=== PATIENT | female | born 1960 | race Caucasian/White ===

== ENCOUNTER 2017-02-12 01:41 | Inpatient (IN) | payer MEDICARE ==
[~2017-02-12] VITALS: Ht 162.6 cm; Wt 51.3 kg
[~2017-02-12 01:41] MED LIST: ACYC-1 PO; AUGM875T PO; BUPR-197 PO; CARB200T16 PO; CLIN150 PO; DETR2TAB PO; IBUP800T23 PO; KLON2TAB PO; MACR100C PO; TESS200C PO; VENTAER INH
[2017-02-12 01:55] VITALS: BP 119/81; PULSE 79; RESP 22; TEMP 98; O2SAT 99
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
[2017-02-12 02:37] LABS: ALT (GPT) 19 U/L (10-53); ANION GAP 8 MEQ/L (5-15); AST (GOT) 21 U/L (15-37); BICARBONATE 28.5 MEQ/L (21.0-32.0); BLOOD UREA NITROGEN 5 MG/DL (7-18); CHLORIDE 103 MEQ/L (98-107); GLOMERULAR FILTRATION RATE 68 ML/MIN (>89); POTASSIUM 3.9 MEQ/L (3.5-5.1); SODIUM (NA) 139 MEQ/L (136-145)
[2017-02-12 02:39] LABS: ACETAMINOPHEN LESS THAN 2.0 MCG/ML (10.0-30.0); ALKALINE PHOSPHATASE 130 U/L (45-117); TOTAL BILIRUBIN ADULT 0.5 MG/DL (0.2-1.0)
[2017-02-12 04:22] LABS: AMPHETAMINE, URINE NEG (NEG); BACTERIA, URINE RARE /hpf; BARBITURATES, URINE NEG (NEG); BLOOD, URINE NEG (NEG); COCAINE, URINE NEG (NEG); GLUCOSE,URINE NEG (NEG); KETONE, URINE NEG (NEG); NITRITE,URINE NEG (NEG); SQUAMOUS EPITHELIAL CELL URINE 1 /hpf (0-5); URINE COLOR YELLOW (YELLW/STRAW)
[2017-02-12 04:23] LABS: COMMENT (UR) CULT NOT INDICATED; CULTURE IF INDICATED CULT NOT INDICATED
[2017-02-12 06:12] VITALS: BP 115/78; PULSE 75; RESP 20; O2SAT 99
[2017-02-12 10:25] VITALS: BP 122/70; PULSE 92; RESP 18; TEMP 99; O2SAT 95
[2017-02-12] MEDS ORDERED: OLANZapine ODT 10 MG TAB PO ONE (12:45)
[2017-02-12] MEDS ORDERED: PHEN-426 PO (12:57)
[2017-02-12] MEDS ORDERED: carBAMazepine 200 MG TAB PO SCH (13:00)
[2017-02-12] MEDS ORDERED: BENZ1TAB PO (13:34)
[2017-02-12] MEDS ORDERED: SAPH10SU3 SL (13:34)
[2017-02-12] MEDS ORDERED: ZYPR15TA PO (13:34)
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
[2017-02-12 14:00] VITALS: BP 107/59; PULSE 87; RESP 18
[2017-02-12] MEDS ORDERED: PHENAZOPYRIDINE HCL 100 MG TAB PO PRN (14:00)
[2017-02-12] MEDS ORDERED: MAGNESIUM HYDROXIDE SUSP 30 ML CUP PO PRN (14:00)
[2017-02-12] MEDS ORDERED: ALUMINUM/MAGNESIUM/SIMETH 30 ML CUP PO PRN (14:00)
[2017-02-12] MEDS ORDERED: ALBUTEROL SULFATE 90 MCG/ACT HFA 18 GM INHALER INH PRN (14:15)
[2017-02-12] MEDS ORDERED: clonazePAM 1 MG TAB PO ONE (15:00)
[2017-02-12] MEDS: buPROPion HCL 100 MG TAB PO SCH (15:00)
[2017-02-12] MEDS ORDERED: OLANZapine 10 MG TAB PO ONE (15:00)
[2017-02-12] MEDS ORDERED: buPROPion HCL 100 MG SUSTAINED RELEASE TAB PO ONE (15:00)
[2017-02-12] MEDS: NICOTINE 21 MG/24 HR PATCH T-DERMAL SCH (16:00)
[2017-02-12 16:55] VITALS: BP 109/66; PULSE 83; RESP 19; TEMP 98.3; O2SAT 97
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
[2017-02-12] MEDS ORDERED: NICOTINE 21 MG/24 HR PATCH T-DERMAL SCH (18:00)
[2017-02-12] MEDS ORDERED: LORazepam 2 MG/ML VIAL IM PRN (18:00)
[2017-02-12] MEDS: ACYCLOVIR 800 MG TAB PO SCH (18:00)
[2017-02-12] MEDS ORDERED: diphenhydrAMINE HCL 50 MG/ML VIAL IM PRN (18:00)
[2017-02-12] MEDS ORDERED: REMOVE OLD PATCH T-DERMAL SCH ×2 (18:00→21:00)
[2017-02-12] MEDS: REMOVE OLD PATCH T-DERMAL SCH (21:00)
[2017-02-12] MEDS ORDERED: ASENAPINE 10 MG SL SCH (21:00)
[2017-02-12] MEDS ORDERED: SAPHRIS 5 MG SL SCH (21:00)
[2017-02-12] MEDS: BENZTROPINE MESYLATE 1 MG TAB PO SCH (21:00)
[2017-02-13] MEDS: ACETAMINOPHEN 325 MG TAB PO PRN ×2 (01:06→21:42)
[2017-02-13 05:53] VITALS: BP 117/56; PULSE 87; RESP 16; TEMP 97.1; O2SAT 100
[2017-02-13] MEDS: buPROPion HCL 100 MG TAB PO SCH ×2 (08:00→15:00)
[2017-02-13] MEDS: ACYCLOVIR 800 MG TAB PO SCH ×4 (08:56→21:00)
[2017-02-13] MEDS: NICOTINE 21 MG/24 HR PATCH T-DERMAL SCH (08:57)
--- NOTE | 2017-02-13 14:49 | HHI.PYPN ---
Subjective Remarks This is a request for second opinion. Patient was seen, admission note reviewed , and case discussed with nursing. Patient is hyperverbal with pressured speech. She is perseverative on discharge and minimizes her reasons for admission. When discussing her recent psychosis and history of mental health she becomes further irritable. He is not on medications at this time and we are waiting to obtain consents. Patient says she has a somewhat she could provide a phone number for the nursing will continue to work on it. Denies suicidal ideation intent or plan. Objective Alert: Yes [place]: Person (ox4), Place, Date Mood: Oppositional Affect: Labile Memory Intact: Comment (unable to tets) Hallucinations: Other (negative) Delusions: Yes Delusion Type: Paranoid Suicidal: Ideation (negative) Homicidal: Ideation (negative) Insight/Judgment Poor Vitals/IOs Vital Signs Date Time Temp Pulse Resp B/P Pulse Ox O2 Delivery O2 Flow Rate FiO2 02/13/17 05:53 97.1 87 16 117/56 100 02/12/17 14:00 Room Air Assessment & Plan Problem List: (1) Bipolar disorder with psychotic features ICD Code: F31.9 Assessment & Plan I agree with first opinion to continue petition. Criteria include labile mood with psychosis Justification for Cont. Inpt. Patient will decompensate in a less restrictive setting Apollo Hope DO Feb 13, 2017 14:49
[2017-02-13 15:17] VITALS: BP 112/60; PULSE 87; RESP 18; TEMP 99; O2SAT 99
[2017-02-13] MEDS: REMOVE OLD PATCH T-DERMAL SCH (21:00)
[2017-02-13] MEDS: BENZTROPINE MESYLATE 1 MG TAB PO SCH (21:39)
[2017-02-14] MEDS ORDERED: LORazepam 2 MG/ML VIAL IM ONE (00:45)
[2017-02-14] MEDS ORDERED: OLANZapine IM 10 MG VIAL IM ONE (00:45)
[2017-02-14 06:07] VITALS: BP 118/66; PULSE 77; RESP 21; TEMP 98; O2SAT 96
[2017-02-14] MEDS: ACYCLOVIR 800 MG TAB PO SCH ×5 (09:00→20:57)
[2017-02-14] MEDS: NICOTINE 21 MG/24 HR PATCH T-DERMAL SCH (09:26)
--- NOTE | 2017-02-14 11:28 | HHI.PYPN ---
Subjective Remarks Patient seen and examined with counselor and nurse. Chart reviewed. Case discussed with nursing staff who reports patient refused her laboratories this morning and believes that her brother is pursuing her. On my examination today , the patient is initially able to maintain reasonably linear thought but derails towards the end of our conversation. She articulates a belief that her brother is pursuing her and showing up at her hotel room and slashing her tires. She then deteriorates into random phrases including, "name of sign in [place]." "9 words." "I'm not a toilet." She also articulates a belief that "James Louis from [employer] is stalking me." She is fairly conversant regarding her medications and is able to list most of them. I have explained that the Saphris is not stocked in our pharmacy. We are awaiting consents for medications. Review of Systems ROS Limitations: Psychotic, Poor Historian Except as stated in HPI: all other systems reviewed are Neg Objective Alert: Yes [place]: Person, Place Mood: Anxious Affect: Blunted Memory Intact: Comment (not formally assessed) Hallucinations: Other (no AVH) Delusions: Yes Delusion Type: Paranoid (believes that brother and Christopher Louis are stalking her) Suicidal: Ideation (no SI) Homicidal: Ideation (no HI) Insight/Judgment Poor Remarks No motor abnormalities noted. Speech somewhat rambling. Thought process initially linear but derails with extended interview. Grooming and hygiene fair. Labs Labs reviewed. Patient did refuse several laboratories this morning, I will ask the nursing staff to try to have the aircraft engine installer obtain these later today. Vitals/IOs Vital Signs Date Time Temp Pulse Resp B/P Pulse Ox O2 Delivery O2 Flow Rate FiO2 02/14/17 06:07 98.0 77 21 118/66 96 02/12/17 14:00 Room Air Assessment & Plan Problem List: (1) Bipolar disorder ICD Code: F31.9 Assessment & Plan I have asked nursing staff to obtain consents for medications. We can continue patient's Klonopin, Wellbutrin, Tegretol and Saphris if she can have in this last medication brought in from home. Continue to monitor on the high acuity unit. Continue other medications and care as ordered. I have also asked the family law legal assistant to obtain the full text of the affidavit accompanying the ex parte order as this was not available on the chart for my review. Justification for Cont. Inpt. Impairment in reality construction. High risk for decompensation in a less restrictive environment. Discharge Planning Pending psychiatric stabilization. Problem Qualifiers (1) Bipolar disorder: Qualified Code: F31.64 - Bipolar disorder, current episode mixed, severe, with psychotic features Estuardo Mancilla MD Feb 14, 2017 11:28
[2017-02-14] MEDS: buPROPion HCL 100 MG TAB PO SCH (15:00)
[2017-02-14] MEDS: LORazepam 1 MG TAB PO PRN (15:40)
[2017-02-14] MEDS ORDERED: HALOPERIDOL LACTATE 5 MG/ML AMP IM STA (16:51)
[2017-02-14] MEDS ORDERED: diphenhydrAMINE HCL 50 MG/ML VIAL IM STA (16:51)
[2017-02-14] MEDS ORDERED: LORazepam 2 MG/ML VIAL IM STA (16:51)
[2017-02-14] MEDS: clonazePAM 0.5 MG TAB PO SCH (20:56)
[2017-02-14] MEDS: diphenhydrAMINE HCL 50 MG CAP PO PRN (20:56)
[2017-02-14] MEDS: carBAMazepine 200 MG TAB PO SCH (20:57)
[2017-02-14] MEDS: BENZTROPINE MESYLATE 1 MG TAB PO SCH (20:57)
[2017-02-14] MEDS: REMOVE OLD PATCH T-DERMAL SCH (21:00)
[2017-02-15 06:00] VITALS: BP 87/55; PULSE 67; RESP 18; TEMP 97.9; O2SAT 99
[2017-02-15] MEDS: buPROPion HCL 100 MG TAB PO SCH (08:00)
[2017-02-15] MEDS: carBAMazepine 200 MG TAB PO SCH ×2 (08:28→21:28)
[2017-02-15] MEDS: NICOTINE 21 MG/24 HR PATCH T-DERMAL SCH (08:29)
[2017-02-15] MEDS: ACYCLOVIR 800 MG TAB PO SCH ×4 (08:35→21:00)
[2017-02-15] MEDS ORDERED: clonazePAM 0.5 MG TAB PO SCH (09:00)
--- NOTE | 2017-02-15 11:09 | HHI.PYPN ---
Subjective Remarks Patient seen and examined with counselor and nurse. Chart reviewed. Case discussed with counselor, nurse and occupational therapist in treatment team. Per nursing staff, patient has been no further behavioral problem. On my examination today, the patient seems more linear in her thought process. We review her medications. The patient requests that her Klonopin be consolidated entirely to at night. She denies any SI or HI. She denies any AVH. She denies any side effects from medications. I did discuss patient's case with her outpatient bilingual patient support caseworker from the [facility] team, Fredi over the phone. She reports that the plan was to discontinue patient's Saphris anyway with Zyprexa as a replacement. Fredi notes that even at the patient's baseline she can maintain linear thought for only a brief time and then deteriorates into word salad. She has apparently been residing in a hotel recently because patient's mother is no longer able to care for her. Fredi is wondering if we would be able to place the patient in an assisted living setting. Review of Systems Except as stated in HPI: all other systems reviewed are Neg Objective Alert: Yes [place]: Person, Place Mood: Calm Affect: Blunted Memory Intact: Comment (not formally assessed) Hallucinations: Other (none) Delusions: No Delusion Type: Other (no delusional material elicited today) Suicidal: Ideation (no SI) Homicidal: Ideation (no HI) Insight/Judgment Poor Remarks No abnormal motor movements noted. Thought process more linear. Speech more logical and coherent. Labs Labs reviewed. No new labs. Vitals/IOs Vital Signs Date Time Temp Pulse Resp B/P Pulse Ox O2 Delivery O2 Flow Rate FiO2 02/15/17 06:00 97.9 67 18 87/55 99 02/12/17 14:00 Room Air Assessment & Plan Problem List: (1) Bipolar disorder ICD Code: F31.9 Assessment & Plan Continue current psychotropics as ordered except I will discontinue patient's Saphris, which she has not been receiving any way as it is not stocked in our pharmacy. I will additionally consolidate patient's Klonopin all to at bedtime. Check a set of orthostatics. I have asked the counselor to return to the unit to explore whether the patient is interested in assisted living placement at this time as I think that it would be fruitless to pursue this if she is set against it. Continue to monitor on the high acuity unit. Continue other medications and care as ordered. Justification for Cont. Inpt. Medication changes in process. Patient requires further stabilization and remains at high risk for decompensation until this occurs. Discharge Planning Pending psychiatric stabilization. GROUP HOME placement versus home. Request HC Surrog/Guard Advoc?: Yes Problem Qualifiers (1) Bipolar disorder: Qualified Code: F31.64 - Bipolar disorder, current episode mixed, severe, with psychotic features Estuardo Mancilla MD Feb 15, 2017 11:09
[2017-02-15] MEDS: buPROPion HCL 150 MG SUSTAINED RELEASE TAB PO SCH (12:32)
[2017-02-15 14:07] VITALS: BP 104/55; PULSE 89
[2017-02-15 14:08] VITALS: BP 100/58; PULSE 87
[2017-02-15 14:09] VITALS: BP 103/67; PULSE 96
[2017-02-15 14:49] LABS: BACTERIA, URINE RARE /hpf; BLOOD, URINE NEG (NEG); GLUCOSE,URINE NEG (NEG); KETONE, URINE NEG (NEG); NITRITE,URINE NEG (NEG); SQUAMOUS EPITHELIAL CELL URINE 4 /hpf (0-5); URINE COLOR LIGHT-YELLOW (YELLW/STRAW)
[2017-02-15 17:37] VITALS: BP 107/68; PULSE 80; RESP 16; TEMP 98.2; O2SAT 99
[2017-02-15] MEDS: REMOVE OLD PATCH T-DERMAL SCH (21:00)
[2017-02-15] MEDS: clonazePAM 0.5 MG TAB PO SCH (21:00)
[2017-02-15] MEDS: clonazePAM 1 MG TAB PO SCH (21:28)
[2017-02-15] MEDS: DOCUSATE SODIUM 100 MG CAP PO SCH (21:28)
[2017-02-15] MEDS: BENZTROPINE MESYLATE 1 MG TAB PO SCH (21:28)
[2017-02-15] MEDS: ACETAMINOPHEN 325 MG TAB PO PRN (21:34)
[2017-02-16 05:50] VITALS: BP 105/54; PULSE 74; RESP 17; TEMP 97; O2SAT 99
[2017-02-16] MEDS: buPROPion HCL 75 MG TAB PO SCH ×2 (08:00→12:23)
[2017-02-16 08:09] LABS: AUTOMATED NEUTROPHIL # 1.3 TH/MM3 (1.8-7.7); BASOPHIL % 1.2 % (0.0-2.0); EOSINOPHIL # 0.2 TH/MM3 (0-0.4); EOSINOPHIL % 6.7 % (0.0-4.0); HEMATOCRIT 35.2 % (35.0-46.0); HEMO FLAGS DIFF FINAL; LYMPH % 46.6 % (9.0-44.0); LYMPHOCYTE # 1.6 TH/MM3 (1.0-4.8); MEAN CELL VOLUME 101.4 FL (80.0-100.0); MEAN CORPUSCULAR HEMOGLOBIN 34.7 PG (27.0-34.0); MEAN CORPUSCULAR HGB CONC 34.3 % (32.0-36.0); MONO % 7.7 % (0.0-8.0); NEUT % 37.8 % (16.0-70.0); PLATELET COUNT 220 TH/MM3 (150-450); RED BLOOD COUNT 3.47 MIL/MM3 (4.00-5.30); RED CELL DISTRIBUTION WIDTH 13.4 % (11.6-17.2); WHITE BLOOD COUNT 3.4 TH/MM3 (4.0-11.0)
[2017-02-16] MEDS: buPROPion HCL 150 MG SUSTAINED RELEASE TAB PO SCH (08:33)
[2017-02-16] MEDS: DOCUSATE SODIUM 100 MG CAP PO SCH ×2 (08:34→20:31)
[2017-02-16] MEDS: carBAMazepine 200 MG TAB PO SCH ×2 (08:34→20:31)
[2017-02-16] MEDS: ACYCLOVIR 800 MG TAB PO SCH (08:35)
[2017-02-16] MEDS: NICOTINE 21 MG/24 HR PATCH T-DERMAL SCH (08:35)
[2017-02-16 08:44] LABS: ALKALINE PHOSPHATASE 94 U/L (45-117); ALT (GPT) 15 U/L (10-53); ANION GAP 6 MEQ/L (5-15); AST (GOT) 13 U/L (15-37); BICARBONATE 29.6 MEQ/L (21.0-32.0); BLOOD UREA NITROGEN 11 MG/DL (7-18); CHLORIDE 101 MEQ/L (98-107); GLOMERULAR FILTRATION RATE 84 ML/MIN (>89); POTASSIUM 4.2 MEQ/L (3.5-5.1); SODIUM (NA) 137 MEQ/L (136-145); TOTAL BILIRUBIN ADULT 0.2 MG/DL (0.2-1.0)
--- NOTE | 2017-02-16 11:59 | HHI.PYPN ---
Subjective Remarks Patient seen and examined with nurse and counselor. Chart reviewed. Case discussed with nursing staff reports patient has been no behavioral problem. On my examination today, the patient is calm and pleasant. As noted by the patient's corrections caseworker as a feature of the patient's baseline, the patient is able to maintain linear conversation for a fair amount of time today before derailing. We discuss concerns regarding patient's reported weight loss, but she says "I don't know why I am losing weight. My body just does this, off and on." I recommend senior technical recruiter or perhaps hospitalist consultation to evaluate this ; patient is somewhat reluctant. No SI/HI. Denies side effects from medications. Requests that Colace be titrated to 200 mg twice daily as this is what she takes at home. I have discussed outpatient treatment team's desire that the patient allow herself to be placed in an assisted living facility, and I have suggested this to her myself. The patient declines assisted living placement at this time. I did discuss patient's case briefly with her outpatient corrections caseworker over the phone. Review of Systems Except as stated in HPI: all other systems reviewed are Neg Objective Alert: Yes [place]: Person, Place Mood: Calm Affect: Appropriate Memory Intact: Comment (not formally assessed) Hallucinations: Other (no AVH) Delusions: No Delusion Type: Other (no delusions) Suicidal: Ideation (no suicidal ideation) Homicidal: Ideation (no homicidal ideation) Insight/Judgment Fair at best Remarks Thought processes fairly linear initially and then derails. No motor abnormalities noted. Grooming and hygiene fair. Labs Test 02/15/17 02/16/17 13:10 06:28 Urine Color LIGHT-YELLOW Urine Turbidity CLEAR Urine pH 6.0 Urine Specific [place] 1.005 Urine Protein NEG mg/dL Urine Glucose (UA) NEG mg/dL Urine Ketones NEG mg/dL Urine Occult Blood NEG Urine Nitrite NEG Urine Bilirubin NEG Urine Urobilinogen LESS THAN 2.0 MG/DL Urine Leukocyte Esterase NEG Urine RBC LESS THAN 1 /hpf Urine WBC 1 /hpf Urine Squamous Epithelial 4 /hpf Cells Urine Bacteria RARE /hpf Microscopic Urinalysis Comment White Blood Count 3.4 TH/MM3 Red Blood Count 3.47 MIL/MM3 Hemoglobin 12.0 GM/DL Hematocrit 35.2 % Mean Corpuscular Volume 101.4 FL Mean Corpuscular Hemoglobin 34.7 PG Mean Corpuscular Hemoglobin 34.3 % Concent Red Cell Distribution Width 13.4 % Platelet Count 220 TH/MM3 Mean Platelet Volume 8.9 FL Neutrophils (%) (Auto) 37.8 % Lymphocytes (%) (Auto) 46.6 % Monocytes (%) (Auto) 7.7 % Eosinophils (%) (Auto) 6.7 % Basophils (%) (Auto) 1.2 % Neutrophils # (Auto) 1.3 TH/MM3 Lymphocytes # (Auto) 1.6 TH/MM3 Monocytes # (Auto) 0.3 TH/MM3 Eosinophils # (Auto) 0.2 TH/MM3 Basophils # (Auto) 0.0 TH/MM3 CBC Comment DIFF FINAL Differential Comment Sodium Level 137 MEQ/L Potassium Level 4.2 MEQ/L Chloride Level 101 MEQ/L Carbon Dioxide Level 29.6 MEQ/L Anion Gap 6 MEQ/L Blood Urea Nitrogen 11 MG/DL Creatinine 0.72 MG/DL Estimat Glomerular Filtration 84 ML/MIN Rate Random Glucose 81 MG/DL Calcium Level 8.2 MG/DL Total Bilirubin 0.2 MG/DL Aspartate Amino Transf 13 U/L (AST/SGOT) Alanine Aminotransferase 15 U/L (ALT/SGPT) Alkaline Phosphatase 94 U/L Total Protein 5.8 GM/DL Albumin 3.0 GM/DL Thyroid Stimulating Hormone 2.180 uIU/ML 3rd Gen Labs reviewed. Leukopenia noted. Granulocytopenia noted. Both of these findings are new. Albumin low. Vitals/IOs Vital Signs Date Time Temp Pulse Resp B/P Pulse Ox O2 Delivery O2 Flow Rate FiO2 02/16/17 05:50 97.0 74 17 105/54 99 02/12/17 14:00 Room Air Assessment & Plan Problem List: (1) Bipolar disorder ICD Code: F31.9 Assessment & Plan Recheck CBC. Concern would be for granulocytopenia in the setting of antipsychotic treatment. If ANC remains low on recheck, will plan to consult the hospitalist. Continue current psychotropics as ordered for now. Consult with the dietitian. Continue to monitor on the inpatient unit. Continue other medications and care as ordered. Patient may sign voluntary and consent for medications. Justification for Cont. Inpt. Complicating conditions, possible granulocytopenia. Discharge Planning Complicating conditions may extend patient's hospital stay beyond the weekend, although in other respects she appears to be at or near her reported psychiatric baseline. Request HC Surrog/Guard Advoc?: Yes Problem Qualifiers (1) Bipolar disorder: Qualified Code: F31.64 - Bipolar disorder, current episode mixed, severe, with psychotic features Estuardo Mancilla MD Feb 16, 2017 11:59
[2017-02-16 18:40] VITALS: BP 116/57; PULSE 93; RESP 18; TEMP 100.3; O2SAT 99
[2017-02-16] MEDS: REMOVE OLD PATCH T-DERMAL SCH (20:31)
[2017-02-16] MEDS: BENZTROPINE MESYLATE 1 MG TAB PO SCH (20:31)
[2017-02-16] MEDS: clonazePAM 1 MG TAB PO SCH (20:31)
[2017-02-17 05:30] VITALS: BP 85/47; PULSE 77; RESP 17; TEMP 98.1; O2SAT 99
[2017-02-17 08:25] LABS: AUTOMATED NEUTROPHIL # 1.9 TH/MM3 (1.8-7.7); BASOPHIL % 1.1 % (0.0-2.0); EOSINOPHIL # 0.2 TH/MM3 (0-0.4); EOSINOPHIL % 4.9 % (0.0-4.0); HEMATOCRIT 34.6 % (35.0-46.0); HEMO FLAGS DIFF FINAL; LYMPH % 36.3 % (9.0-44.0); LYMPHOCYTE # 1.4 TH/MM3 (1.0-4.8); MEAN CELL VOLUME 99.7 FL (80.0-100.0); MEAN CORPUSCULAR HGB CONC 35.1 % (32.0-36.0); NEUT % 50.7 % (16.0-70.0); PLATELET COUNT 241 TH/MM3 (150-450); RED BLOOD COUNT 3.47 MIL/MM3 (4.00-5.30); RED CELL DISTRIBUTION WIDTH 13.3 % (11.6-17.2); WHITE BLOOD COUNT 3.7 TH/MM3 (4.0-11.0)
[2017-02-17] MEDS: buPROPion HCL 75 MG TAB PO SCH ×2 (08:42→12:12)
[2017-02-17] MEDS: carBAMazepine 200 MG TAB PO SCH ×2 (08:55→21:19)
[2017-02-17] MEDS: DOCUSATE SODIUM 100 MG CAP PO SCH ×2 (09:00→21:00)
[2017-02-17] MEDS: NICOTINE 21 MG/24 HR PATCH T-DERMAL SCH (09:00)
--- NOTE | 2017-02-17 11:48 | HHI.PYPN ---
Subjective Remarks Patient seen and examined with counselor. Chart reviewed. Case discussed with nursing staff who reports patient is rambling and discharge focused. On my examination today, the patient shows me a sheaf of newspaper advertisements for apartments. She insists that she be discharged so that she can look into some of them. She denies any SI or HI. Denies AVH. Thought process initially linear but then derails as before. Denies side effects from medications. I was preparing to discharge the patient AGAINST MEDICAL ADVICE and called over to patient's outpatient case reviewer, Fredi, to discuss my medical concerns about the patient as detailed below. I reached the case reviewer supervisor building maintenance and also spoke with patient's outpatient psychiatrist, Dr. Sylvester. They note that the patient is not at her baseline, but rather is at her recent baseline, which is in fact significantly decompensated from her normal level of function. Fredi is relatively new to the practice and so was unfortunately mistaken. Dr. ySlvester highlights patient's recurrent hospitalizations and significant functional impairment in the outpatient setting. He is gravely concerned about her ability to survive outside of the hospital at this time. Review of Systems ROS Limitations: Poor Historian Except as stated in HPI: all other systems reviewed are Neg Objective Alert: Yes [place]: Person, Place Mood: Calm Affect: Appropriate Memory Intact: Comment (not formally assessed) Hallucinations: Other (no AVH) Delusions: No Delusion Type: Other (no gabby delusions) Suicidal: Ideation (no suicidal ideation) Homicidal: Ideation (no homicidal ideation) Insight/Judgment Poor Remarks Thought process initially fairly linear but derails during the course of conversation. Grooming and hygiene fair. Speech somewhat rambling. Labs Test 02/17/17 07:26 White Blood Count 3.7 TH/MM3 Red Blood Count 3.47 MIL/MM3 Hemoglobin 12.1 GM/DL Hematocrit 34.6 % Mean Corpuscular Volume 99.7 FL Mean Corpuscular Hemoglobin 35.0 PG Mean Corpuscular Hemoglobin 35.1 % Concent Red Cell Distribution Width 13.3 % Platelet Count 241 TH/MM3 Mean Platelet Volume 8.7 FL Neutrophils (%) (Auto) 50.7 % Lymphocytes (%) (Auto) 36.3 % Monocytes (%) (Auto) 7.0 % Eosinophils (%) (Auto) 4.9 % Basophils (%) (Auto) 1.1 % Neutrophils # (Auto) 1.9 TH/MM3 Lymphocytes # (Auto) 1.4 TH/MM3 Monocytes # (Auto) 0.3 TH/MM3 Eosinophils # (Auto) 0.2 TH/MM3 Basophils # (Auto) 0.0 TH/MM3 CBC Comment DIFF FINAL Differential Comment Labs reviewed. ANC is improved somewhat on the recheck but patient remains leukopenic. Vitals/IOs Vital Signs Date Time Temp Pulse Resp B/P Pulse Ox O2 Delivery O2 Flow Rate FiO2 02/17/17 05:30 98.1 77 17 85/47 99 Assessment & Plan Problem List: (1) Bipolar disorder ICD Code: F31.9 Assessment & Plan Patient with leukopenia, possible granulocytopenia in the setting of antipsychotic treatment, although the patient has been refusing the last few doses of Zyprexa. I will consult the hospitalist to further evaluate this. I will hold patient's Zyprexa but continue her other psychotropics as ordered. Plan to check a carbamazepine level later this week. In light of new information from outpatient providers, I cannot discharge the patient at this time. If the patient completes of formal right of release, I will plan to initiate a petition for involuntary psychiatric hospitalization. Dietitian statistical consultant input noted and appreciated. Continue to monitor on the high acuity unit in the meantime. Continue other medications and care as ordered. Justification for Cont. Inpt. High risk for decompensation and a restrictive environment. Possible complicating conditions, namely the leukopenia. Discharge Planning Retain on the inpatient psychiatric unit for further observation and stabilization. I will ask the occupational therapist to evaluate the patient to further clarify her ability to complete activities of daily living. Request HC Surrog/Guard Advoc?: Yes Problem Qualifiers (1) Bipolar disorder: Qualified Code: F31.64 - Bipolar disorder, current episode mixed, severe, with psychotic features Estuardo Mancilla MD Feb 17, 2017 11:48
--- NOTE | 2017-02-17 15:52 | PD.CONS ---
HPI Service [facility] Hospitalists Consult Requested By Reason for Consult leukopenia Primary Care Physician No Primary Care Physician Diagnoses: (1) Bipolar disorder with psychotic features (2) Leukopenia History of Present Illness Mrs. Mcdowell is a 56 year old female. She is here with a bipolar manic phase with psychotic features. I am consulted to evaluate a finding of leukopenia. The patient reports to me that she has had a similar episode previously, but based on her present mental state (manic), I'm not certain that information is reliable. She has no complaints of a viral syndrome. No knowledge of immunocompromise, such as HIV. Review of Systems Constitutional: DENIES: Fever, Chills Eyes: DENIES: Blurred vision Ears, nose, mouth, throat: DENIES: Hearing loss, Vertigo Respiratory: DENIES: Shortness of breath Cardiovascular: DENIES: Chest pain Gastrointestinal: DENIES: Abdominal pain, Black stools, Bloody stools Genitourinary: DENIES: Abnormal vaginal bleeding Musculoskeletal: DENIES: Joint pain Integumentary: DENIES: Abnormal pigmentation Hematologic/lymphatic: DENIES: Bruising Immunologic/allergic: DENIES: Eczema Neurologic: DENIES: Abnormal gait Psychiatric: DENIES: Anxiety Past Family Social History Allergies: Coded Allergies: Erythromycin (Verified Allergy, Severe, 02/12/17) Bactrim (Verified Allergy, Intermediate, Nausea/Vomiting, blurred vision, 02/12/17) Flagyl (Verified Allergy, Mild, Hives, 02/12/17) Spade (Verified Allergy, Unknown, Rash, 02/12/17) Per patient, she gets a rash from Spade. Past Medical History Smoking Bipolar Disorder Past Surgical History Appendectomy Breast Augmentation Reported Medications Reported Meds & Active Scripts Active Cleocin (Clindamycin HCl) 150 Mg Cap 300 Mg PO Q8 Zovirax 800 Mg Tab (Acyclovir) 800 Mg Tab 800 Mg PO QID Ventolin Hfa (Albuterol Sulfate) 18 Gm Aero 2 Puff INH Q4HPRN * SHAKE WELL BEFORE USE * Reported Zyprexa (Olanzapine) 15 Mg Tab 15 Mg PO HS Saphris (Asenapine) 10 Mg Subl 10 Mg SL HS Benztropine (Benztropine Mesylate) 1 Mg Tab 1 Mg PO HS Phenazopyridine (Phenazopyridine HCl) 100 Mg Tab 100 Mg PO Q8H PRN Wellbutrin (Bupropion HCl) 100 Mg Tab 150 Mg PO AM-NOON Tegretol (Carbamazepine) 200 Mg Tab 200 Mg PO BID Klonopin (Clonazepam) 2 Mg Tab 1.5 Mg PO HS Active Ordered Medications Administered Medications Medications (Trade) Dose Ordered Sig/Addis Route PRN Reason Start Time Stop Time Status Last Admin Dose Admin Acetaminophen (Tylenol) 650 mg Q4H PRN PO Pain 1-5 or Temp >101F 02/12/17 14:00 02/15/17 21:34 Nicotine (Habitrol 21 Mg Patch.24 Hr) 1 patch DAILY T-DERMAL 02/12/17 14:00 02/16/17 08:35 Miscellaneous Information 1 HS T-DERMAL 02/12/17 21:00 02/14/17 21:00 Benztropine Mesylate (Cogentin) 1 mg HS PO 02/12/17 21:00 02/16/17 20:31 Lorazepam (Ativan) 1 mg Q6H PRN PO MODERATE TO SEVERE ANXIETY 02/12/17 18:00 02/14/17 15:40 Carbamazepine (TEGretol) 200 mg BID PO 02/14/17 21:00 02/17/17 08:55 Clonazepam (KlonoPIN) 2 mg HS PO 02/15/17 21:00 02/16/17 20:31 Bupropion HCl (Wellbutrin) 150 mg DAILY@08,12 PO 02/16/17 08:00 02/17/17 12:12 Family History Unable to obtain Social History Nicotine/Smoking No alcohol No drug abuse Physical Exam Vital Signs Vital Signs Date Time Temp Pulse Resp B/P Pulse Ox O2 Delivery O2 Flow Rate FiO2 02/17/17 05:30 98.1 77 17 85/47 99 02/16/17 18:40 100.3 93 18 116/57 99 Physical Exam GENERAL: NAD, A&Ox2 SKIN: Warm and dry. HEAD: Normocephalic. EYES: No scleral icterus. No injection or drainage. NECK: Supple, trachea midline. No JVD or lymphadenopathy. CARDIOVASCULAR: Regular rate and rhythm without murmurs, gallops, or rubs. RESPIRATORY: Breath sounds equal bilaterally. No accessory muscle use. GASTROINTESTINAL: Abdomen soft, non-tender, nondistended. MUSCULOSKELETAL: No cyanosis, or edema. BACK: Nontender without obvious deformity. No CVA tenderness. Laboratory Laboratory Tests Test 02/17/17 07:26 White Blood Count 3.7 Red Blood Count 3.47 Hemoglobin 12.1 Hematocrit 34.6 Mean Corpuscular Volume 99.7 Mean Corpuscular Hemoglobin 35.0 Mean Corpuscular Hemoglobin 35.1 Concent Red Cell Distribution Width 13.3 Platelet Count 241 Mean Platelet Volume 8.7 Neutrophils (%) (Auto) 50.7 Lymphocytes (%) (Auto) 36.3 Monocytes (%) (Auto) 7.0 Eosinophils (%) (Auto) 4.9 Basophils (%) (Auto) 1.1 Neutrophils # (Auto) 1.9 Lymphocytes # (Auto) 1.4 Monocytes # (Auto) 0.3 Eosinophils # (Auto) 0.2 Basophils # (Auto) 0.0 CBC Comment DIFF FINAL Differential Comment Result Diagram: 02/17/17 0726 02/16/17 0628 Assessment and Plan Problem List: (1) Leukopenia ICD Code: D72.819 Status: Acute Plan: Etiology not yet certain Borderline low Follow for now HIV screen CBC in AM (2) Bipolar disorder with psychotic features ICD Code: F31.9 Status: Acute Plan: Continue present treatment for now If leukocytosis resolves there will be no reason to consider any changes Cirilo Monsivais MD Feb 17, 2017 15:52
[2017-02-17 19:00] VITALS: BP 130/86; PULSE 85; RESP 17; TEMP 98.2; O2SAT 99
[2017-02-17 20:39] LABS: HEMATOCRIT 35.3 % (35.0-46.0); MEAN CELL VOLUME 100.3 FL (80.0-100.0); MEAN CORPUSCULAR HEMOGLOBIN 34.1 PG (27.0-34.0); PLATELET COUNT 249 TH/MM3 (150-450); RED BLOOD COUNT 3.52 MIL/MM3 (4.00-5.30); RED CELL DISTRIBUTION WIDTH 13.7 % (11.6-17.2); REVIEW FLAG FINAL; WHITE BLOOD COUNT 4.8 TH/MM3 (4.0-11.0)
[2017-02-17] MEDS: REMOVE OLD PATCH T-DERMAL SCH (21:00)
[2017-02-17] MEDS: clonazePAM 1 MG TAB PO SCH (21:19)
[2017-02-17] MEDS: BENZTROPINE MESYLATE 1 MG TAB PO SCH (21:20)
[2017-02-18 05:33] VITALS: BP 94/51; PULSE 71; RESP 16; TEMP 97.3; O2SAT 97
[2017-02-18] MEDS: buPROPion HCL 75 MG TAB PO SCH ×2 (08:07→12:02)
[2017-02-18] MEDS: NICOTINE 21 MG/24 HR PATCH T-DERMAL SCH (09:00)
[2017-02-18] MEDS: DOCUSATE SODIUM 100 MG CAP PO SCH ×2 (09:00→21:00)
[2017-02-18] MEDS: carBAMazepine 200 MG TAB PO SCH ×2 (09:11→21:00)
--- NOTE | 2017-02-18 11:21 | HHI.PYPN ---
Subjective Remarks Patient seen and examined with counselor and nurse. Chart reviewed. Case discussed with nursing staff. On my examination today, the patient is quite discharge focused. She has completed a right of release. She refuses to rescind of this and insists that the report of her outpatient treatment team is wrong and further says that she is planning on leaving [facility] anyway. Thought process remains linear initially but the railing with extended conversation. She is somewhat intrusive. No reported side effects from medications. Review of Systems ROS Limitations: Psychotic, Poor Historian Except as stated in HPI: all other systems reviewed are Neg Objective Alert: Yes [place]: Person, Place Mood: Anxious Affect: Restricted Memory Intact: Comment (not formally assessed) Hallucinations: Other (no AVH) Delusions: No Delusion Type: Other (no delusions) Suicidal: Ideation (no suicidal ideation) Homicidal: Ideation (no homicidal ideation) Insight/Judgment Poor Remarks No motor abnormalities noted. Thought process disorganized with extended interview. Speech somewhat rambling. Labs Test 02/17/17 19:06 White Blood Count 4.8 TH/MM3 Red Blood Count 3.52 MIL/MM3 Hemoglobin 12.0 GM/DL Hematocrit 35.3 % Mean Corpuscular Volume 100.3 FL Mean Corpuscular Hemoglobin 34.1 PG Mean Corpuscular Hemoglobin 34.0 % Concent Red Cell Distribution Width 13.7 % Platelet Count 249 TH/MM3 Mean Platelet Volume 8.1 FL Labs reviewed. Leukopenia is improving. Vitals/IOs Vital Signs Date Time Temp Pulse Resp B/P Pulse Ox O2 Delivery O2 Flow Rate FiO2 02/18/17 05:33 97.3 71 16 94/51 97 Assessment & Plan Problem List: (1) Bipolar disorder ICD Code: F31.9 Assessment & Plan Continue to hold antipsychotics in light of leukopenia, although this appears to be resolving. I will also discontinue the Cogentin as there is no indication for it off of antipsychotics. Check a CBC on Tuesday and if this is within normal limits, could consider re-challenging with an antipsychotic after the weekend. Continue other psychotropics in the meanwhile. Continue to monitor on the high acuity unit. Continue other medications and care as ordered. In light of collateral from outpatient provider, I cannot discharge this patient at this time as I fear that she may have significant functional impairments apparent only in the community and not evident within the structure of the inpatient psychiatric unit. Patient is unwilling to remain on the unit for further stabilization. I will initiate a petition for involuntary psychiatric hospitalization in consult for a second opinion. Hospitalist consult input noted and appreciated. Justification for Cont. Inpt. Complicating conditions. High risk for decompensation in a less restrictive environment. Discharge Planning Pending psychiatric stabilization. Request HC Surrog/Guard Advoc?: Yes Problem Qualifiers (1) Bipolar disorder: Qualified Code: F31.64 - Bipolar disorder, current episode mixed, severe, with psychotic features Estuardo Mancilla MD Feb 18, 2017 11:21
[2017-02-18] MEDS: LORazepam 1 MG TAB PO PRN (12:07)
[2017-02-18 17:37] VITALS: BP 126/75; PULSE 93; RESP 16; TEMP 98.9; O2SAT 96
[2017-02-18] MEDS: REMOVE OLD PATCH T-DERMAL SCH (21:00)
[2017-02-18] MEDS: clonazePAM 1 MG TAB PO SCH (21:00)
[2017-02-19 05:22] VITALS: BP 102/55; PULSE 76; RESP 16; TEMP 97.6; O2SAT 100
[2017-02-19] MEDS: buPROPion HCL 75 MG TAB PO SCH ×2 (08:33→12:00)
[2017-02-19] MEDS: carBAMazepine 200 MG TAB PO SCH ×2 (08:33→21:10)
[2017-02-19] MEDS: NICOTINE 21 MG/24 HR PATCH T-DERMAL SCH (08:34)
[2017-02-19] MEDS: DOCUSATE SODIUM 100 MG CAP PO SCH ×2 (08:45→21:11)
[2017-02-19] MEDS: LORazepam 1 MG TAB PO PRN (09:14)
--- NOTE | 2017-02-19 13:37 | HHI.PYPN ---
Subjective Remarks Pt seen and discussed with staff. She is fixated on discharge and insists that MD provide her with Dr. Easton's personal phone number because he is going to be her outpatient doctor. She becomes increasingly disorganized as interview progresses. She shows MD lists of disorganized writing and states that MHTs have cleared her from having to go to an [facility] at discharge. No SI/HI. Objective Alert: Yes [place]: Person, Place Mood: Anxious Affect: Restricted Memory Intact: Comment (not formally assessed) Hallucinations: Other (no AVH) Delusions: No Delusion Type: Other (no delusions) Suicidal: Ideation (no suicidal ideation) Homicidal: Ideation (no homicidal ideation) Insight/Judgment poor Vitals/IOs Vital Signs Date Time Temp Pulse Resp B/P Pulse Ox O2 Delivery O2 Flow Rate FiO2 02/19/17 05:22 97.6 76 16 102/55 100 Assessment & Plan Problem List: (1) Bipolar disorder ICD Code: F31.9 Assessment & Plan Continue current tx plan. Estimated LOS: days Justification for Cont. Inpt. impairments in reality construction Request HC Surrog/Guard Advoc?: Yes Problem Qualifiers (1) Bipolar disorder: Qualified Code: F31.64 - Bipolar disorder, current episode mixed, severe, with psychotic features Trina Fernandez MD Feb 19, 2017 13:37
--- NOTE | 2017-02-19 14:05 | HHI.FPPN ---
Addendum to progress note ADDENDUM Reason for addendum: Additonal documentation Additional information Patient chart reviewed, labs reviewed, leukocytosis resolved no further changes needed. Vital signs stable. Will sign off for now. Reconsult if needed. Keshia Mustafa Feb 19, 2017 14:05
--- NOTE | 2017-02-19 14:13 | HHI.PR ---
Subjective Remarks Resolution of leukopenia. Resolution decreases the likelihood of any medication cause or immune disfunction. Possible periodic leukopenia as a stress response (rather than leukocytosis). No further work up needed. We will sign off as consultants today. Objective Vitals Vital Signs Date Time Temp Pulse Resp B/P Pulse Ox O2 Delivery O2 Flow Rate FiO2 02/19/17 05:22 97.6 76 16 102/55 100 02/18/17 17:37 98.9 93 16 126/75 96 Result Diagram: 02/17/17 1906 02/16/17 0628 A/P Problem List: (1) Leukopenia ICD Code: D72.819 Status: Acute (2) Bipolar disorder with psychotic features ICD Code: F31.9 Status: Acute Cirilo Monsivais MD Feb 19, 2017 14:13
[2017-02-19 16:00] VITALS: BP 123/67; PULSE 91; RESP 16; TEMP 98.2; O2SAT 99
[2017-02-19] MEDS: REMOVE OLD PATCH T-DERMAL SCH (21:00)
[2017-02-19] MEDS: clonazePAM 1 MG TAB PO SCH (21:11)
[2017-02-20 06:14] VITALS: BP 80/40; PULSE 67; RESP 16; TEMP 97.4; O2SAT 98
[2017-02-20 07:37] VITALS: BP 106/60
[2017-02-20] MEDS: carBAMazepine 200 MG TAB PO SCH ×2 (08:24→21:08)
[2017-02-20] MEDS: DOCUSATE SODIUM 100 MG CAP PO SCH ×2 (08:24→21:07)
[2017-02-20] MEDS: NICOTINE 21 MG/24 HR PATCH T-DERMAL SCH (08:24)
[2017-02-20] MEDS: buPROPion HCL 75 MG TAB PO SCH ×2 (08:24→11:44)
[2017-02-20 08:36] LABS: AUTOMATED NEUTROPHIL # 2.7 TH/MM3 (1.8-7.7); BASOPHIL % 0.8 % (0.0-2.0); EOSINOPHIL # 0.1 TH/MM3 (0-0.4); EOSINOPHIL % 2.9 % (0.0-4.0); HEMATOCRIT 39.7 % (35.0-46.0); HEMO FLAGS DIFF FINAL; LYMPH % 33.3 % (9.0-44.0); LYMPHOCYTE # 1.6 TH/MM3 (1.0-4.8); MEAN CELL VOLUME 100.5 FL (80.0-100.0); MEAN CORPUSCULAR HEMOGLOBIN 34.3 PG (27.0-34.0); MEAN CORPUSCULAR HGB CONC 34.1 % (32.0-36.0); MONO % 9.5 % (0.0-8.0); NEUT % 53.5 % (16.0-70.0); PLATELET COUNT 277 TH/MM3 (150-450); RED BLOOD COUNT 3.95 MIL/MM3 (4.00-5.30); RED CELL DISTRIBUTION WIDTH 13.9 % (11.6-17.2)
[2017-02-20 08:53] LABS: BICARBONATE 29.7 MEQ/L (21.0-32.0)
[2017-02-20] MEDS: LORazepam 1 MG TAB PO PRN ×2 (09:09→09:16)
--- NOTE | 2017-02-20 14:34 | HHI.PYPN ---
Subjective Remarks Pt seen and discussed with staff. She is more delusional and intrusive today. She wrote MD a disorganized letter fixating on Dr. Steiner and Dr. Easton. She was observed by MD and other staff at various times today, arguing and having animated conversations with unseen entities. No aggression. Objective Alert: Yes [place]: Person, Place Mood: Anxious Affect: Labile Memory Intact: Comment (fair) Hallucinations: Auditory, Other (internal stimuli) Delusions: No Delusion Type: Paranoid Suicidal: Ideation (no suicidal ideation) Homicidal: Ideation (no homicidal ideation) Insight/Judgment poor Labs Test 02/20/17 07:50 White Blood Count 5.0 TH/MM3 Red Blood Count 3.95 MIL/MM3 Hemoglobin 13.5 GM/DL Hematocrit 39.7 % Mean Corpuscular Volume 100.5 FL Mean Corpuscular Hemoglobin 34.3 PG Mean Corpuscular Hemoglobin 34.1 % Concent Red Cell Distribution Width 13.9 % Platelet Count 277 TH/MM3 Mean Platelet Volume 8.6 FL Neutrophils (%) (Auto) 53.5 % Lymphocytes (%) (Auto) 33.3 % Monocytes (%) (Auto) 9.5 % Eosinophils (%) (Auto) 2.9 % Basophils (%) (Auto) 0.8 % Neutrophils # (Auto) 2.7 TH/MM3 Lymphocytes # (Auto) 1.6 TH/MM3 Monocytes # (Auto) 0.5 TH/MM3 Eosinophils # (Auto) 0.1 TH/MM3 Basophils # (Auto) 0.0 TH/MM3 CBC Comment DIFF FINAL Differential Comment Sodium Level 134 MEQ/L Potassium Level 4.0 MEQ/L Chloride Level 97 MEQ/L Carbon Dioxide Level 29.7 MEQ/L Anion Gap 7 MEQ/L Blood Urea Nitrogen 10 MG/DL Creatinine 0.85 MG/DL Estimat Glomerular Filtration 69 ML/MIN Rate Random Glucose 82 MG/DL Calcium Level 9.3 MG/DL HIV (1&2) Antibody NEGATIVE Vitals/IOs Vital Signs Date Time Temp Pulse Resp B/P Pulse Ox O2 Delivery O2 Flow Rate FiO2 02/20/17 07:37 106/60 02/20/17 06:14 97.4 67 16 98 Assessment & Plan Problem List: (1) Bipolar disorder ICD Code: F31.9 Assessment & Plan Antipsychotics are on hold due to leukopenia. Plan to rechallenge after weekend. Continue hospitalization. Estimated LOS: days Justification for Cont. Inpt. complicating medical condition, impairments in reality construction. Request HC Surrog/Guard Advoc?: Yes Problem Qualifiers (1) Bipolar disorder: Qualified Code: F31.64 - Bipolar disorder, current episode mixed, severe, with psychotic features Trina Fernandez MD Feb 20, 2017 14:33
[2017-02-20 18:00] VITALS: BP 113/63; PULSE 87; RESP 18; TEMP 99.1; O2SAT 100
[2017-02-20] MEDS: REMOVE OLD PATCH T-DERMAL SCH (21:00)
[2017-02-20] MEDS: clonazePAM 1 MG TAB PO SCH (21:08)
[2017-02-21 06:28] VITALS: BP 93/61; PULSE 87; RESP 20; TEMP 97.6; O2SAT 100
[2017-02-21] MEDS: buPROPion HCL 75 MG TAB PO SCH ×2 (08:00→12:22)
[2017-02-21] MEDS: DOCUSATE SODIUM 100 MG CAP PO SCH ×3 (08:21→21:24)
[2017-02-21] MEDS: carBAMazepine 200 MG TAB PO SCH ×2 (08:21→21:19)
[2017-02-21] MEDS: NICOTINE 21 MG/24 HR PATCH T-DERMAL SCH (09:00)
--- NOTE | 2017-02-21 14:37 | HHI.PYPN ---
Subjective Remarks Continues to demonstrate hypomanic to manic behavior. Flight of ideas and rapid speech. Easily agitated. Review of Systems ROS Limitations: Clinical Condition Objective Alert: Yes [place]: Person, Place Mood: Anxious Affect: Labile Memory Intact: Comment (fair) Hallucinations: Auditory, Other (internal stimuli) Delusions: No Delusion Type: Paranoid Suicidal: Ideation (no suicidal ideation) Homicidal: Ideation (no homicidal ideation) Insight/Judgment Impaired Vitals/IOs Vital Signs Date Time Temp Pulse Resp B/P Pulse Ox O2 Delivery O2 Flow Rate FiO2 02/21/17 06:28 97.6 87 20 93/61 100 Intake and Output 02/20/17 02/20/17 02/21/17 08:00 16:00 00:00 Intake Total 360 ml Balance 360 ml Assessment & Plan Problem List: (1) Bipolar disorder ICD Code: F31.9 Assessment & Plan Estimated LOS: 5 days continues to exhibit psychotic symptoms and medications need more time to stabilize her. Justification for Cont. Inpt. Will decompensate at lower level of care. Request HC Surrog/Guard Advoc?: Yes Problem Qualifiers (1) Bipolar disorder: Qualified Code: F31.64 - Bipolar disorder, current episode mixed, severe, with psychotic features Israel Easton MD February 21, 2017 14:37
[2017-02-21] MEDS: REMOVE OLD PATCH T-DERMAL SCH (21:00)
[2017-02-21] MEDS: clonazePAM 1 MG TAB PO SCH (21:19)
[2017-02-21 22:11] VITALS: BP 122/65; PULSE 83; RESP 20; TEMP 98.3; O2SAT 99
[2017-02-22 06:04] VITALS: BP 105/64; PULSE 52; RESP 18; TEMP 98.4; O2SAT 98
[2017-02-22] MEDS: buPROPion HCL 75 MG TAB PO SCH ×2 (08:19→12:15)
[2017-02-22] MEDS: DOCUSATE SODIUM 100 MG CAP PO SCH ×2 (08:19→21:19)
[2017-02-22] MEDS: carBAMazepine 200 MG TAB PO SCH ×2 (08:19→21:19)
[2017-02-22] MEDS: NICOTINE 21 MG/24 HR PATCH T-DERMAL SCH (09:00)
--- NOTE | 2017-02-22 14:42 | HHI.PYPN ---
Subjective Remarks Speaks rapidly but not pressured. Still has some flight of ideas but able to carry on a conversation. Review of Systems ROS Limitations: Clinical Condition Objective Alert: Yes [place]: Person, Place Mood: Anxious Affect: Labile Memory Intact: Comment (fair) Hallucinations: Auditory, Other (internal stimuli) Delusions: No Delusion Type: Paranoid Suicidal: Ideation (no suicidal ideation) Homicidal: Ideation (no homicidal ideation) Insight/Judgment Impaired Vitals/IOs Vital Signs Date Time Temp Pulse Resp B/P Pulse Ox O2 Delivery O2 Flow Rate FiO2 02/22/17 06:04 98.4 52 18 105/64 98 Assessment & Plan Problem List: (1) Bipolar disorder ICD Code: F31.9 Assessment & Plan Estimated LOS: 1 days plan discharge for tomorrow. Justification for Cont. Inpt. Have to arrange follow up. Request HC Surrog/Guard Advoc?: Yes Problem Qualifiers (1) Bipolar disorder: Qualified Code: F31.64 - Bipolar disorder, current episode mixed, severe, with psychotic features Israel Easton MD February 22, 2017 14:42
[2017-02-22 16:58] VITALS: BP 113/71; PULSE 80; RESP 18; TEMP 99.5; O2SAT 98
[2017-02-22] MEDS: REMOVE OLD PATCH T-DERMAL SCH (21:00)
[2017-02-22] MEDS: clonazePAM 1 MG TAB PO SCH (21:19)
[2017-02-22] MEDS: diphenhydrAMINE HCL 50 MG CAP PO PRN (21:20)
[2017-02-23 05:57] VITALS: BP 93/50; PULSE 72; RESP 16; TEMP 97.4; O2SAT 98
[2017-02-23] MEDS: carBAMazepine 200 MG TAB PO SCH ×2 (08:52→21:27)
[2017-02-23] MEDS: NICOTINE 21 MG/24 HR PATCH T-DERMAL SCH (08:54)
[2017-02-23] MEDS: buPROPion HCL 75 MG TAB PO SCH ×2 (08:56→12:29)
[2017-02-23] MEDS: DOCUSATE SODIUM 100 MG CAP PO SCH ×2 (09:00→21:00)
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
[2017-02-23 18:06] VITALS: BP 134/76; PULSE 84; RESP 16; TEMP 97.9; O2SAT 99
[2017-02-23] MEDS: REMOVE OLD PATCH T-DERMAL SCH (21:00)
[2017-02-23] MEDS: clonazePAM 1 MG TAB PO SCH (21:27)
[2017-02-24 06:25] VITALS: BP 94/55; PULSE 73; RESP 16; TEMP 97.8; O2SAT 97
[2017-02-24] MEDS: NICOTINE 21 MG/24 HR PATCH T-DERMAL SCH (08:27)
[2017-02-24] MEDS: carBAMazepine 200 MG TAB PO SCH ×2 (08:28→21:14)
[2017-02-24] MEDS: DOCUSATE SODIUM 100 MG CAP PO SCH ×2 (08:28→21:00)
[2017-02-24] MEDS: buPROPion HCL 75 MG TAB PO SCH ×2 (08:31→12:29)
[2017-02-24 20:22] VITALS: BP 125/77; PULSE 88; RESP 17; TEMP 97.7; O2SAT 99
[2017-02-24] MEDS: REMOVE OLD PATCH T-DERMAL SCH (21:00)
[2017-02-24] MEDS: clonazePAM 1 MG TAB PO SCH (21:14)
[2017-02-25 06:00] VITALS: BP 90/55; PULSE 82; RESP 18; TEMP 98.6; O2SAT 98
[2017-02-25] MEDS: buPROPion HCL 75 MG TAB PO SCH ×2 (08:00→12:00)
[2017-02-25] MEDS: carBAMazepine 200 MG TAB PO SCH (08:57)
[2017-02-25] MEDS: DOCUSATE SODIUM 100 MG CAP PO SCH (08:57)
[2017-02-25] MEDS: NICOTINE 21 MG/24 HR PATCH T-DERMAL SCH (08:57)
[2017-02-25] MEDS ORDERED: VENTAER INH (13:38)
[2017-02-25] MEDS ORDERED: CARB200T PO (13:38)
[2017-02-25] MEDS ORDERED: BUPR75TA PO (13:38)
[2017-02-25] MEDS ORDERED: CLON1 PO (13:38)
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
== END 2017-02-25 15:55 | disposition home or self-care (01) | DRG 885 ==
LOC: NEPD 01:41 → NEDA 13:54 → H270 16:20 → H260 02-19 13:50
PROVIDERS: ADMIT Psychiatry & Neurology Psychiatry; ATTEND Psychiatry & Neurology Psychiatry
DX: F31.5 Bipolar disorder, current episode depressed, severe, with psychotic features (principal); Z91.14 Patient's other noncompliance with medication regimen; I34.1 Nonrheumatic mitral (valve) prolapse; Z72.0 Tobacco use; Z87.11 Personal history of peptic ulcer disease
CPT/HCPCS: 80048; 80053; 80307; 81001; 84443; 85025; 85027; 86703; 99284; J1200; J1630; J2060; Q0163

== ENCOUNTER 2017-03-10 14:35 | Emergency (ER) | payer MEDICARE ==
[~2017-03-10] VITALS: Ht 167.6 cm; Wt 50.0 kg
[~2017-03-10 14:35] MED LIST changes: -AUGM875T PO; +BENZ1TAB PO; +BUPR75TA PO; +CARB200T PO; -CARB200T16 PO; +CLON1 PO; -DETR2TAB PO; -IBUP800T23 PO; -MACR100C PO; +PHEN-426 PO; +SAPH10SU3 SL; -TESS200C PO; +ZYPR15TA PO
[2017-03-10 14:37] VITALS: BP 122/73; PULSE 110; RESP 20; TEMP 97.4; O2SAT 98
--- NOTE | 2017-03-10 14:49 | PD ---
Physical Exam Time Seen by Provider: 14:41 Narrative 56yo F presents saying she wasn't suppose to be discharged from the psych [facility] and wants to be reevaluated. Denies SI or HI. Says she "bashed her head so hard" 3 days ago. Denies vomiting. Patient seen in triage. Awaiting bed placement. VS reviewed. Data Data Last Documented VS Vital Signs Date Time Temp Pulse Resp B/P Pulse Ox O2 Delivery O2 Flow Rate FiO2 03/10/17 14:37 97.4 110 20 122/73 98 MDM Supervised Visit with BRIEN: Hollie Duvall March 10, 2017 14:48
--- NOTE | 2017-03-10 15:53 | PD ---
HPI Chief Complaint: Psychiatric Symptoms Time Seen by Provider: 15:50 Travel History International Travel<30 days: No Contact w/Intl Traveler<30days: No Traveled to known affect area: No History of Present Illness HPI Patient comes in requesting psychiatric evaluation. Patient states that she's had left from the hospital AGAINST MEDICAL ADVICE when she should've stayed longer. Patient states she feels anxious around her mother is unable stay at her house. Patient states she's been staying at a "fake hotel". Patient denies any homicidal or suicidal ideations. Patient states she's been taking her Tegretol and Wellbutrin as prescribed. Patient denies any medical concerns at this time. Denies any chest pain, shortness of breath, fevers, nausea, vomiting, abdominal pain, or headaches. 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) Bipolar Disorder: Yes Anxiety: Yes Depression: Yes Cardiovascular Problems: Yes (MITRAL VALVE PROLAPSE) Diminished Hearing: No Endocrine: No Gastrointestinal Disorders: Yes (PEPTIC ULCER DISEASE) Genitourinary: No Immune Disorder: No Musculoskeletal: No Neurologic: Yes Psychiatric: Yes Respiratory: No Schizophrenia: Yes Seizures: Yes Ulcer: Yes Tetanus Vaccination: < 5 Years Influenza Vaccination: Yes ?: Not Menopausal: Yes : 1 Para: 0 Miscarriage: 0 : 1 Past Surgical History Abdominal Surgery: Yes Appendectomy: Yes Other Surgery: Yes (BREAST IMPLANTS PLACED AND LATER REMOVED) Social History Alcohol Use: No Tobacco Use: Yes (1/2 ppd) Substance Use: No Allergies-Medications (Allergen,Severity, Reaction): Coded Allergies: Erythromycin (Verified Allergy, Severe, 02/12/17) Bactrim (Verified Allergy, Intermediate, Nausea/Vomiting, blurred vision, 02/12/17) Flagyl (Verified Allergy, Mild, Hives, 02/12/17) [place] (Verified Allergy, Unknown, Rash, 02/12/17) Per patient, she gets a rash from [place]. Reported Meds & Prescriptions Reported Meds & Active Scripts Active Klonopin (Clonazepam) 1 Mg Tab 2 Mg PO HS Carbamazepine 200 Mg Tab 200 Mg PO BID Bupropion HCl 75 Mg Tab 150 Mg PO DAILY@08,12 30 Days Ventolin Hfa 18 GM Inh (Albuterol Sulfate) 90 Mcg/Act Aer 2 Puff INH Q4H PRN 30 Days Cleocin (Clindamycin HCl) 150 Mg Cap 300 Mg PO Q8 Zovirax 800 Mg Tab (Acyclovir) 800 Mg Tab 800 Mg PO QID Ventolin Hfa (Albuterol Sulfate) 18 Gm Aero 2 Puff INH Q4HPRN * SHAKE WELL BEFORE USE * Reported Zyprexa (Olanzapine) 15 Mg Tab 15 Mg PO HS Saphris (Asenapine) 10 Mg Subl 10 Mg SL HS Benztropine (Benztropine Mesylate) 1 Mg Tab 1 Mg PO HS Phenazopyridine (Phenazopyridine HCl) 100 Mg Tab 100 Mg PO Q8H PRN Wellbutrin (Bupropion HCl) 100 Mg Tab 150 Mg PO AM-NOON Klonopin (Clonazepam) 2 Mg Tab 1.5 Mg PO HS Review of Systems Except as stated in HPI: all other systems reviewed are Neg Physical Exam Narrative GENERAL: Well-developed, under nourished, in no acute distress, and non-ill appearing. SKIN: Focused skin assessment warm and dry. HEAD: Atraumatic. Normocephalic. EYES: Pupils equal and round. EOMI. No scleral icterus. No injection or drainage. ENT: No nasal bleeding or discharge. Mucous membranes pink and moist. NECK: Trachea midline. Supple. No nuclear rigidity. CARDIOVASCULAR: Regular rate and rhythm. No murmur appreciated. RESPIRATORY: No accessory muscle use. No respiratory distress. Clear to auscultation. Breath sounds equal bilaterally. MUSCULOSKELETAL: No obvious deformities. No clubbing. No cyanosis. No edema. Full range of motion. NEUROLOGICAL: Awake and alert. No obvious cranial nerve deficits. Motor grossly within normal limits. Normal speech. PSYCHIATRIC: Speaking rapidly. Seems paranoid. Data Data Last Documented VS Vital Signs Date Time Temp Pulse Resp B/P Pulse Ox O2 Delivery O2 Flow Rate FiO2 03/10/17 14:37 97.4 110 20 122/73 98 Orders Complete Blood Count With Diff (03/10/17 15:45) Comprehensive Metabolic Panel (03/10/17 15:45) Psych Screen (03/10/17 15:45) Drug Screen, Random Urine (03/10/17 15:45) Alcohol (Ethanol) (03/10/17 15:45) Salicylates (Aspirin) (03/10/17 15:45) Tylenol (Acetaminophen) (03/10/17 15:45) Labs Laboratory Tests Test 03/10/17 03/10/17 16:20 16:30 White Blood Count 6.1 TH/MM3 Red Blood Count 3.82 MIL/MM3 Hemoglobin 13.0 GM/DL Hematocrit 37.9 % Mean Corpuscular Volume 99.4 FL Mean Corpuscular Hemoglobin 34.2 PG Mean Corpuscular Hemoglobin 34.4 % Concent Red Cell Distribution Width 13.7 % Platelet Count 287 TH/MM3 Mean Platelet Volume 8.1 FL Neutrophils (%) (Auto) % Lymphocytes (%) (Auto) % Monocytes (%) (Auto) % Eosinophils (%) (Auto) % Basophils (%) (Auto) % Neutrophils # (Auto) TH/MM3 Lymphocytes # (Auto) TH/MM3 Monocytes # (Auto) TH/MM3 Eosinophils # (Auto) TH/MM3 Basophils # (Auto) TH/MM3 CBC Comment AUTO DIFF Sodium Level 137 MEQ/L Potassium Level 4.3 MEQ/L Chloride Level 101 MEQ/L Carbon Dioxide Level 29.5 MEQ/L Anion Gap 7 MEQ/L Blood Urea Nitrogen 4 MG/DL Creatinine 0.80 MG/DL Estimat Glomerular Filtration 74 ML/MIN Rate Random Glucose 105 MG/DL Calcium Level 9.1 MG/DL Total Bilirubin 0.2 MG/DL Aspartate Amino Transf 9 U/L (AST/SGOT) Alanine Aminotransferase 14 U/L (ALT/SGPT) Alkaline Phosphatase 108 U/L Total Protein 7.0 GM/DL Albumin 3.9 GM/DL Salicylates Level 3.0 MG/DL Acetaminophen Level LESS THAN 2.0 MCG/ML Ethyl Alcohol Level LESS THAN 3 MG/DL Urine Opiates Screen NEG Urine Barbiturates Screen NEG Urine Amphetamines Screen NEG Urine Benzodiazepines Screen NEG Urine Cocaine Screen NEG Urine Cannabinoids Screen NEG MDM Medical Decision Making Medical Screen Exam Complete: Yes Emergency Medical Condition: Yes Differential Diagnosis Bipolar, psychosis, schizoaffective, other Narrative Course Patient was seen and examined. Labs were obtained and reviewed with exception urine drug screen is currently pending. Patient medically cleared for further treatment and evaluation by psych. Final disposition per psych. Diagnosis Primary Impression: Medical clearance for psychiatric admission Condition: Stable José Luis Connelly March 10, 2017 15:53
[2017-03-10 16:53] LABS: AMPHETAMINE, URINE NEG (NEG); BARBITURATES, URINE NEG (NEG); COCAINE, URINE NEG (NEG)
[2017-03-10 17:03] LABS: ALT (GPT) 14 U/L (10-53); ANION GAP 7 MEQ/L (5-15); AST (GOT) 9 U/L (15-37); BICARBONATE 29.5 MEQ/L (21.0-32.0); BLOOD UREA NITROGEN 4 MG/DL (7-18); CHLORIDE 101 MEQ/L (98-107); GLOMERULAR FILTRATION RATE 74 ML/MIN (>89); POTASSIUM 4.3 MEQ/L (3.5-5.1); SODIUM (NA) 137 MEQ/L (136-145)
[2017-03-10 17:05] LABS: HEMATOCRIT 37.9 % (35.0-46.0); MEAN CELL VOLUME 99.4 FL (80.0-100.0); MEAN CORPUSCULAR HEMOGLOBIN 34.2 PG (27.0-34.0); MEAN CORPUSCULAR HGB CONC 34.4 % (32.0-36.0); PLATELET COUNT 287 TH/MM3 (150-450); RED BLOOD COUNT 3.82 MIL/MM3 (4.00-5.30); RED CELL DISTRIBUTION WIDTH 13.7 % (11.6-17.2); WHITE BLOOD COUNT 6.1 TH/MM3 (4.0-11.0)
[2017-03-10 17:06] LABS: ACETAMINOPHEN LESS THAN 2.0 MCG/ML (10.0-30.0); ALKALINE PHOSPHATASE 108 U/L (45-117); TOTAL BILIRUBIN ADULT 0.2 MG/DL (0.2-1.0)
[2017-03-10 17:13] LABS: HEMO FLAGS AUTO DIFF
[2017-03-10 17:45] LABS: EOSINOPHILS 2 % (0-4); NEUTROPHIL # MANUAL DIFF 4.9 TH/MM3 (1.8-7.7); POLYS (SEG NEUTROPHILS) 80 % (16-70); WBC DIFF SAMPLE 100
[2017-03-10 17:46] LABS: OVALOCYTES 2+ (NORMAL); PLATELET ESTIMATE SMEAR NORMAL (NORMAL); PLATELET MORPHOLOGY NORMAL (NORMAL); SCAN/DIFF FINAL DIFF MANUAL; SPHEROCYTES 1+ (NORMAL)
[2017-03-10 21:45] VITALS: BP 121/77; PULSE 88; RESP 16; O2SAT 98
[2017-03-11 08:24] VITALS: BP 123/75; PULSE 72; RESP 16; TEMP 98; O2SAT 97
--- NOTE | 2017-03-11 12:09 | PD ---
History of Present Illness Chief Complaint: Psychiatric Symptoms Time Seen by Provider: 11:00 Travel History International Travel<30 Days: No Contact w/Intl Traveler<30days: No Known affected area: No Legal Status Legal Status: Voluntary History of Present Illness: 56-year-old female with long history of bipolar disorder. Patient is well known to this position and recently treated her on inpatient psychiatry. At this time the patient is demonstrating signs of hypomania. She is tangential, circumstantial and somewhat rapid in her thinking and speaking. However, she expresses no gabby delusional thinking or hallucinations. She is certainly not suicidal or homicidal. She states that she has money in the bank and she is going to move into a motel room where she has resided previously. She does not want to be hospitalized and does not appear to meet Bernard act criteria. This case was discussed with Tamanna, the charge nurse for the emergency department and patient will be released. The patient states that she has been compliant with her medications and she is willing to follow up with [facility]. She also agrees to return if she is unable to care for herself or her symptoms become worse. 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) Bipolar Disorder: Yes Anxiety: Yes Depression: Yes Cardiovascular Problems: Yes (MITRAL VALVE PROLAPSE) Diminished Hearing: No Endocrine: No Gastrointestinal Disorders: Yes (PEPTIC ULCER DISEASE) Genitourinary: No Immune Disorder: No Musculoskeletal: No Neurologic: Yes Psychiatric: Yes Respiratory: No Schizophrenia: Yes Seizures: Yes Ulcer: Yes Tetanus Vaccination: < 5 Years Influenza Vaccination: Yes ?: Not Menopausal: Yes : 1 Para: 0 Miscarriage: 0 : 1 Past Surgical History Abdominal Surgery: Yes Appendectomy: Yes Other Surgery: Yes (BREAST IMPLANTS PLACED AND LATER REMOVED) Psychiatric History Psychiatric History Hx Psychiatric Treatment: Patient has a very long psychiatric history with this facility which dates back 2005. She currently is receiving outpatient treatment with [facility]. Patient has had one [facility] hospital admission following her 2008 admission at this hospital. History of Inpatient Treatment: Yes Social History Hx Alcohol Use: No Hx Tobacco Use: Yes (1/2 ppd) Hx Substance Use: No Substance Use Type: Nicotine/Cigarettes, Benzos (Valium,Xanax) Other Substances Used: Prescribed Klonopin. Hx of Substance Use Treatment: No Allergies-Medications (Allergen,Severity, Reaction): Coded Allergies: Erythromycin (Verified Allergy, Severe, 02/12/17) Bactrim (Verified Allergy, Intermediate, Nausea/Vomiting, blurred vision, 02/12/17) Flagyl (Verified Allergy, Mild, Hives, 02/12/17) [place] (Verified Allergy, Unknown, Rash, 02/12/17) Per patient, she gets a rash from [place]. Reported Meds & Prescriptions Reported Meds & Active Scripts Active Klonopin (Clonazepam) 1 Mg Tab 2 Mg PO HS Carbamazepine 200 Mg Tab 200 Mg PO BID Bupropion HCl 75 Mg Tab 150 Mg PO DAILY@08,12 30 Days Ventolin Hfa 18 GM Inh (Albuterol Sulfate) 90 Mcg/Act Aer 2 Puff INH Q4H PRN 30 Days Cleocin (Clindamycin HCl) 150 Mg Cap 300 Mg PO Q8 Zovirax 800 Mg Tab (Acyclovir) 800 Mg Tab 800 Mg PO QID Ventolin Hfa (Albuterol Sulfate) 18 Gm Aero 2 Puff INH Q4HPRN * SHAKE WELL BEFORE USE * Reported Zyprexa (Olanzapine) 15 Mg Tab 15 Mg PO HS Saphris (Asenapine) 10 Mg Subl 10 Mg SL HS Benztropine (Benztropine Mesylate) 1 Mg Tab 1 Mg PO HS Phenazopyridine (Phenazopyridine HCl) 100 Mg Tab 100 Mg PO Q8H PRN Wellbutrin (Bupropion HCl) 100 Mg Tab 150 Mg PO AM-NOON Klonopin (Clonazepam) 2 Mg Tab 1.5 Mg PO HS Review of Systems Except as stated in HPI: all other systems reviewed are Neg Exam Alert: Yes [place]: Person, Place, Date, Situation Mood: Happy Affect: Euthymic Speech: Clear Eye Contact: Normal Memory Intact: Immediate, Recent, Remote Insight/Judgement Adequate at this time. MDM Medical Decision Making Medical Record Reviewed: Yes Assessment/Plan This physician continues to see signs of the patient's long-standing bipolar disorder. However the patient is here voluntarily and wants to be able to leave. She has an appropriate plan to care for herself and 100s of dollars in the bank. She has been compliant with her medications, according to self- report. She exhibits no suicidal or homicidal ideation, plan or intent. She does not exhibit gabby symptoms of psychosis. She does not meet criteria therefore for Bernard act or inpatient psychiatric hospitalization against her will. Orders Complete Blood Count With Diff (03/10/17 15:45) Comprehensive Metabolic Panel (03/10/17 15:45) Psych Screen (03/10/17 15:45) Drug Screen, Random Urine (03/10/17 15:45) Alcohol (Ethanol) (03/10/17 15:45) Salicylates (Aspirin) (03/10/17 15:45) Tylenol (Acetaminophen) (03/10/17 15:45) Diet Regular Basic (03/10/17 Dinner) Diet Regular Basic (03/11/17 Breakfast) Results Vital Signs Date Time Temp Pulse Resp B/P Pulse Ox O2 Delivery O2 Flow Rate FiO2 03/11/17 08:24 98.0 72 16 123/75 97 Room Air 03/10/17 21:45 88 16 121/77 98 Room Air 03/10/17 14:37 97.4 110 20 122/73 98 Laboratory Tests Test 03/10/17 03/10/17 16:20 16:30 White Blood Count 6.1 Red Blood Count 3.82 Hemoglobin 13.0 Hematocrit 37.9 Mean Corpuscular Volume 99.4 Mean Corpuscular Hemoglobin 34.2 Mean Corpuscular Hemoglobin 34.4 Concent Red Cell Distribution Width 13.7 Platelet Count 287 Mean Platelet Volume 8.1 Neutrophils (%) (Auto) Lymphocytes (%) (Auto) Monocytes (%) (Auto) Eosinophils (%) (Auto) Basophils (%) (Auto) Neutrophils # (Auto) Lymphocytes # (Auto) Monocytes # (Auto) Eosinophils # (Auto) Basophils # (Auto) CBC Comment AUTO DIFF Differential Total Cells 100 Counted Neutrophils % (Manual) 80 Lymphocytes % 11 Monocytes % 7 Eosinophils % 2 Neutrophils # (Manual) 4.9 Differential Comment FINAL DIFF MANUAL Platelet Estimate NORMAL Platelet Morphology Comment NORMAL Spherocytes 1+ Ovalocytes 2+ Sodium Level 137 Potassium Level 4.3 Chloride Level 101 Carbon Dioxide Level 29.5 Anion Gap 7 Blood Urea Nitrogen 4 Creatinine 0.80 Estimat Glomerular Filtration 74 Rate Random Glucose 105 Calcium Level 9.1 Total Bilirubin 0.2 Aspartate Amino Transf 9 (AST/SGOT) Alanine Aminotransferase 14 (ALT/SGPT) Alkaline Phosphatase 108 Total Protein 7.0 Albumin 3.9 Salicylates Level 3.0 Acetaminophen Level LESS THAN 2.0 Ethyl Alcohol Level LESS THAN 3 Urine Opiates Screen NEG Urine Barbiturates Screen NEG Urine Amphetamines Screen NEG Urine Benzodiazepines Screen NEG Urine Cocaine Screen NEG Urine Cannabinoids Screen NEG Diagnosis Primary Impression: Bipolar disorder Departure Forms: Tests/Procedures Patient Instructions: General Instructions Condition: Israel Valentine MD March 11, 2017 12:09
== END 2017-03-11 11:25 | disposition home or self-care (01) ==
LOC: NEPD 14:35
DX: F31.9 Bipolar disorder, unspecified (principal); Z79.899 Other long term (current) drug therapy
CPT/HCPCS: 80053; 80307; 85007; 85027; 99283

== ENCOUNTER 2017-03-16 15:00 | Inpatient (IN) | payer MEDICARE, OTHER ==
[2017-03-17] MEDS ORDERED: CIPR250T2 PO (12:37)
[2017-03-17] MEDS ORDERED: ALBUTEROL SULFATE 90 MCG/ACT HFA 18 GM INHALER INH PRN (13:15)
--- NOTE | 2017-03-17 13:16 | HHI.HP ---
Provisional Diagnosis Admission Date March 16, 2017 at 15:00 [place] I. Bipolar disorder type I, recent episode manic with psychotic features [place] II. Unspecified personality disorder [place] III. Urinary tract infection, sepsis [place] IV. Poor social and family support [place] V. 40 Certification of Person's Competence To Provide Express and Informed Consent I have personally examined Cheyenne Mcdowell , a person being served at [facility] on, March 17, 2017 13:14. Express and informed consent means consent voluntarily given in writing, by a competent person, after sufficient explanation and disclosure of the subject matter involved to enable the person to make a knowing and willful decision without any element of force, fraud, deceit, duress, or other form of constraint or coercion. This person is 18 years of age or older, is not now known to be incompetent to consent to treatment with a guardian advocate, and does not have a health care surrogate or proxy currently making medical treatment decisions. I have found this person to be one of the following: [] Competent to provide express and informed consent, as defined above, for voluntary admission to this facility and is competent to provide express and informed consent for treatment. He/she has the consistent capacity to make well reasoned, willful, and knowing decisions concerning his or her medical or mental health treatment. The person fully and consistently understands the purpose of the admission for examination/placement and is fully capable of personally exercising all rights [place] Incompetent to provide express and informed consent to voluntary admission, and this is incompetent to provide express and informed consent to treatment. The person must be transferred to involuntary status and a petition for a guardian advocate filed with the Circuit Court. [X] Refusing to provide express and informed consent to voluntary admission but is competent to provide express and informed consent for treatment. The person must be discharged or transferred to involuntary status. Form shall be completed within 24 hours of a person's arrival at the receiving facility and filed in the clinical record of each person: 1. Admitted on a voluntary basis 2. Permitted to provide express and informed consent to his/her own treatment 3. Allowed to transfer from involuntary to voluntary status 4. Prior to permitting a person to consent to his or her own treatment after having been previously found incompetent to consent to treatment. History of Present Illness Capacity: Has Capacity HPI 03/17/2017 The patient is a 56-year-old female with history of schizoaffective disorder, bipolar disorder. She is brought here under a Bernard act after she was found in a car with confusion, disorganized and bizarre behavior. Patient does not know that she is in a hospital, seems to be very confused. She is not sure why she is here. She states she got lost on the highway. She denies pain , fevers, urinary problems. No dysuria. She states "Jadon is not making sense to me." However she does not know who Jadon is. She states "Dr. Easton knows what medications I am on." She is unsure of the medications she is on. Patient is poorly cooperative with the psychiatric evaluation, actually she refuses to speak with me, stating that her doctors Dr. Easton. On in spite of multiple redirections, patient refused to talk. Review of documentation I see the patient is actually diagnosed with: Urinary tract infection. Plan: Urine culture pending. Continue 1 g ceftriaxone daily, Sepsis, Acute kidney injury. She is in current psychotropics: Wellbutrin 150 mg, Klonopin 2 mg by mouth at bedtime, olanzapine 50 mg by mouth at bedtime. 03/17/2017 on psychiatric evaluation today patient is found sleeping, easily arousable, once awakened patient was irritable, oppositional, verbally hostile, patient says that she is expected with me "I want to see Dr. Easton, get out of my way ". With some de-escalation techniques patient was able to calm down. Patient doesn't remember the reason she is in the hospital. She says that she has been living in the street, and in the last days she has been getting confused, patient says that she has been having conflicts in her mind "because my mother says that she is the [place], but she doesn't know the now I am the [place], and I am very beautiful". Patient shows me her nails are very dirty is stating "I just made my nails yesterday in a very extensive beauty salon". Patient is very tangential, disorganized, however with redirection she can answer appropriately to questions. She is oriented 3. No attention deficit present. She seems to be internally preoccupied, but no delusions or psychotic observed at this moment. She is also very labile, crying and laughing alternatively very often. Review of Systems Constitutional: DENIES: Diaphoretic episodes, Fatigue, Fever, Weight gain, Weight loss, Chills, Dizziness, Change in appetite, Night Sweats Endocrine: DENIES: Abnorml menstrual pattern, Heat/cold intolerance, Polydipsia , Polyuria, Polyphagia Eyes: DENIES: Blurred vision, Diplopia, Eye inflammation, Eye pain, Vision loss , Photosensitivity, Double Vision Ears, nose, mouth, throat: DENIES: Tinnitus, Hearing loss, Vertigo, Nasal discharge, Oral lesions, Throat pain, Hoarseness, Ear Pain, Running Nose, Epistaxis, Sinus Pain, Toothache, Odynophagia Respiratory: DENIES: Apneas, Cough, Snoring, Wheezing, Hemoptysis, Sputum production, Shortness of breath Cardiovascular: DENIES: Chest pain, Palpitations, Syncope, Dyspnea on Exertion , PND, Lower Extremity Edema, Orthopnea, Claudication Gastrointestinal: DENIES: Abdominal pain, Black stools, Bloody stools, Constipation, Diarrhea, Nausea, Vomiting, Difficulty Swallowing, Anorexia Genitourinary: DENIES: Abnormal vaginal bleeding, Dysmenorrhea, Dyspareunia, Sexual dysfunction, Urinary frequency, Urinary incontinence, Urgency, Hematuria , Dysuria, Nocturia, Vaginal discharge Musculoskeletal: DENIES: Joint pain, Muscle aches, Stiffness, Joint Swelling, Back pain, Neck pain Integumentary: DENIES: Abnormal pigmentation, Pruritus, Rash, Nail changes, Breast masses, Breast skin changes, Nipple discharge Hematologic/lymphatic: DENIES: Bruising, Lymphadenopathy Immunologic/allergic: DENIES: Eczema, Urticaria Neurologic: DENIES: Abnormal gait, Headache, Localized weakness, Paresthesias, Seizures, Speech Problems, Tremor, Poor Balance Psychiatric: DENIES: Anxiety, Confusion, Mood changes, Depression, Hallucinations, Agitation, Suicidal Ideation, Homicidal Ideation, Delusions Past Psych History Violence risk - self (6 mos) Patient has elevated risk of harm to self Substance Abuse History Drugs/Alcohol past 12 months Patient denies the use of drugs and alcohol Past Family Social History Coded Allergies: Erythromycin (Verified Allergy, Severe, 02/12/17) Bactrim (Verified Allergy, Intermediate, Nausea/Vomiting, blurred vision, 02/12/17) Flagyl (Verified Allergy, Mild, Hives, 02/12/17) [place] (Verified Allergy, Unknown, Rash, 02/12/17) Per patient, she gets a rash from [place]. Active Scripts Ciprofloxacin 250 Mg Qos419 Mg PO BID #4 TAB Ref 0 Prov:Edgar Thompson MD R2 03/17/17 Clonazepam (Klonopin)1 Mg Tab2 Mg PO HS #30 TAB Prov:Israel Easton MD 02/25/17 Carbamazepine 200 Mg [id number] Mg PO BID #60 TAB Prov:Israel Easton MD 02/25/17 Bupropion HCl 75 Mg Utj102 Mg PO DAILY@08,12 30 Days Prov:Israel Easton MD 02/25/17 Albuterol 18 GM Inh (Ventolin Hfa 18 GM Inh)90 Mcg/Act Aer2 Puff INH Q4H PRN ( SHORTNESS OF BREATH) 30 Days Prov:Israel Easton MD 02/25/17 Reported Medications Olanzapine (Zyprexa)15 Mg Tab15 Mg PO HS #30 TAB Ref 0 02/12/17 Asenapine (Saphris)10 Mg Subl10 Mg SL HS #60 TAB.SL Ref 0 02/12/17 Benztropine 1 Mg Tab1 Mg PO HS #30 TAB Ref 0 02/12/17 Phenazopyridine 100 Mg [id number] Mg PO Q8H PRN (DYSURIA) Ref 0 02/12/17 Discontinued Reported Medications Bupropion Hcl (Wellbutrin)100 Mg Qcy499 Mg PO AM-NOON 07/14/11 Clonazepam (Klonopin)2 Mg Tab1.5 Mg PO HS 07/14/11 Discontinued Scripts Clindamycin Hcl (Cleocin)150 Mg [id number] Mg PO Q8 #21 CAP Ref 1 Prov:Mavis Mead MD 09/01/15 Acyclovir (Zovirax 800 Mg Tab)800 Mg Box364 Mg PO QID #40 Prov:ANASTACIO RAYMUNDO MD 11/17/12 Albuterol Sulfate (Ventolin Hfa)18 Gm Aero2 Puff INH Q4HPRN #1 * SHAKE WELL BEFORE USE * Prov:CORNELIUS TREVINO MD 10/12/12 Current Medications Medications (Trade) Dose Ordered Sig/Addis Route Start Time Stop Time Status Last Admin (Proair Hfa Inh) 2 puff Q4H PRN INH 5/25/17 13:15 UNV (Wellbutrin) 150 mg DAILY@08,12 PO 03/18/17 08:00 UNV (TEGretol) 200 mg BID PO 03/17/17 13:15 UNV (Cipro) 250 mg BID PO 03/17/17 13:15 UNV (KlonoPIN) 2 mg HS PO 03/17/17 21:00 UNV (ZyPREXA) 15 mg HS PO 03/17/17 21:00 UNV Family History She denies family psychiatric history Social History Patient self-report homeless, no family or social support, single, Mental Status Examination Appearance woman, disheveled, malodorous, with very poor hygiene, at the beginning irritable and oppositional, but then became calmer and more cooperative Speech: Rapid, Incoherent Orientation: x3 Memory: Unremarkable Thought Process: Loose Association, Tangential Thought Content: Bizarre thinking, Paranoid Hallucination Type: None Suicidal Ideation: No Previous Suicide Attempts: No Homicidal Ideation: No Previous Homicide Attempts: No Judgment: Poor Affect: Irritable Mood: Irritable Assessment & Plan Problem List: (1) Bipolar disorder Assessment & Plan: Patient continues to be manic-like, very irritable, labile, verbally hostile, tangential and disorganized, with rapid speech. Patient needs psychiatric hospitalization for stabilization, will consult hospitalist to continue the treatment of sepsis and urinary tract infection, we'll consider psychiatric for second opinion. We'll continue with carbamazepine 200 mg twice a day, olanzapine 15 mg, clonazepam 0.5 mg twice a day. Extensive support, motivation psycho education provided. health outreach worker intervention for psychosocial assessment, collateral information, start discharge planning, group and individual psychotherapy. Appropriate safety measure will be taken. ICD Code: F31.9 Assessment & Plan Estimated LOS: days Problem Qualifiers (1) Bipolar disorder: Desean Catalan MD March 17, 2017 13:15
[2017-03-17] MEDS: carBAMazepine 200 MG TAB PO SCH ×2 (14:00→20:04)
[2017-03-17] MEDS: CIPROFLOXACIN 250 MG TAB PO SCH ×2 (14:00→20:04)
[2017-03-17 17:27] VITALS: BP 107/53; PULSE 100; RESP 16; TEMP 98.1; O2SAT 99
[2017-03-17] MEDS: clonazePAM 1 MG TAB PO SCH (20:04)
[2017-03-17] MEDS: CARBOXYMETHYLCELL SOD 0.5% OPTH SOLN 15 ML BTL EACH EYE PRN (21:56)
[2017-03-18] MEDS: CARBOXYMETHYLCELL SOD 0.5% OPTH SOLN 15 ML BTL EACH EYE PRN ×3 (05:59→20:15)
[2017-03-18 06:00] VITALS: BP 107/56; PULSE 83; RESP 18; TEMP 97.5; O2SAT 98
[2017-03-18] MEDS: CIPROFLOXACIN 250 MG TAB PO SCH ×2 (08:28→21:50)
[2017-03-18] MEDS: carBAMazepine 200 MG TAB PO SCH ×2 (08:28→21:51)
[2017-03-18] MEDS: buPROPion HCL 75 MG TAB PO SCH ×2 (08:28→12:00)
--- NOTE | 2017-03-18 12:05 | PD.CONS ---
Provisional Diagnosis Admission Date March 16, 2017 at 15:00 [place]. 1. Bipolar disorder, currently manic (possibly mixed), severe with psychotic features [place]. Deferred [place]. GAF is 30 presently History of Present Illness Service Psychiatry Consult Requested By Dr. Catalan Reason for Consult Second opinion for involuntary psychiatric hospitalization Primary Care Physician Unknown HPI From Dr. Mata's H&P: 03/17/2017 The patient is a 56-year-old female with history of schizoaffective disorder, bipolar disorder. She is brought here under a Bernard act after she was found in a car with confusion, disorganized and bizarre behavior. Patient does not know that she is in a hospital, seems to be very confused. She is not sure why she is here. She states she got lost on the highway. She denies pain , fevers, urinary problems. No dysuria. She states "Jadon is not making sense to me." However she does not know who Jadon is. She states "Dr. Easton knows what medications I am on." She is unsure of the medications she is on. Patient is poorly cooperative with the psychiatric evaluation, actually she refuses to speak with me, stating that her doctors Dr. Easton. On in spite of multiple redirections, patient refused to talk. Review of documentation I see the patient is actually diagnosed with: Urinary tract infection. Plan: Urine culture pending. Continue 1 g ceftriaxone daily, Sepsis, Acute kidney injury. She is in current psychotropics: Wellbutrin 150 mg, Klonopin 2 mg by mouth at bedtime, olanzapine 50 mg by mouth at bedtime. 03/17/2017 on psychiatric evaluation today patient is found sleeping, easily arousable, once awakened patient was irritable, oppositional, verbally hostile, patient says that she is expected with me "I want to see Dr. Easton, get out of my way ". With some de-escalation techniques patient was able to calm down. Patient doesn't remember the reason she is in the hospital. She says that she has been living in the street, and in the last days she has been getting confused, patient says that she has been having conflicts in her mind "because my mother says that she is the [place]wey, but she doesn't know the now I am the Dewey, and I am very beautiful". Patient shows me her nails are very dirty is stating "I just made my nails yesterday in a very extensive beauty salon". Patient is very tangential, disorganized, however with redirection she can answer appropriately to questions. She is oriented 3. No attention deficit present. She seems to be internally preoccupied, but no delusions or psychotic observed at this moment. She is also very labile, crying and laughing alternatively very often. On my examination today: Patient seen and examined. Chart reviewed. Patient is known to me from her recent inpatient hospitalization in January. Case discussed with nurse on the medical psychiatric unit. On my examination today, the patient presents as irritable and disorganized. Speech is fairly rambling and grows increasingly disjointed as the conversation progresses. Patient continues to fixate on Dr. Easton and insists that she is supposed to be transferred to the unit he is working on today. She tells me that the last thing she remembers she was trying to drive to [place], and I do see from the notes that the patient was discovered in her car. Patient appears somewhat internally preoccupied. She denies SI/HI but seems unreliable to contract for safety. She is unable to tolerate extended interview and eventually refuses to answer any more questions. Patient refuses to provide any interval past psychiatric, family, chemical dependency or social history saying that she does not want to talk about any of this now. Review of Systems ROS Limitations: Psychotic, Poor Historian Other Mental state limits ROS Past Family Social History Coded Allergies: Erythromycin (Verified Allergy, Severe, 02/12/17) Bactrim (Verified Allergy, Intermediate, Nausea/Vomiting, blurred vision, 02/12/17) Flagyl (Verified Allergy, Mild, Hives, 02/12/17) [place] (Verified Allergy, Unknown, Rash, 02/12/17) Per patient, she gets a rash from [place]. Past Medical History See EMR Active Scripts Ciprofloxacin 250 Mg Uoz035 Mg PO BID #4 TAB Ref 0 Prov:Edgar Thompson MD R2 03/17/17 Clonazepam (Klonopin)1 Mg Tab2 Mg PO HS #30 TAB Prov:Israel Easton MD 02/25/17 Carbamazepine 200 Mg [id number] Mg PO BID #60 TAB Prov:Israel Easton MD 02/25/17 Bupropion HCl 75 Mg Eir028 Mg PO DAILY@08,12 30 Days Prov:Israel Easton MD 02/25/17 Albuterol 18 GM Inh (Ventolin Hfa 18 GM Inh)90 Mcg/Act Aer2 Puff INH Q4H PRN ( SHORTNESS OF BREATH) 30 Days Prov:Israel Easton MD 02/25/17 Reported Medications Olanzapine (Zyprexa)15 Mg Tab15 Mg PO HS #30 TAB Ref 0 02/12/17 Asenapine (Saphris)10 Mg Subl10 Mg SL HS #60 TAB.SL Ref 0 02/12/17 Benztropine 1 Mg Tab1 Mg PO HS #30 TAB Ref 0 02/12/17 Phenazopyridine 100 Mg Kro457 Mg PO Q8H PRN (DYSURIA) Ref 0 02/12/17 Discontinued Reported Medications Bupropion Hcl (Wellbutrin)100 Mg Rwk027 Mg PO AM-NOON 07/14/11 Clonazepam (Klonopin)2 Mg Tab1.5 Mg PO HS 07/14/11 Discontinued Scripts Clindamycin Hcl (Cleocin)150 Mg Okr920 Mg PO Q8 #21 CAP Ref 1 Prov:Mavis Mead MD 09/01/15 Acyclovir (Zovirax 800 Mg Tab)800 Mg [id number] Mg PO QID #40 Prov:ANASTACIO RAYMUNDO MD 11/17/12 Albuterol Sulfate (Ventolin Hfa)18 Gm Aero2 Puff INH Q4HPRN #1 * SHAKE WELL BEFORE USE * Prov:CORNELIUS TREVINO MD 10/12/12 Current Medications Medications (Trade) Dose Ordered Sig/Addis Route Start Time Stop Time Status Last Admin (Ventolin Hfa Inh) 2 puff Q4H PRN INH 03/17/17 13:15 (Wellbutrin) 150 mg DAILY@08,12 PO 03/18/17 08:00 03/18/17 08:28 (TEGretol) 200 mg BID PO 03/17/17 14:00 03/18/17 08:28 (Cipro) 250 mg BID PO 03/17/17 14:00 03/18/17 08:28 (KlonoPIN) 2 mg HS PO 03/17/17 21:00 03/17/17 20:04 (ZyPREXA) 15 mg HS PO 03/17/17 21:00 03/17/17 20:04 (Refresh Tears 0.5% Opth Soln) 1 drop Q8HR PRN EACH EYE 03/17/17 13:45 03/18/17 08:27 Family History See above Social History See above Patient's Strengths (min. 2) In monitored setting. Verbally fluent. Physical Exam Physical examination completed by ED provider. On my examination today, the patient appears to be in no acute physical distress. No motor abnormalities noted. Laboratories and vitals signs reviewed: Vital Signs Vital Signs Date Time Temp Pulse Resp B/P Pulse Ox O2 Delivery O2 Flow Rate FiO2 03/18/17 06:00 97.5 83 18 107/56 98 I/O 03/17/17 03/17/17 03/18/17 08:00 16:00 00:00 Intake Total 240 ml 360 ml Balance 240 ml 360 ml Lab Results Item Value Date Time White Blood Count 7.5 TH/MM3 # 03/17/17 0500 Hemoglobin 11.8 GM/DL # 03/17/17 0500 Platelet Count 170 TH/MM3 # 03/17/17 0500 Sodium Level 140 MEQ/L 03/17/17 0500 Potassium Level 4.1 MEQ/L # 03/17/17 0500 Chloride Level 109 MEQ/L H # 03/17/17 0500 Carbon Dioxide Level 26.0 MEQ/L 03/17/17 0500 Blood Urea Nitrogen 10 MG/DL # 03/17/17 0500 Creatinine 0.67 MG/DL 03/17/17 0500 Random Glucose 76 MG/DL 03/17/17 0500 Lactic Acid Level 1.8 mmol/L 03/16/17 0935 Aspartate Amino Transf (AST/SGOT) 13 U/L L 03/17/17 0500 Alanine Aminotransferase (ALT/SGPT) 12 U/L 03/17/17 0500 Alkaline Phosphatase 89 U/L 03/17/17 0500 Urine Opiates Screen NEG 03/16/17 0830 Urine Barbiturates Screen NEG 03/16/17 0830 Urine Amphetamines Screen NEG 03/16/17 0830 Urine Benzodiazepines Screen NEG 03/16/17 0830 Urine Cocaine Screen NEG 03/16/17 0830 Urine Cannabinoids Screen NEG 03/16/17 0830 Urinalysis concerning for UTI and urine culture grew out staphylococcus species. Blood cultures negative. Mental Status Examination Patient is casually dressed. She is fairly disheveled. She is awake and alert and oriented to person and hospital. No motor abnormalities noted. Speech is somewhat rambling initially and grows increasingly disjointed and disorganized as the conversation progresses. Mood is fairly irritable and affect is restricted and consistent with stated mood. Thought process disorganized. Associations loose. No gabby delusions. No audiovisual hallucinations reported although the patient does appear internally preoccupied. She denies suicidal or homicidal ideation but seems unreliable to contract for safety. Insight and judgment are poor. Assessment & Plan Problem List: (1) Bipolar disorder ICD Code: F31.9 Assessment & Plan Given the circumstances of the patient's presentation here as well as her presentation on my examination today, I concur with Dr. Catalan that the patient meets criteria for involuntary psychiatric hospitalization under the Bernard act. I completed second opinion paperwork. Further care as per Dr. Catalan. Thank you very much for this consultation. Signing off. Problem Qualifiers (1) Bipolar disorder: Qualified Code: F31.2 - Bipolar affective disorder, currently manic, severe, with psychotic features Estuardo Mancilla MD March 18, 2017 12:05
--- NOTE | 2017-03-18 14:01 | HHI.PYPN ---
Subjective Remarks Patient seen today for psychiatric reevaluation along with nurse in charge Clemente , patient is on her bed, still irritable and oppositional, but redirectable. Patient reports that she has been doing much better now, had good sleep last night, enjoyed her breakfast this morning, with a good appetite, however, during the evaluation becomes tangential and kind of disorganized. She had some episodes of agitation in the unit, but she was verbally escalated. Review of Systems Other No somatic complaint Objective Alert: Yes [place]: Person, Place, Date Mood: Angry Affect: Other (irritable) Memory Intact: Immediate, Recent, Remote Hallucinations: Other (she denies) Delusions: No Delusion Type: Other (none elicited) Suicidal: Ideation (no SI) Homicidal: Ideation (no HI) Insight/Judgment Poor Vitals/IOs Vital Signs Date Time Temp Pulse Resp B/P Pulse Ox O2 Delivery O2 Flow Rate FiO2 03/18/17 06:00 97.5 83 18 107/56 98 Intake and Output 03/17/17 03/17/17 03/18/17 08:00 16:00 00:00 Intake Total 240 ml 360 ml Balance 240 ml 360 ml Assessment & Plan Problem List: (1) Bipolar disorder Assessment & Plan: Patient continues to be manic-like. We'll continue current psychotropics ICD Code: F31.9 Assessment & Plan Estimated LOS: days Justification for Cont. Inpt. Patient has a high risk to decompensate out of inpatient level of care Problem Qualifiers (1) Bipolar disorder: Desean Catalan MD March 18, 2017 14:01
[2017-03-18] MEDS: clonazePAM 1 MG TAB PO SCH (21:50)
[2017-03-19 05:26] VITALS: BP 111/56; PULSE 59; RESP 16; TEMP 97.6; O2SAT 99
[2017-03-19] MEDS: buPROPion HCL 75 MG TAB PO SCH ×2 (08:23→12:03)
[2017-03-19] MEDS: CARBOXYMETHYLCELL SOD 0.5% OPTH SOLN 15 ML BTL EACH EYE PRN (08:23)
[2017-03-19] MEDS: carBAMazepine 200 MG TAB PO SCH ×2 (08:24→21:26)
[2017-03-19] MEDS: CIPROFLOXACIN 250 MG TAB PO SCH ×2 (08:24→21:25)
--- NOTE | 2017-03-19 13:17 | HHI.PYPN ---
Subjective Remarks Patient very hyperverbal but in a good mood. She knows this physician and has a hard time detaching herself from any conversation. Review of Systems Except as stated in HPI: all other systems reviewed are Neg Objective Alert: Yes [place]: Person, Place, Date Mood: Angry Affect: Other (irritable) Memory Intact: Immediate, Recent, Remote Hallucinations: Other (she denies) Delusions: No Delusion Type: Other (none elicited) Suicidal: Ideation (no SI) Homicidal: Ideation (no HI) Insight/Judgment Impaired Vitals/IOs Vital Signs Date Time Temp Pulse Resp B/P Pulse Ox O2 Delivery O2 Flow Rate FiO2 03/19/17 05:26 97.6 59 16 111/56 99 Intake and Output 03/18/17 03/18/17 03/19/17 08:00 16:00 00:00 Intake Total 480 ml Balance 480 ml Assessment & Plan Problem List: (1) Bipolar disorder ICD Code: F31.9 Assessment & Plan Estimated LOS: 5 days continues to need more time to stabilize on medicines. Justification for Cont. Inpt. Likely to decompensate at lower level of care. Problem Qualifiers (1) Bipolar disorder: Qualified Code: F31.2 - Bipolar affective disorder, currently manic, severe, with psychotic features Israel Easton MD March 19, 2017 13:17
[2017-03-19 18:19] VITALS: BP 122/63; PULSE 88; O2SAT 98
[2017-03-19] MEDS: clonazePAM 1 MG TAB PO SCH (21:25)
[2017-03-20 05:21] VITALS: BP 104/65; PULSE 81; RESP 18; TEMP 97.4; O2SAT 100
[2017-03-20] MEDS: CARBOXYMETHYLCELL SOD 0.5% OPTH SOLN 15 ML BTL EACH EYE PRN ×3 (08:48→20:09)
[2017-03-20] MEDS: buPROPion HCL 75 MG TAB PO SCH ×2 (08:49→13:06)
[2017-03-20] MEDS: carBAMazepine 200 MG TAB PO SCH ×2 (08:50→20:58)
[2017-03-20] MEDS: CIPROFLOXACIN 250 MG TAB PO SCH ×2 (08:50→20:09)
[2017-03-20 18:20] VITALS: BP 97/64; PULSE 79; RESP 18; TEMP 97.4; O2SAT 98
[2017-03-20] MEDS: NICOTINE 21 MG/24 HR PATCH T-DERMAL SCH (18:32)
--- NOTE | 2017-03-20 18:40 | HHI.PYPN ---
Subjective Remarks Continues to be hyperverbal and hypomanic. He has many requests. This physician will order [place] patch and eyedrops more frequently per patient request. Review of Systems Except as stated in HPI: all other systems reviewed are Neg Objective Alert: Yes [place]: Person, Place, Date Mood: Angry Affect: Other (irritable) Memory Intact: Immediate, Recent, Remote Hallucinations: Other (she denies) Delusions: No Delusion Type: Other (none elicited) Suicidal: Ideation (no SI) Homicidal: Ideation (no HI) Insight/Judgment Impaired Vitals/IOs Vital Signs Date Time Temp Pulse Resp B/P Pulse Ox O2 Delivery O2 Flow Rate FiO2 03/20/17 18:20 97.4 79 18 97/64 98 Intake and Output 03/19/17 03/19/17 03/20/17 08:00 16:00 00:00 Intake Total 360 ml Balance 360 ml Assessment & Plan Problem List: (1) Bipolar disorder ICD Code: F31.9 Assessment & Plan Estimated LOS: 3 days continue mood stabilizing medications. Justification for Cont. Inpt. Likely to decompensate at lower level of care. Problem Qualifiers (1) Bipolar disorder: Qualified Code: F31.2 - Bipolar affective disorder, currently manic, severe, with psychotic features Israel Easton MD March 20, 2017 18:40
[2017-03-20 20:28] VITALS: BP 100/70; PULSE 91; RESP 18; TEMP 98.1; O2SAT 94
[2017-03-20] MEDS: clonazePAM 1 MG TAB PO SCH (20:58)
[2017-03-21] MEDS: CARBOXYMETHYLCELL SOD 0.5% OPTH SOLN 15 ML BTL EACH EYE PRN (03:07)
[2017-03-21 05:20] VITALS: BP 116/62; PULSE 81; RESP 16; TEMP 98; O2SAT 100
[2017-03-21] MEDS: buPROPion HCL 75 MG TAB PO SCH ×2 (08:00→12:00)
[2017-03-21] MEDS: CIPROFLOXACIN 250 MG TAB PO SCH ×2 (08:19→20:17)
[2017-03-21] MEDS: carBAMazepine 200 MG TAB PO SCH ×2 (08:19→20:17)
[2017-03-21] MEDS: NICOTINE 21 MG/24 HR PATCH T-DERMAL SCH (08:20)
[2017-03-21] MEDS: REMOVE OLD PATCH T-DERMAL SCH (08:20)
[2017-03-21] MEDS: MAGNESIUM HYDROXIDE SUSP 30 ML CUP PO PRN (11:11)
--- NOTE | 2017-03-21 12:26 | HHI.PYPN ---
Subjective Remarks Patient continues to be hyperverbal with flight of ideas. She is currently concerned about constipation. This physician prescribed milk of magnesia. Review of Systems Except as stated in HPI: all other systems reviewed are Neg Objective Alert: Yes [place]: Person, Place, Date Mood: Angry Affect: Other (irritable) Memory Intact: Immediate, Recent, Remote Hallucinations: Other (she denies) Delusions: No Delusion Type: Other (none elicited) Suicidal: Ideation (no SI) Homicidal: Ideation (no HI) Insight/Judgment Impaired. Vitals/IOs Vital Signs Date Time Temp Pulse Resp B/P Pulse Ox O2 Delivery O2 Flow Rate FiO2 03/21/17 05:20 98.0 81 16 116/62 100 Intake and Output 03/20/17 03/20/17 03/21/17 08:00 16:00 00:00 Intake Total 240 ml Balance 240 ml Assessment & Plan Problem List: (1) Bipolar disorder ICD Code: F31.9 Assessment & Plan Estimated LOS: 3 days will continue mood stabilizing medications and antibiotics for recent UTI. Justification for Cont. Inpt. Likely to decompensate at lower level of care. Problem Qualifiers (1) Bipolar disorder: Qualified Code: F31.2 - Bipolar affective disorder, currently manic, severe, with psychotic features Israel Easton MD March 21, 2017 12:26
[2017-03-21 19:02] VITALS: BP 136/79; PULSE 98; RESP 18; TEMP 98.3; O2SAT 97
[2017-03-21] MEDS: clonazePAM 1 MG TAB PO SCH (20:17)
[2017-03-22 05:14] VITALS: BP 97/56; PULSE 86; RESP 18; TEMP 97.6; O2SAT 98
[2017-03-22] MEDS: buPROPion HCL 75 MG TAB PO SCH ×2 (08:00→12:00)
[2017-03-22 08:49] VITALS: BP 97/56; PULSE 86; RESP 18; TEMP 97.6; O2SAT 98
[2017-03-22] MEDS: NICOTINE 21 MG/24 HR PATCH T-DERMAL SCH (09:00)
[2017-03-22] MEDS: REMOVE OLD PATCH T-DERMAL SCH (09:00)
[2017-03-22] MEDS: CIPROFLOXACIN 250 MG TAB PO SCH ×2 (09:00→21:25)
[2017-03-22] MEDS: carBAMazepine 200 MG TAB PO SCH (09:00)
[2017-03-22] MEDS: DIVALPROEX SODIUM E.R. 250 MG TAB PO SCH ×2 (11:45→21:00)
--- NOTE | 2017-03-22 11:46 | HHI.PYPN ---
Subjective Remarks Patient seen today for psychiatric reevaluation along with nurse in charge Clemente and social sciences research scientist Carlyn, patient is found in her bed, with increased pressured speech, talkative, becoming easily agitated, irritable, at times verbally hostile and disorganized. Patient is oriented 3, she does not seem to have any cognitive problem. With redirection she can answer most of depression, but she can easily come verbomanic, with flight of ideas and disorganized patient. She has been compliant with her medications, no episodes of agitation or aggressive behavior reported. Review of Systems Other Patient does not present any somatic complaints at this moment Objective Alert: Yes [place]: Person, Place, Date Mood: Angry Affect: Other (irritable) Memory Intact: Immediate, Recent, Remote Hallucinations: Other (she denies) Delusions: No Delusion Type: Grandiose Suicidal: Ideation (no SI) Homicidal: Ideation (no HI) Insight/Judgment Poor Vitals/IOs Vital Signs Date Time Temp Pulse Resp B/P Pulse Ox O2 Delivery O2 Flow Rate FiO2 03/22/17 08:49 97.6 86 18 97/56 98 Intake and Output 03/21/17 03/21/17 03/22/17 08:00 16:00 00:00 Intake Total 360 ml 840 ml Balance 360 ml 840 ml Assessment & Plan Problem List: (1) Bipolar disorder Assessment & Plan: Patient shows persistent and even increased features of [place], including pressure speech, disorganized speech and behavior, flight of ideas, grandiose delusions, marked irritability. We will increase olanzapine to 20 mg at bedtime, will add Depakote 250 mg twice a day for mood stabilization , and we will start taper down carbamazepine to 100 twice a day. ICD Code: F31.9 Assessment & Plan Estimated LOS: days Justification for Cont. Inpt. Patient is acutely manic/psychotic and needs to continue current level of psychiatric care. Problem Qualifiers (1) Bipolar disorder: Qualified Code: F31.2 - Bipolar affective disorder, currently manic, severe, with psychotic features Desean Catalan MD March 22, 2017 11:45
[2017-03-22 13:13] LABS: HEMATOCRIT 39.2 % (35.0-46.0); MEAN CELL VOLUME 100.9 FL (80.0-100.0); MEAN CORPUSCULAR HEMOGLOBIN 33.3 PG (27.0-34.0); PLATELET COUNT 202 TH/MM3 (150-450); RED BLOOD COUNT 3.88 MIL/MM3 (4.00-5.30); RED CELL DISTRIBUTION WIDTH 13.7 % (11.6-17.2); REVIEW FLAG FINAL; WHITE BLOOD COUNT 6.7 TH/MM3 (4.0-11.0)
[2017-03-22 13:36] LABS: ALT (GPT) 15 U/L (10-53); ANION GAP 10 MEQ/L (5-15); AST (GOT) 14 U/L (15-37); BICARBONATE 26.7 MEQ/L (21.0-32.0); BLOOD UREA NITROGEN 7 MG/DL (7-18); CHLORIDE 98 MEQ/L (98-107); GLOMERULAR FILTRATION RATE 78 ML/MIN (>89); POTASSIUM 4.4 MEQ/L (3.5-5.1); SODIUM (NA) 135 MEQ/L (136-145)
[2017-03-22 13:46] LABS: ALKALINE PHOSPHATASE 113 U/L (45-117); THYROXINE (T4) 6.8 MCG/DL (4.8-13.9); TOTAL BILIRUBIN ADULT 0.1 MG/DL (0.2-1.0)
[2017-03-22 17:04] VITALS: BP 126/80; PULSE 89; RESP 17; TEMP 98.1; O2SAT 99
[2017-03-22] MEDS: clonazePAM 1 MG TAB PO SCH (21:28)
[2017-03-22] MEDS: OLANZapine 10 MG TAB PO SCH (21:28)
[2017-03-23 05:11] VITALS: BP 87/53; PULSE 72; RESP 15; TEMP 97.7; O2SAT 97
[2017-03-23] MEDS: buPROPion HCL 75 MG TAB PO SCH ×2 (08:00→12:00)
[2017-03-23] MEDS: CARBOXYMETHYLCELL SOD 0.5% OPTH SOLN 15 ML BTL EACH EYE PRN (08:37)
[2017-03-23] MEDS: DIVALPROEX SODIUM E.R. 250 MG TAB PO SCH ×3 (08:37→09:00)
[2017-03-23] MEDS: NICOTINE 21 MG/24 HR PATCH T-DERMAL SCH (08:38)
[2017-03-23] MEDS: REMOVE OLD PATCH T-DERMAL SCH (08:41)
[2017-03-23] MEDS: CIPROFLOXACIN 250 MG TAB PO SCH ×2 (08:44→21:17)
--- NOTE | 2017-03-23 11:54 | PD.TTN ---
Present for Treatment Team Treatment Team Staff: Provider, Nurse, Psych Therapist, Occupational Therapist Patient Problems 1. Discharge planning 2. Medication compliance 3. Knowledge deficit 4. Lack of coping skills Progress Toward Goals Provider Input: Patient will be attending [facility], along with [facility] staff, and her mother who would like to staff case for [facility]. At this point patient behavior, and mental status is progressing, she continues to require inpatient due to behavior issues, her inability to understand her mental health, medication needs which place patient at risk for intentional self-harm. Nurse Input: Patient is taking her medication with the exception of one medication she has refused. Patient is eating meals and observed walking around. Psych Therapist Input: Patient at times observed responding to internal and visual stimuli, she becomes easily agitated with loud and aggressive thoughts which are very difficult to redirect. Patient will continue to be redirect with appropriate behavior and tech's to relax. Occupational Therapist Input: Per OT, patient has been going to groups, however she mostly sleep throughout the groups, and isn't very socialable. Carlyn Escobedo [facility] March 23, 2017 11:54
--- NOTE | 2017-03-23 13:02 | HHI.PYPN ---
Subjective Remarks Patient was seen today for psychiatric reevaluation, patient was found calmer and more cooperative today, she says that she doesn't want to take Depakote because Depakote gave her bad side effects in the past. She would not elaborate about the side effects. She reports better mood today, good sleep, good level of energy, good appetite, less mood swings. She denies suicidal or homicidal ideation, she denies visual and auditory hallucinations. Today patient is less irritable, labile and disorganized than yesterday. Patient says that she wants to be discharged to go back to live in a motel with her own income. Patient is fully oriented 3, compliant with medications, no agitation or aggressive behavior reported. Review of Systems Other No somatic complaint Objective Alert: Yes [place]: Person, Place, Date Mood: Calm Affect: Other (irritable) Memory Intact: Immediate, Recent, Remote Hallucinations: Other (she denies) Delusions: No Delusion Type: Grandiose Suicidal: Ideation (no SI) Homicidal: Ideation (no HI) Insight/Judgment Poor Labs Test 03/22/17 15:31 Total Triiodothyronine 80 NG/DL Vitals/IOs Vital Signs Date Time Temp Pulse Resp B/P Pulse Ox O2 Delivery O2 Flow Rate FiO2 03/23/17 05:11 97.7 72 15 87/53 97 Intake and Output 03/22/17 03/22/17 03/23/17 08:00 16:00 00:00 Intake Total 1080 ml 1200 ml 720 ml Balance 1080 ml 1200 ml 720 ml Assessment & Plan Problem List: (1) Bipolar disorder Assessment & Plan: Patient seems to be less emotional incontinent today, with better control of her impulses. Will continue carbamazepine 200 mg twice a day and olanzapine 20 mg at bedtime. Carbamazepine level is 12. ICD Code: F31.9 Assessment & Plan Estimated LOS: days Justification for Cont. Inpt. Patient has an elevated risk to decompensate at a lower level of care Problem Qualifiers (1) Bipolar disorder: Qualified Code: F31.2 - Bipolar affective disorder, currently manic, severe, with psychotic features Desean Catalan MD March 23, 2017 13:02
[2017-03-23] MEDS: clonazePAM 1 MG TAB PO SCH (21:18)
[2017-03-23] MEDS: OLANZapine 10 MG TAB PO SCH (21:19)
[2017-03-24 06:14] VITALS: BP 93/61; PULSE 74; RESP 16; TEMP 98.1; O2SAT 100
[2017-03-24] MEDS: buPROPion HCL 75 MG TAB PO SCH ×2 (10:00→11:40)
[2017-03-24] MEDS: NICOTINE 21 MG/24 HR PATCH T-DERMAL SCH (10:01)
[2017-03-24] MEDS: CIPROFLOXACIN 250 MG TAB PO SCH ×2 (10:01→21:54)
[2017-03-24] MEDS: REMOVE OLD PATCH T-DERMAL SCH (10:02)
--- NOTE | 2017-03-24 11:29 | HHI.PYPN ---
Subjective Remarks I am assuming care of this patient. Patient seen and examined with nurse, Lucius. Chart reviewed. Case discussed with nursing staff who reports that the patient is tangential but medication compliant. On my examination today, the patient presents as somewhat disorganized, and this disorganization grows more acute the longer we are in conversation. She is irritable and argumentative. She is fixated on obtaining her own apartment. She was retained by the [employer] act court today, but the patient insists that she was only held temporarily so that she could get her apartment today. Denies side effects from medications. Wants CBZ chewables changed to regular tabs. No physical complaints. Review of Systems ROS Limitations: Psychotic, Poor Historian Except as stated in HPI: all other systems reviewed are Neg Objective Alert: Yes [place]: Person, Place Mood: Anxious, Oppositional Affect: Other (irritable) Memory Intact: Comment (not formally assessed) Hallucinations: Other (no AVH) Delusions: Yes Delusion Type: Grandiose Suicidal: Ideation (no SI) Homicidal: Ideation (no HI) Insight/Judgment Poor Remarks Thought disorganization, more pronounced with extended conversation noted. Speech somewhat rambling. No motor abnormalities noted. Grooming and hygiene fair. Labs Labs reviewed. CBC is unremarkable except for macrocytosis without anemia. CMP reveals mildly decreased GFR. TFTs within normal limits. Carbamazepine level is 12, within the therapeutic range. Vitals/IOs Vital Signs Date Time Temp Pulse Resp B/P Pulse Ox O2 Delivery O2 Flow Rate FiO2 03/24/17 06:14 98.1 74 16 93/61 100 Intake and Output 03/23/17 03/23/17 03/24/17 08:00 16:00 00:00 Intake Total 2400 ml Output Total 1 ml Balance -1 ml 2400 ml Assessment & Plan Problem List: (1) Bipolar disorder Assessment & Plan: Rule out schizoaffective disorder, bipolar type ICD Code: F31.9 Assessment & Plan Titrate Zyprexa to 5/20mg to target ongoing psychotic symptoms. I will change CBZ formulation as patient asks, keeping dose the same. Continue other medications and care as ordered. Patient's case was presented to the [employer] by Dr. Catalan, and patient was retained on the unit with a JORDANA guardian. Justification for Cont. Inpt. Impairment in reality construction. Concern for impairment in self-care. Medication changes in process. High risk for decompensation in a less restrictive environment. Discharge Planning I see from treatment team notes that plan is for state psychiatric hospital referral. I agree. I will initiate a state psychiatric hospital referral now. Request HC Surrog/Guard Advoc?: Yes (JORDANA) Problem Qualifiers (1) Bipolar disorder: Qualified Code: F31.2 - Bipolar affective disorder, currently manic, severe, with psychotic features Estuardo Mancilla MD Mar 24, 2017 11:29
[2017-03-24 16:00] VITALS: BP 108/66; PULSE 91; RESP 18; TEMP 98.3; O2SAT 99
[2017-03-24] MEDS: OLANZapine 10 MG TAB PO SCH (21:00)
[2017-03-24] MEDS: carBAMazepine 200 MG TAB PO SCH (21:54)
[2017-03-24] MEDS: clonazePAM 1 MG TAB PO SCH (21:55)
[2017-03-25 05:41] VITALS: BP 98/53; PULSE 78; RESP 16; TEMP 97.9; O2SAT 99
[2017-03-25] MEDS: NICOTINE 21 MG/24 HR PATCH T-DERMAL SCH (08:36)
[2017-03-25] MEDS: CIPROFLOXACIN 250 MG TAB PO SCH ×2 (08:36→21:31)
[2017-03-25] MEDS: carBAMazepine 200 MG TAB PO SCH ×2 (08:36→21:31)
[2017-03-25] MEDS: buPROPion HCL 75 MG TAB PO SCH ×2 (08:36→12:00)
[2017-03-25] MEDS: REMOVE OLD PATCH T-DERMAL SCH (08:36)
[2017-03-25] MEDS: OLANZapine 5 MG TAB PO SCH (08:39)
--- NOTE | 2017-03-25 12:59 | HHI.PYPN ---
Subjective Remarks Patient seen and examined with counselor and nurse. Chart reviewed. Case discussed with nursing staff who reports the patient has been refusing her Zyprexa and is noted to be quite tangential. On my examination today, the patient remains rambling and tangential. She tells me that she slept "like a baby" last night and this leads to a discussion of her never having had a child which leads to a discussion somehow of . The patient says "maybe when I , I'll have a baby." Patient's insight into her mental illness remains quite poor. She continues to insist that she does not need an antipsychotic. Discharge focused. No side effects from medications. Wants Colace d/c'd, wants Ensure d/c'd. Review of Systems ROS Limitations: Psychotic, Poor Historian Except as stated in HPI: all other systems reviewed are Neg Objective Alert: Yes [place]: Person, Place Mood: Anxious, Oppositional (mild) Affect: Blunted Memory Intact: Comment (not formally assessed) Hallucinations: Other (no AVH) Delusions: Yes Delusion Type: Grandiose Suicidal: Ideation (no suicidal ideation) Homicidal: Ideation (no homicidal ideation) Insight/Judgment Poor Remarks No motor abnormalities noted. Thought process tangential. Speech rambling. Grooming and hygiene fair. Labs Labs reviewed. Vitals/IOs Vital Signs Date Time Temp Pulse Resp B/P Pulse Ox O2 Delivery O2 Flow Rate FiO2 03/25/17 05:41 97.9 78 16 98/53 99 Assessment & Plan Problem List: (1) Bipolar disorder ICD Code: F31.9 Assessment & Plan Add IM backup for patient's Zyprexa. I will discontinue the Colace as she asks but continue the Ensure as she remains quite thin appearing. Check a BMP in the morning to follow up sodium. Continue to monitor on the inpatient unit. Continue other medications and care as ordered. Justification for Cont. Inpt. Medication changes in process. High risk for decompensation in a less restrictive environment. Discharge Planning Placement versus counts include 234 beds at the [facility] hospital referral. Request HC Surrog/Guard Advoc?: Yes Problem Qualifiers (1) Bipolar disorder: Qualified Code: F31.2 - Bipolar affective disorder, currently manic, severe, with psychotic features Estuardo Mancilla MD Mar 25, 2017 12:58
[2017-03-25] MEDS ORDERED: OLANZapine IM 10 MG VIAL IM PRN (13:00)
[2017-03-25 17:18] VITALS: BP 137/71; PULSE 75; RESP 18; TEMP 98.3; O2SAT 99
[2017-03-25] MEDS: clonazePAM 1 MG TAB PO SCH (21:31)
[2017-03-25] MEDS: OLANZapine 10 MG TAB PO SCH (21:31)
[2017-03-26 06:20] VITALS: BP 96/56; PULSE 68; RESP 17; TEMP 97.7; O2SAT 99
[2017-03-26] MEDS: buPROPion HCL 75 MG TAB PO SCH ×2 (08:00→11:40)
[2017-03-26] MEDS: NICOTINE 21 MG/24 HR PATCH T-DERMAL SCH (09:00)
[2017-03-26] MEDS: REMOVE OLD PATCH T-DERMAL SCH (09:00)
[2017-03-26] MEDS: OLANZapine 5 MG TAB PO SCH ×3 (09:00→09:55)
[2017-03-26] MEDS: CIPROFLOXACIN 250 MG TAB PO SCH ×3 (09:10→21:40)
[2017-03-26] MEDS: carBAMazepine 200 MG TAB PO SCH ×2 (09:10→21:41)
--- NOTE | 2017-03-26 16:09 | HHI.PYPN ---
Subjective Remarks Pt seen and discussed with staff. She reports that her brother is building fake police cars and the police stole $[id number] from her. She states that she doesn't need medications and that she has picked a new psychiatrist from the [facility]. She denies medication side effects. No SI/HI. Objective Alert: Yes [place]: Person, Place Mood: Anxious Affect: Blunted Memory Intact: Comment (fair) Hallucinations: Other (no AVH) Delusions: Yes Delusion Type: Grandiose, Paranoid Suicidal: Ideation (no suicidal ideation) Homicidal: Ideation (no homicidal ideation) Insight/Judgment poor Remarks speech is clear, but rambling and loud Vitals/IOs Vital Signs Date Time Temp Pulse Resp B/P Pulse Ox O2 Delivery O2 Flow Rate FiO2 03/26/17 06:20 97.7 68 17 96/56 99 Intake and Output 03/25/17 03/25/17 03/26/17 08:00 16:00 00:00 Intake Total 480 ml Balance 480 ml Assessment & Plan Problem List: (1) Bipolar disorder ICD Code: F31.9 Assessment & Plan Continue current tx plan Estimated LOS: days Justification for Cont. Inpt. florid psychosis Request HC Surrog/Guard Advoc?: Yes Problem Qualifiers (1) Bipolar disorder: Qualified Code: F31.2 - Bipolar affective disorder, currently manic, severe, with psychotic features Trina Fernandez MD Mar 26, 2017 4:09 pm
[2017-03-26 18:34] VITALS: BP 108/68; PULSE 89; RESP 16; TEMP 97.8; O2SAT 99
[2017-03-26] MEDS: OLANZapine 10 MG TAB PO SCH ×2 (21:00→21:41)
[2017-03-26] MEDS: clonazePAM 1 MG TAB PO SCH (21:40)
[2017-03-27 06:28] VITALS: BP 101/59; PULSE 86; RESP 18; TEMP 97.1; O2SAT 98
[2017-03-27] MEDS: buPROPion HCL 75 MG TAB PO SCH ×2 (08:00→12:00)
[2017-03-27] MEDS: NICOTINE 21 MG/24 HR PATCH T-DERMAL SCH (09:00)
[2017-03-27] MEDS: REMOVE OLD PATCH T-DERMAL SCH (09:00)
[2017-03-27] MEDS: CIPROFLOXACIN 250 MG TAB PO SCH ×2 (09:02→21:01)
[2017-03-27] MEDS: carBAMazepine 200 MG TAB PO SCH ×2 (09:02→21:02)
[2017-03-27] MEDS: OLANZapine 5 MG TAB PO SCH (09:02)
--- NOTE | 2017-03-27 18:18 | HHI.PYPN ---
Subjective Remarks Pt seen and discussed with staff. She remains delusional and manic with poor insight. Staff report that pt has been having highly animated conversations in room and threatened to let Dr. Easton "have it!" when she sees him. She is compliant with medications and denies side effects. Objective Alert: Yes [place]: Person, Place Mood: Anxious Affect: Blunted Memory Intact: Comment (fair) Hallucinations: Other (no AVH) Delusions: Yes Delusion Type: Grandiose, Paranoid Suicidal: Ideation (no suicidal ideation) Homicidal: Ideation (no homicidal ideation) Insight/Judgment poor Vitals/IOs Vital Signs Date Time Temp Pulse Resp B/P Pulse Ox O2 Delivery O2 Flow Rate FiO2 03/27/17 06:28 97.1 86 18 101/59 98 Assessment & Plan Problem List: (1) Bipolar disorder ICD Code: F31.9 Assessment & Plan Continue current tx plan. Estimated LOS: days Justification for Cont. Inpt. psychotic and impairments in social functioning Request HC Surrog/Guard Advoc?: Yes Problem Qualifiers (1) Bipolar disorder: Qualified Code: F31.2 - Bipolar affective disorder, currently manic, severe, with psychotic features Trina Fernandez MD Mar 27, 2017 18:18
[2017-03-27 18:25] VITALS: BP 122/72; PULSE 82; RESP 19; TEMP 98.1; O2SAT 99
[2017-03-27] MEDS: clonazePAM 1 MG TAB PO SCH ×2 (21:00→21:01)
[2017-03-27] MEDS: OLANZapine 10 MG TAB PO SCH ×2 (21:01→21:58)
[2017-03-28 06:29] VITALS: BP 80/47; PULSE 71; RESP 17; TEMP 98.6; O2SAT 98
[2017-03-28] MEDS: REMOVE OLD PATCH T-DERMAL SCH (09:00)
[2017-03-28] MEDS: carBAMazepine 200 MG TAB PO SCH ×2 (09:03→20:13)
[2017-03-28] MEDS: NICOTINE 21 MG/24 HR PATCH T-DERMAL SCH (09:03)
[2017-03-28] MEDS: OLANZapine 5 MG TAB PO SCH (09:03)
[2017-03-28] MEDS: buPROPion HCL 75 MG TAB PO SCH ×2 (09:03→12:00)
[2017-03-28] MEDS: CIPROFLOXACIN 250 MG TAB PO SCH ×2 (09:03→20:13)
--- NOTE | 2017-03-28 11:25 | HHI.PYPN ---
Subjective Remarks Patient seen and examined with nurse. Chart reviewed. Case discussed with nursing staff reports the patient remains very disorganized, particularly with prolonged conversation. On my examination today, when I asked the patient what her goals for the upcoming week are with regards to her treatment, the patient rehearses a long, rambling story of how she came to be in the hospital saying "the reason why I'm here is I got a flat tire. I got my car towed. A ordnance officer got my car towed. I'm trying to get a really nice apartment. I'm highly functional. The deputy sheriff bailiff's had [employer] come to towed the car. When you're in your car for 2 days and don't know where to go to the bathroom, etc. etc." She is somewhat difficult to redirect. Minimizes other psychiatric symptoms and insight into current mental illness is poor. No side effects from medications. No physical complaints. Review of Systems ROS Limitations: Psychotic, Poor Historian Except as stated in HPI: all other systems reviewed are Neg Objective Alert: Yes [place]: Person, Place Mood: Anxious (mild) Affect: Blunted Memory Intact: Comment (Remains fair) Hallucinations: Other (No AVH) Delusions: Yes Delusion Type: Paranoid Suicidal: Ideation (No SI) Homicidal: Ideation (No HI) Insight/Judgment Poor Remarks No motor abnormalities noted. Thought process grows more disorganized with more extended conversation. Speech rambling. Grooming and hygiene fair at best. Labs Labs reviewed. Vitals/IOs Vital Signs Date Time Temp Pulse Resp B/P Pulse Ox O2 Delivery O2 Flow Rate FiO2 03/28/17 06:29 98.6 71 17 80/47 98 Intake and Output 03/27/17 03/27/17 03/27/17 07:59 15:59 23:59 Intake Total 1300 ml Balance 1300 ml Assessment & Plan Problem List: (1) Bipolar disorder ICD Code: F31.9 Assessment & Plan Titrate Zyprexa to 10 mg 3 times a day PO with IM backup to target ongoing thought disorganization. I hope that by spreading the dose out more it will have less effect on BP. Continue other psychotropics as ordered. Continue to monitor on the inpatient unit. Continue other medications and care as ordered. Justification for Cont. Inpt. Impairment in self-care outside of the hospital. Medication changes in process. High risk for decompensation in a less restrictive environment. [facility] Request [facility] Surrog/Guard Advoc?: Yes Problem Qualifiers (1) Bipolar disorder: Qualified Code: F31.2 - Bipolar affective disorder, currently manic, severe, with psychotic features Estuardo Mancilla MD Mar 28, 2017 11:25
[2017-03-28] MEDS: OLANZapine 10 MG TAB PO SCH ×2 (13:00→20:13)
[2017-03-28] MEDS ORDERED: OLANZapine IM 10 MG VIAL IM PRN (13:00)
[2017-03-28 16:00] VITALS: BP 130/73; PULSE 85; RESP 20; TEMP 98.6; O2SAT 97
[2017-03-28] MEDS: clonazePAM 1 MG TAB PO SCH (20:13)
[2017-03-29 05:32] VITALS: BP 110/68; PULSE 84; RESP 16; TEMP 97.6; O2SAT 97
[2017-03-29] MEDS: buPROPion HCL 75 MG TAB PO SCH ×2 (08:00→12:00)
[2017-03-29 08:10] LABS: BICARBONATE 28.5 MEQ/L (21.0-32.0); POTASSIUM 3.9 MEQ/L (3.5-5.1)
[2017-03-29] MEDS: OLANZapine 10 MG TAB PO SCH ×3 (08:54→21:26)
[2017-03-29] MEDS: REMOVE OLD PATCH T-DERMAL SCH (08:54)
[2017-03-29] MEDS: CIPROFLOXACIN 250 MG TAB PO SCH (08:54)
[2017-03-29] MEDS: carBAMazepine 200 MG TAB PO SCH ×2 (08:54→21:27)
[2017-03-29] MEDS: NICOTINE 21 MG/24 HR PATCH T-DERMAL SCH (08:54)
--- NOTE | 2017-03-29 10:42 | PD.TTN ---
Present for Treatment Team Treatment Team Staff: Provider, Nurse, Psych Therapist, Clinical Specialist Patient Problems 1. Discharge planning 2. Medication compliance 3. Knowledge deficit 4. Lack of coping skills Progress Toward Goals Provider Input: Dr. Mancilla treatment team met to discuss patient's treatment plan, medication, and discharge plan. [facility] Nurse Input: Patient's nurse Ambreen reports patient presents anxious, delusional, restless, and irritable. Patient is medication compliant. Psych Therapist Input: Patient presents anxious, restless, easily agitated, affect blunted. Patient continues to present with delusional content. Patient has poor insight into her mental illness. Patient is medication compliant, eating and sleeping well. Patient's speech is clear, hyperverbal, with loose association. Patient has no set date for [facility] at this time. Clinical Specialist Input: Jorge A MCMULLEN reports patient has been refusing groups. Isolates to room. Cheyenne Kilgore [facility] Mar 29, 2017 10:42
--- NOTE | 2017-03-29 12:09 | HHI.PYPN ---
Subjective Remarks Patient seen and examined. Chart reviewed. Case discussed in treatment team with counselor, nurse and occupational therapist. Patient reportedly told nursing staff that the reason that the shoreline is receding is because she "hasn't pissed in it yet." Patient heard self-dialoguing in her room prior to my evaluation. On my evaluation, patient remains somewhat disorganized. Perhaps a little less perseverative on discharge. Reports that she slept poorly overnight, and we discuss that her HS Zyprexa dose was lessened in service of spreading the dose more evenly throughout the day. I offer to return to old dosing, but patient wants to give current dosing scheme more of a try. No side effects from medications. No physical complaints. Review of Systems ROS Limitations: Psychotic, Poor Historian Except as stated in HPI: all other systems reviewed are Neg Objective Alert: Yes [place]: Person, Place Mood: Anxious (less) Affect: Blunted Memory Intact: Comment (fair) Hallucinations: Auditory (responding to internal stimuli) Delusions: No Delusion Type: Other (No gabby delusions today) Suicidal: Ideation (No SI) Homicidal: Ideation (No HI) Insight/Judgment Poor Remarks No motor abnormalities noted. Labs Test 03/29/17 07:07 Sodium Level 137 MEQ/L Potassium Level 3.9 MEQ/L Chloride Level 102 MEQ/L Carbon Dioxide Level 28.5 MEQ/L Anion Gap 7 MEQ/L Blood Urea Nitrogen 9 MG/DL Creatinine 0.80 MG/DL Estimat Glomerular Filtration 74 ML/MIN Rate Random Glucose 99 MG/DL Calcium Level 9.1 MG/DL Labs reviewed. Hyponatremia resolved. Renal function stable. Vitals/IOs Vital Signs Date Time Temp Pulse Resp B/P Pulse Ox O2 Delivery O2 Flow Rate FiO2 03/29/17 05:32 97.6 84 16 110/68 97 Intake and Output 03/28/17 03/28/17 03/29/17 08:00 16:00 00:00 Intake Total 360 ml Balance 360 ml Assessment & Plan Problem List: (1) Bipolar disorder ICD Code: F31.9 Assessment & Plan Continue Zyprexa 10 mg 3 times daily. Continue other psychotropics as ordered. D/c Cipro; no further indication for this medication. Continue other medications and care as ordered. Justification for Cont. Inpt. Impairment in self-care outside of the hospital. High risk for decompensation in a less restrictive environment. Discharge Planning [facility] psychiatric hospital referral Request HC Surrog/Guard Advoc?: Yes Problem Qualifiers (1) Bipolar disorder: Qualified Code: F31.2 - Bipolar affective disorder, currently manic, severe, with psychotic features Estuardo Mancilla MD Mar 29, 2017 12:09
[2017-03-29 16:23] VITALS: BP 103/65; PULSE 80; RESP 16; TEMP 98.4; O2SAT 96
[2017-03-29] MEDS: clonazePAM 1 MG TAB PO SCH (21:26)
[2017-03-30 05:36] VITALS: BP 89/53; PULSE 68; RESP 16; TEMP 97.6; O2SAT 100
[2017-03-30 05:59] VITALS: BP 90/70
[2017-03-30] MEDS: buPROPion HCL 75 MG TAB PO SCH ×2 (08:45→12:00)
[2017-03-30] MEDS: REMOVE OLD PATCH T-DERMAL SCH (09:00)
[2017-03-30] MEDS: OLANZapine 10 MG TAB PO SCH ×3 (09:03→21:47)
[2017-03-30] MEDS: carBAMazepine 200 MG TAB PO SCH ×2 (09:03→21:47)
[2017-03-30] MEDS: NICOTINE 21 MG/24 HR PATCH T-DERMAL SCH (09:04)
--- NOTE | 2017-03-30 11:44 | HHI.PYPN ---
Subjective Remarks Patient seen and examined with counselor and nurse. Chart reviewed. Case discussed with nursing staff who reports that the patient is somewhat anxious and disorganized and rambling about [employer] [place]. On my evaluation, patient seems somewhat calmer. She is able to maintain a line of coherent thought for a time, talking reasonably about her sleep and appetite, both of which are good. She derails thereafter and begins rambling about "I'm shedding a snake. I went to the snake store." Denies side effects from medications. No physical complaints. Review of Systems ROS Limitations: Psychotic, Poor Historian Except as stated in HPI: all other systems reviewed are Neg Objective Alert: Yes [place]: Person, Place Mood: Calm Affect: Blunted Memory Intact: Comment (fair) Hallucinations: Auditory (continues to respond to internal stimuli) Delusions: No Delusion Type: Other (none) Suicidal: Ideation (No SI) Homicidal: Ideation (No HI) Insight/Judgment Poor Remarks Thoughts derail with prolonged questioning. Grooming and hygiene fair at best. Speech somewhat rambling, even under optimal conditions. Labs Labs reviewed. Vitals/IOs Vital Signs Date Time Temp Pulse Resp B/P Pulse Ox O2 Delivery O2 Flow Rate FiO2 03/30/17 05:59 90/70 03/30/17 05:36 97.6 68 16 100 Intake and Output 03/29/17 03/29/17 03/30/17 08:00 16:00 00:00 Intake Total 1680 ml Balance 1680 ml Blood pressures continue to be on the low side, although the patient insists that she runs low. Assessment & Plan Problem List: (1) Bipolar disorder ICD Code: F31.9 Assessment & Plan Continue Zyprexa and other psychotropics as ordered. I have offered to add a small dose of a benzodiazepine in the morning for anxiety, but the patient declines. I am not sure that were getting much therapeutic benefit from the higher dose of Zyprexa, and it might be worth considering an additional or alternative antipsychotic agent. I will reassess for this tomorrow. Continue to monitor on the inpatient unit in the meantime. Continue other medications and care as ordered. Justification for Cont. Inpt. Impairment in self-care outside of the hospital setting. Impairment in reality construction. High risk for decompensation in a less restrictive environment. [facility] Request HC Surrog/Guard Advoc?: Yes Problem Qualifiers (1) Bipolar disorder: Qualified Code: F31.2 - Bipolar affective disorder, currently manic, severe, with psychotic features Estuardo Mancilla MD Mar 30, 2017 11:43
[2017-03-30] MEDS: clonazePAM 1 MG TAB PO SCH (21:47)
[2017-03-30 22:03] VITALS: BP 137/68; PULSE 82; RESP 16; TEMP 97.5; O2SAT 99
[2017-03-31 06:22] VITALS: BP 113/56; PULSE 84; RESP 16; TEMP 97.6; O2SAT 97
[2017-03-31] MEDS: buPROPion HCL 75 MG TAB PO SCH ×2 (08:00→12:00)
[2017-03-31] MEDS: OLANZapine 10 MG TAB PO SCH ×3 (08:41→20:56)
[2017-03-31] MEDS: carBAMazepine 200 MG TAB PO SCH ×2 (08:42→20:56)
[2017-03-31] MEDS: NICOTINE 21 MG/24 HR PATCH T-DERMAL SCH (09:00)
[2017-03-31] MEDS: REMOVE OLD PATCH T-DERMAL SCH (09:00)
--- NOTE | 2017-03-31 14:08 | HHI.PYPN ---
Subjective Remarks Patient seen and examined. Chart reviewed. Case discussed with nursing staff. On my examination today, the patient continues her pattern of coherent speech for a time before derailing into disorganized thought. She rehearses her version of the narrative of her presentation here but then begins rambling about not taking shells from the ocean, her pet cat who in 1985, our area code (i.e. 386) finally settling on a discussion of hands and feet. No side effects from medications. No physical complaints. Review of Systems ROS Limitations: Psychotic, Poor Historian Except as stated in HPI: all other systems reviewed are Neg Objective Alert: Yes [place]: Person, Place Mood: Calm Affect: Blunted (remains somewhat blunted) Memory Intact: Comment (fair) Hallucinations: Auditory (internally preoccupied) Delusions: No Delusion Type: Other (no delusions) Suicidal: Ideation (No SI) Homicidal: Ideation (No HI) Insight/Judgment Poor Remarks Thought process continues to derail with extended questioning. Grooming and hygiene fair at best. Labs Labs reviewed. Vitals/IOs Vital Signs Date Time Temp Pulse Resp B/P Pulse Ox O2 Delivery O2 Flow Rate FiO2 03/31/17 06:22 97.6 84 16 113/56 97 Intake and Output 03/30/17 03/30/17 03/31/17 08:00 16:00 00:00 Intake Total 240 ml Balance 240 ml Assessment & Plan Problem List: (1) Bipolar disorder ICD Code: F31.9 Assessment & Plan Inadequate response to medication with respect to patient's thought disorganization/psychosis. Reviewing previous medication administration records , it does not appear that the patient has had a trial of an antipsychotic other than Zyprexa within our system. I will augment with low-dose typical Haldol 2 mg twice daily with plans to titrate to effect if well tolerated. Continue other psychotropics as ordered. Continue other medications and care as ordered. Justification for Cont. Inpt. Impairment in self-care outside of the hospital setting. Medication changes in process. High risk for decompensation in a less restrictive environment. [facility] Request HC Surrog/Guard Advoc?: Yes Problem Qualifiers (1) Bipolar disorder: Qualified Code: F31.2 - Bipolar affective disorder, currently manic, severe, with psychotic features Estuardo Mancilla MD Mar 31, 2017 14:08
[2017-03-31 19:19] VITALS: BP 100/55; PULSE 91; RESP 16; TEMP 98.4; O2SAT 95
[2017-03-31] MEDS: clonazePAM 1 MG TAB PO SCH (20:56)
[2017-03-31] MEDS ORDERED: HALOPERIDOL 2 MG TAB PO SCH (21:00)
[2017-04-01 06:02] VITALS: BP 94/62; PULSE 64; RESP 16; TEMP 98.4; O2SAT 96
[2017-04-01] MEDS: buPROPion HCL 75 MG TAB PO SCH ×2 (08:00→12:00)
[2017-04-01] MEDS: carBAMazepine 200 MG TAB PO SCH ×2 (08:35→21:06)
[2017-04-01] MEDS: OLANZapine 10 MG TAB PO SCH ×3 (08:36→21:06)
[2017-04-01] MEDS: REMOVE OLD PATCH T-DERMAL SCH (09:00)
[2017-04-01] MEDS: NICOTINE 21 MG/24 HR PATCH T-DERMAL SCH (09:00)
--- NOTE | 2017-04-01 12:17 | HHI.PYPN ---
Subjective Remarks Patient seen and examined with counselor and nurse. Chart reviewed. Patient refused Haldol. Case discussed with nursing staff. On my examination today, the patient presents as somewhat angry and irritable. She does not believe that she needs additional psychotropic medications. Insight into mental illness generally remains poor. Thought process continues to derail with extended questioning. Some paranoia present particularly directed against her outpatient treatment team. No side effects from medications. No physical complaints. Review of Systems ROS Limitations: Poor Historian Except as stated in HPI: all other systems reviewed are Neg Objective Alert: Yes [place]: Person, Place Mood: Other (more irritable) Affect: Restricted Memory Intact: Comment (fair) Hallucinations: Auditory (remains somewhat internally stimulated) Delusions: Yes Delusion Type: Paranoid Suicidal: Ideation (No SI) Homicidal: Ideation (No HI) Insight/Judgment Poor Remarks No motor abnormalities noted. Labs Labs reviewed. Vitals/IOs Vital Signs Date Time Temp Pulse Resp B/P Pulse Ox O2 Delivery O2 Flow Rate FiO2 04/01/17 06:02 98.4 64 16 94/62 96 Intake and Output 03/31/17 03/31/17 04/01/17 08:00 16:00 00:00 Intake Total 440 ml 440 ml Balance 440 ml 440 ml Assessment & Plan Problem List: (1) Bipolar disorder ICD Code: F31.9 Assessment & Plan Add IM backup option for patient's Haldol. Continue other psychotropics as ordered. Continue other medications and care as ordered. Justification for Cont. Inpt. Impairment in self-care, particularly outside of the hospital setting. Medication changes in process. High risk for decompensation in a less restrictive environment Discharge Planning [facility] referral. Request HC Surrog/Guard Advoc?: Yes Problem Qualifiers (1) Bipolar disorder: Qualified Code: F31.2 - Bipolar affective disorder, currently manic, severe, with psychotic features Estuardo Mancilla MD Apr 01, 2017 12:17
[2017-04-01] MEDS ORDERED: HALOPERIDOL LACTATE 5 MG/ML AMP IM PRN (14:15)
[2017-04-01 18:28] VITALS: BP 117/55; PULSE 93; RESP 18; TEMP 98.5; O2SAT 100
[2017-04-01] MEDS: HALOPERIDOL 2 MG TAB PO SCH (21:00)
[2017-04-01] MEDS: clonazePAM 1 MG TAB PO SCH (21:07)
[2017-04-02 05:43] VITALS: BP 95/55; PULSE 64; RESP 18; TEMP 97.4; O2SAT 99
[2017-04-02] MEDS: NICOTINE 21 MG/24 HR PATCH T-DERMAL SCH (08:35)
[2017-04-02] MEDS: REMOVE OLD PATCH T-DERMAL SCH (08:35)
[2017-04-02] MEDS: OLANZapine 10 MG TAB PO SCH ×3 (08:35→21:50)
[2017-04-02] MEDS: buPROPion HCL 75 MG TAB PO SCH ×2 (08:35→12:28)
[2017-04-02] MEDS: HALOPERIDOL 2 MG TAB PO SCH ×2 (08:35→21:49)
[2017-04-02] MEDS: carBAMazepine 200 MG TAB PO SCH ×2 (08:35→21:50)
--- NOTE | 2017-04-02 12:25 | HHI.PYPN ---
Subjective Remarks Patient was seen and case discussed with nursing. She was asked about delusional statement she made to nursing and patient became irritable and defensive. She told nursing she needs to urinate in the ocean to keep it from receding. His compliant with medications. Continues to have poor insight. Says that she is sleeping well. Objective Alert: Yes [place]: Person, Place Mood: Angry Affect: Blunted Memory Intact: Comment (fair) Hallucinations: Auditory (remains somewhat internally stimulated) Delusions: Yes Delusion Type: Paranoid (she needs to urinate in the ocean) Suicidal: Ideation (No SI) Homicidal: Ideation (No HI) Insight/Judgment Poor Vitals/IOs Vital Signs Date Time Temp Pulse Resp B/P Pulse Ox O2 Delivery O2 Flow Rate FiO2 04/02/17 05:43 97.4 64 18 95/55 99 Assessment & Plan Problem List: (1) Bipolar disorder ICD Code: F31.9 Assessment & Plan Continue current treatment plan Justification for Cont. Inpt. Patient will decompensate in a less restrictive setting Request HC Surrog/Guard Advoc?: Yes Problem Qualifiers (1) Bipolar disorder: Qualified Code: F31.2 - Bipolar affective disorder, currently manic, severe, with psychotic features Apollo Hope DO Apr 02, 2017 12:25
[2017-04-02 18:12] VITALS: BP 105/67; PULSE 82; RESP 16; TEMP 98.1; O2SAT 97
[2017-04-02] MEDS: clonazePAM 1 MG TAB PO SCH (21:50)
[2017-04-03 06:21] VITALS: BP 99/56; PULSE 90; RESP 16; TEMP 97.8; O2SAT 99
[2017-04-03] MEDS: carBAMazepine 200 MG TAB PO SCH ×2 (08:43→20:44)
[2017-04-03] MEDS: OLANZapine 10 MG TAB PO SCH ×3 (08:43→20:44)
[2017-04-03] MEDS: HALOPERIDOL 2 MG TAB PO SCH ×2 (08:43→20:44)
[2017-04-03] MEDS: buPROPion HCL 75 MG TAB PO SCH ×2 (08:46→12:21)
[2017-04-03] MEDS: REMOVE OLD PATCH T-DERMAL SCH (08:49)
[2017-04-03] MEDS: NICOTINE 21 MG/24 HR PATCH T-DERMAL SCH (08:49)
--- NOTE | 2017-04-03 15:31 | HHI.PYPN ---
Subjective Remarks Patient was seen and case discussed with nursing. Patient remains tangential but less so compared to yesterday. No specific delusions elicited today. Patient's continues to be somewhat elevated and hyperverbal. She is compliant with her medications well on the unit. Denies auditory visual hallucinations Objective Alert: Yes [place]: Person, Place Mood: Calm Affect: Labile Memory Intact: Comment (fair) Hallucinations: Auditory (remains somewhat internally stimulated) Delusions: Yes Delusion Type: Paranoid (none elicited today) Suicidal: Ideation (No SI) Homicidal: Ideation (No HI) Insight/Judgment Poor Vitals/IOs Vital Signs Date Time Temp Pulse Resp B/P Pulse Ox O2 Delivery O2 Flow Rate FiO2 04/03/17 06:21 97.8 90 16 99/56 99 Assessment & Plan Problem List: (1) Bipolar disorder ICD Code: F31.9 Assessment & Plan Continue current treatment plan Justification for Cont. Inpt. Patient will decompensate in a less restrictive setting Request HC Surrog/Guard Advoc?: Yes Problem Qualifiers (1) Bipolar disorder: Qualified Code: F31.2 - Bipolar affective disorder, currently manic, severe, with psychotic features Apollo Hope DO Apr 03, 2017 15:31
[2017-04-03 18:13] VITALS: BP 109/81; PULSE 78; RESP 17; TEMP 98.4; O2SAT 97
[2017-04-03] MEDS: clonazePAM 1 MG TAB PO SCH (20:44)
[2017-04-04 06:13] VITALS: BP 91/55; PULSE 85; RESP 16; TEMP 97.2; O2SAT 98
[2017-04-04] MEDS: buPROPion HCL 75 MG TAB PO SCH ×2 (08:00→12:42)
[2017-04-04] MEDS: HALOPERIDOL 2 MG TAB PO SCH ×2 (09:00→21:00)
[2017-04-04] MEDS: OLANZapine 10 MG TAB PO SCH ×3 (09:00→21:30)
[2017-04-04] MEDS: NICOTINE 21 MG/24 HR PATCH T-DERMAL SCH (09:00)
[2017-04-04] MEDS: carBAMazepine 200 MG TAB PO SCH ×2 (09:00→21:30)
[2017-04-04] MEDS: REMOVE OLD PATCH T-DERMAL SCH (09:00)
--- NOTE | 2017-04-04 11:07 | HHI.PYPN ---
Subjective Remarks Patient seen and examined with nurse. Chart reviewed. Case discussed with nursing staff who reports that the patient remains fairly disorganized and rambling. On my examination today, and as in previous encounters with the patient, she has initially able to maintain some degree of linearity in her thought, but this fairly rapidly derails into significant disorganization and loosening of associations. For example, the patient rambles about a [employer], moving from there to a discussion of a psychiatrist she knew several years ago, then to qualifyor, then to [employer], and finally to noting an old scar on her finger. Affect a little more dysphoric and irritable today. No side effects from medications. No physical complaints. Review of Systems ROS Limitations: Psychotic, Poor Historian Except as stated in HPI: all other systems reviewed are Neg Objective Alert: Yes [place]: Person, Place Mood: Anxious Affect: Restricted (irritable, dysphoric) Memory Intact: Comment (fair) Hallucinations: Other (No AVH) Delusions: No Delusion Type: Other (No delusions) Suicidal: Ideation (No SI) Homicidal: Ideation (No HI) Insight/Judgment Poor Remarks TP continues to derail after only a brief conversation. Speech rambling. No motoric abnormalities noted. Labs Labs reviewed. Vitals/IOs Vital Signs Date Time Temp Pulse Resp B/P Pulse Ox O2 Delivery O2 Flow Rate FiO2 04/04/17 06:13 97.2 85 16 91/55 98 Assessment & Plan Problem List: (1) Bipolar disorder ICD Code: F31.9 Assessment & Plan Titrate Haldol to 5mg BID to target ongoing issues with thought disorganization. Continue other psychotropics as ordered. Continue to monitor on the inpatient unit. Continue other medications and care as ordered. Justification for Cont. Inpt. Impairment in self-care particularly outside of the hospital setting. Medication changes in process. High risk for decompensation in a less restrictive environment. [facility]; patient's condition remains too decompensated at this time to consider diverting from this plan. Request HC Surrog/Guard Advoc?: Yes Problem Qualifiers (1) Bipolar disorder: Qualified Code: F31.2 - Bipolar affective disorder, currently manic, severe, with psychotic features Estuardo Mancilla MD Apr 04, 2017 11:07
[2017-04-04] MEDS ORDERED: HALOPERIDOL LACTATE 5 MG/ML AMP IM PRN (12:15)
[2017-04-04] MEDS: clonazePAM 1 MG TAB PO SCH (21:30)
[2017-04-05 06:09] VITALS: BP 95/56; PULSE 74; RESP 18; TEMP 98; O2SAT 95
[2017-04-05] MEDS: HALOPERIDOL 2 MG TAB PO SCH ×2 (08:38→21:28)
[2017-04-05] MEDS: buPROPion HCL 75 MG TAB PO SCH ×2 (08:38→12:00)
[2017-04-05] MEDS: carBAMazepine 200 MG TAB PO SCH ×2 (08:38→21:28)
[2017-04-05] MEDS: OLANZapine 10 MG TAB PO SCH ×3 (08:38→21:28)
[2017-04-05] MEDS: NICOTINE 21 MG/24 HR PATCH T-DERMAL SCH (08:42)
[2017-04-05] MEDS: REMOVE OLD PATCH T-DERMAL SCH (08:42)
--- NOTE | 2017-04-05 12:22 | PD.TTN ---
Present for Treatment Team Treatment Team Staff: Provider, Nurse, Psych Therapist, Occupational Therapist , Other Patient Problems 1. Discharge planning 2. Medication compliance 3. Knowledge deficit 4. Lack of coping skills Progress Toward Goals Provider Input: Patient's medication medication has been adjusted to target her behavior and mood. Nurse Input: Per nurse patient is taking her medication; however she require coaching and prompting with redirection. Patient continues to be seclusive to self, and is visible for meals, completes her ALD's. Psych Therapist Input: Per [facility] patient is #19 and in review. Occupational Therapist Input: Per OT patient refuses group participation, spends most of her day in her room, visible only for meals and medication with no peer interaction. Carlyn Escobedo [facility] Apr 05, 2017 12:22
--- NOTE | 2017-04-05 12:59 | HHI.PYPN ---
Subjective Remarks Patient seen and examined. Chart reviewed. Case discussed with nursing staff, counselor and occupational therapist in treatment team. Occupational therapist notes that the patient is not coming out for groups. On my examination today, the patient remains somewhat disorganized. Her insight into her mental illness is poor. She denies side effects from medications. No physical complaints. Review of Systems ROS Limitations: Psychotic, Poor Historian Except as stated in HPI: all other systems reviewed are Neg Objective Alert: Yes [place]: Person, Place Mood: Calm Affect: Blunted Memory Intact: Comment (fair) Hallucinations: Other (None) Delusions: No Delusion Type: Other (No delusions) Suicidal: Ideation (No SI voiced) Homicidal: Ideation (No HI voiced) Insight/Judgment Poor Remarks No motor abnormalities noted. Thought process disorganized. Speech rambling. Labs Labs reviewed. Vitals/IOs Vital Signs Date Time Temp Pulse Resp B/P Pulse Ox O2 Delivery O2 Flow Rate FiO2 04/05/17 06:09 98.0 74 18 95/56 95 Intake and Output 04/04/17 04/04/17 04/05/17 08:00 16:00 00:00 Intake Total 480 ml Balance 480 ml Weights reviewed. Stable since admission. Assessment & Plan Problem List: (1) Bipolar disorder ICD Code: F31.9 Assessment & Plan Continue Haldol as ordered for now. May consider further titration of this agent if needed to target psychosis. Continue other psychotropics as ordered. Continue to monitor on the inpatient unit. Continue other medications and care as ordered. Justification for Cont. Inpt. Impairment in self-care outside of the hospital. High-Risk for decompensation in a less restrictive environment. Discharge Planning [facility] psychiatric hospital referral. Case discussed with treatment team, no viable alternative disposition plan at this time. Request HC Surrog/Guard Advoc?: Yes Problem Qualifiers (1) Bipolar disorder: Qualified Code: F31.2 - Bipolar affective disorder, currently manic, severe, with psychotic features Estuardo Mancilla MD Apr 05, 2017 12:58
[2017-04-05] MEDS: clonazePAM 1 MG TAB PO SCH (21:28)
[2017-04-06 06:22] VITALS: BP 87/53; PULSE 70; RESP 18; TEMP 97.6; O2SAT 98
[2017-04-06] MEDS: REMOVE OLD PATCH T-DERMAL SCH (09:00)
[2017-04-06] MEDS: OLANZapine 10 MG TAB PO SCH ×3 (09:32→21:08)
[2017-04-06] MEDS: NICOTINE 21 MG/24 HR PATCH T-DERMAL SCH (09:33)
[2017-04-06] MEDS: HALOPERIDOL 2 MG TAB PO SCH ×2 (09:33→21:08)
[2017-04-06] MEDS: carBAMazepine 200 MG TAB PO SCH ×2 (09:33→21:08)
[2017-04-06] MEDS: buPROPion HCL 75 MG TAB PO SCH ×2 (09:35→12:44)
--- NOTE | 2017-04-06 12:31 | HHI.PYPN ---
Subjective Remarks Patient seen and examined with nurses. Chart reviewed. Case discussed with nursing staff. On my examination today, the patient continues to derail with even modestly extended interview. When we are discussing her weight she derails into a discussion of an old boyfriend, then to a in adolescence, then to the [employer], then to something called "pathopians, " then to a "snake school" and finally the patient tells me that the sea levels are receding because she needs to "piss in the ocean!" Denies side effects from medications. No physical complaints. Review of Systems ROS Limitations: Psychotic, Poor Historian Except as stated in HPI: all other systems reviewed are Neg Objective Alert: Yes [place]: Person, Place Mood: Calm Affect: Blunted (remains blunted) Memory Intact: Comment (fair) Hallucinations: Other (No AVH) Delusions: No Delusion Type: Other (None) Suicidal: Ideation (No SI) Homicidal: Ideation (No HI) Insight/Judgment Poor Remarks Ongoing significant issues with thought disorganization. No motoric abnormalities noted. Labs Labs reviewed. Vitals/IOs Vital Signs Date Time Temp Pulse Resp B/P Pulse Ox O2 Delivery O2 Flow Rate FiO2 04/06/17 06:22 97.6 70 18 87/53 98 Intake and Output 04/05/17 04/05/17 04/06/17 08:00 16:00 00:00 Intake Total 240 ml Balance 240 ml Assessment & Plan Problem List: (1) Bipolar disorder ICD Code: F31.9 Assessment & Plan Patient's thought disorganization seems not at all improved with addition of Haldol. I will continue the Haldol as ordered for now and perhaps consider a modest up reported dose adjustment within the next day or 2 to try to derive some benefit, but if this is unsuccessful I think we may need to consider an alternative strategy. Continue other psychotropics as ordered. Continue to monitor on the inpatient unit. Continue other medications and care as ordered. Justification for Cont. Inpt. Impairment in reality construction. Impairment in self-care, particularly outside of the hospital setting. High risk for decompensation in a less restrictive environment. Discharge Planning [facility] referral Request HC Surrog/Guard Advoc?: Yes Problem Qualifiers (1) Bipolar disorder: Qualified Code: F31.2 - Bipolar affective disorder, currently manic, severe, with psychotic features Estuardo Mancilla MD Apr 06, 2017 12:31
[2017-04-06 18:05] VITALS: BP 120/59; PULSE 82; RESP 18; TEMP 97.8; O2SAT 95
[2017-04-06 18:09] VITALS: BP 102/62; PULSE 82; RESP 18; TEMP 97.8; O2SAT 97
[2017-04-06] MEDS: clonazePAM 1 MG TAB PO SCH (21:00)
[2017-04-07 05:35] VITALS: BP 99/54; PULSE 75; RESP 16; TEMP 97.9; O2SAT 100
[2017-04-07] MEDS: REMOVE OLD PATCH T-DERMAL SCH (09:00)
[2017-04-07] MEDS: buPROPion HCL 75 MG TAB PO SCH ×2 (09:04→12:00)
[2017-04-07] MEDS: HALOPERIDOL 2 MG TAB PO SCH ×2 (09:04→21:31)
[2017-04-07] MEDS: OLANZapine 10 MG TAB PO SCH ×3 (09:04→21:30)
[2017-04-07] MEDS: carBAMazepine 200 MG TAB PO SCH ×2 (09:04→21:30)
[2017-04-07] MEDS: NICOTINE 21 MG/24 HR PATCH T-DERMAL SCH (09:05)
--- NOTE | 2017-04-07 12:20 | HHI.PYPN ---
Subjective Remarks Patient seen and examined with nurse. Chart reviewed. Case discussed with nursing staff. Patient noted to be somewhat more organized today. On my examination today, the patient presents as initially fairly linear but derails after extended conversation as in previous encounters. She is resistant to taking additional psychotropic medication. No AVH. No SI or HI. No side effects from medications. No physical complaints. Review of Systems ROS Limitations: Psychotic, Poor Historian Except as stated in HPI: all other systems reviewed are Neg Objective Alert: Yes [place]: Person, Place Mood: Calm Affect: Blunted Memory Intact: Comment (remains fair on clinical exam) Hallucinations: Other (No AVH) Delusions: No Delusion Type: Other (no gabby delusions) Suicidal: Ideation (no suicidal ideation) Homicidal: Ideation (no homicidal ideation) Insight/Judgment Poor Remarks No motoric abnormalities noted. Thought process derails with extended questioning. Labs Labs reviewed. Vitals/IOs Vital Signs Date Time Temp Pulse Resp B/P Pulse Ox O2 Delivery O2 Flow Rate FiO2 04/07/17 05:35 97.9 75 16 99/54 100 Intake and Output 04/06/17 04/06/17 04/07/17 08:00 16:00 00:00 Intake Total 960 ml 720 ml Balance 960 ml 720 ml Assessment & Plan Problem List: (1) Bipolar disorder ICD Code: F31.9 Assessment & Plan Continue Haldol and other psychotropics as ordered. Check and updated set of basic laboratories in the morning. Continue to monitor on the inpatient unit. Continue other medications and care as ordered. Justification for Cont. Inpt. Impairment in self-care particularly outside of the hospital setting. High risk for decompensation in a less restrictive setting. Discharge Planning [facility] psychiatric hospital referral. Request HC Surrog/Guard Advoc?: Yes Problem Qualifiers (1) Bipolar disorder: Qualified Code: F31.2 - Bipolar affective disorder, currently manic, severe, with psychotic features Estuardo Mancilla MD Apr 07, 2017 12:20
[2017-04-07 16:08] VITALS: BP 114/57; PULSE 83; RESP 17; TEMP 98.6; O2SAT 99
[2017-04-07] MEDS: clonazePAM 1 MG TAB PO SCH (21:30)
[2017-04-08 05:33] VITALS: BP 92/53; PULSE 72; RESP 17; TEMP 97.7; O2SAT 99
[2017-04-08] MEDS: REMOVE OLD PATCH T-DERMAL SCH (09:00)
[2017-04-08] MEDS: NICOTINE 21 MG/24 HR PATCH T-DERMAL SCH (09:00)
[2017-04-08] MEDS: carBAMazepine 200 MG TAB PO SCH ×2 (09:29→20:59)
[2017-04-08] MEDS: HALOPERIDOL 2 MG TAB PO SCH ×2 (09:29→21:00)
[2017-04-08] MEDS: buPROPion HCL 75 MG TAB PO SCH ×2 (09:29→12:33)
[2017-04-08] MEDS: OLANZapine 10 MG TAB PO SCH ×3 (09:29→21:00)
[2017-04-08 10:13] LABS: BASOPHIL % 0.7 % (0.0-2.0); EOSINOPHIL # 0.2 TH/MM3 (0-0.4); EOSINOPHIL % 3.2 % (0.0-4.0); HEMATOCRIT 37.1 % (35.0-46.0); HEMO FLAGS DIFF FINAL; LYMPH % 26.9 % (9.0-44.0); LYMPHOCYTE # 1.4 TH/MM3 (1.0-4.8); MEAN CELL VOLUME 99.6 FL (80.0-100.0); MEAN CORPUSCULAR HEMOGLOBIN 32.8 PG (27.0-34.0); MONO % 8.6 % (0.0-8.0); NEUT % 60.6 % (16.0-70.0); PLATELET COUNT 231 TH/MM3 (150-450); RED BLOOD COUNT 3.73 MIL/MM3 (4.00-5.30); RED CELL DISTRIBUTION WIDTH 13.4 % (11.6-17.2)
[2017-04-08 10:39] LABS: ANION GAP 9 MEQ/L (5-15); AST (GOT) 17 U/L (15-37); BICARBONATE 26.5 MEQ/L (21.0-32.0); BLOOD UREA NITROGEN 10 MG/DL (7-18); CHLORIDE 99 MEQ/L (98-107); GLOMERULAR FILTRATION RATE 79 ML/MIN (>89); POTASSIUM 4.2 MEQ/L (3.5-5.1); SODIUM (NA) 134 MEQ/L (136-145)
[2017-04-08 10:42] LABS: ALKALINE PHOSPHATASE 103 U/L (45-117); ALT (GPT) 25 U/L (10-53); TOTAL BILIRUBIN ADULT 0.2 MG/DL (0.2-1.0)
--- NOTE | 2017-04-08 11:34 | HHI.PYPN ---
Subjective Remarks Patient seen and examined with counselor. Chart reviewed. Case discussed with nursing staff who reports patient is more or less unchanged today. On my examination today, the patient is able to remain fairly organized throughout the majority of our conversation. She says that she has spoken with her outpatient CM, Fredi. She notes that she has been "showering faithfully." Some extraneous details in conversation but generally organized as noted above. No side effects from medications. No physical complaints. Review of Systems ROS Limitations: Poor Historian Except as stated in HPI: all other systems reviewed are Neg Objective Alert: Yes [place]: Person, Place Mood: Calm Affect: Appropriate Memory Intact: Comment (fair) Hallucinations: Other (None) Delusions: No Delusion Type: Other (No delusions) Suicidal: Ideation (No SI) Homicidal: Ideation (No HI) Insight/Judgment Poor Remarks No motoric abnormalities noted Labs Test 04/08/17 08:23 White Blood Count 5.0 TH/MM3 Red Blood Count 3.73 MIL/MM3 Hemoglobin 12.2 GM/DL Hematocrit 37.1 % Mean Corpuscular Volume 99.6 FL Mean Corpuscular Hemoglobin 32.8 PG Mean Corpuscular Hemoglobin 33.0 % Concent Red Cell Distribution Width 13.4 % Platelet Count 231 TH/MM3 Mean Platelet Volume 8.6 FL Neutrophils (%) (Auto) 60.6 % Lymphocytes (%) (Auto) 26.9 % Monocytes (%) (Auto) 8.6 % Eosinophils (%) (Auto) 3.2 % Basophils (%) (Auto) 0.7 % Neutrophils # (Auto) 3.0 TH/MM3 Lymphocytes # (Auto) 1.4 TH/MM3 Monocytes # (Auto) 0.4 TH/MM3 Eosinophils # (Auto) 0.2 TH/MM3 Basophils # (Auto) 0.0 TH/MM3 CBC Comment DIFF FINAL Differential Comment Sodium Level 134 MEQ/L Potassium Level 4.2 MEQ/L Chloride Level 99 MEQ/L Carbon Dioxide Level 26.5 MEQ/L Anion Gap 9 MEQ/L Blood Urea Nitrogen 10 MG/DL Creatinine 0.76 MG/DL Estimat Glomerular Filtration 79 ML/MIN Rate Random Glucose 79 MG/DL Calcium Level 8.8 MG/DL Total Bilirubin 0.2 MG/DL Aspartate Amino Transf 17 U/L (AST/SGOT) Alanine Aminotransferase 25 U/L (ALT/SGPT) Alkaline Phosphatase 103 U/L Total Protein 6.9 GM/DL Albumin 3.6 GM/DL Carbamazepine (Tegretol) Level 6.8 MCG/ML Labs reviewed. CBC unremarkable. CMP reveals mild hyponatremia, stable decreased GFR. Carbamazepine level somewhat lower but still within the therapeutic range, ?autoinduction? Vitals/IOs Vital Signs Date Time Temp Pulse Resp B/P Pulse Ox O2 Delivery O2 Flow Rate FiO2 04/08/17 05:33 97.7 72 17 92/53 99 Assessment & Plan Problem List: (1) Bipolar disorder ICD Code: F31.9 Assessment & Plan Continue Haldol/Zyprexa as ordered. Continue CBZ as ordered. Check sodium level Tuesday morning to ensure that this is not decreasing. Continue to monitor on the inpatient unit. Continue other medications and care as ordered. Justification for Cont. Inpt. High risk for decompensation in a less restrictive environment. Discharge Planning I have asked the counselor to reach out to patient's outpatient renal case manager. If the patient remains in current state, perhaps we could consider an alternative disposition plan to state psychiatric hospitalization with the assistance of her outpatient treatment team. Request HC Surrog/Guard Advoc?: Yes Problem Qualifiers (1) Bipolar disorder: Qualified Code: F31.2 - Bipolar affective disorder, currently manic, severe, with psychotic features Estuardo Mancilla MD Apr 08, 2017 11:34
[2017-04-08 19:28] VITALS: BP 91/56; PULSE 71; RESP 16; TEMP 98.6; O2SAT 100
[2017-04-08] MEDS: clonazePAM 1 MG TAB PO SCH (21:00)
[2017-04-09 06:23] VITALS: BP 119/59; PULSE 72; RESP 18; TEMP 98; O2SAT 98
[2017-04-09] MEDS: OLANZapine 10 MG TAB PO SCH ×3 (08:39→20:53)
[2017-04-09] MEDS: HALOPERIDOL 2 MG TAB PO SCH ×2 (08:39→20:53)
[2017-04-09] MEDS: carBAMazepine 200 MG TAB PO SCH ×2 (08:40→20:53)
[2017-04-09] MEDS: buPROPion HCL 75 MG TAB PO SCH ×2 (08:42→12:11)
[2017-04-09] MEDS: NICOTINE 21 MG/24 HR PATCH T-DERMAL SCH (09:00)
[2017-04-09] MEDS: REMOVE OLD PATCH T-DERMAL SCH (09:00)
--- NOTE | 2017-04-09 15:23 | HHI.PYPN ---
Subjective Remarks Patient was seen and case discussed with nursing. Nursing notes an improvement in manic behavior however myself she remains hyperverbal and perseverative. Has a fixed delusion that she is here because of fake police that stole her disability paykevon. Remains seclusive to her room. Behaving well on the unit Objective Alert: Yes [place]: Person, Place Mood: Calm Affect: Other (perseverative) Memory Intact: Comment (fair) Hallucinations: Other (None) Delusions: No Delusion Type: Other (No delusions) Suicidal: Ideation (No SI) Homicidal: Ideation (No HI) Insight/Judgment Poor Vitals/IOs Vital Signs Date Time Temp Pulse Resp B/P Pulse Ox O2 Delivery O2 Flow Rate FiO2 04/09/17 06:23 98.0 72 18 119/59 98 Intake and Output 04/08/17 04/08/17 04/09/17 08:00 16:00 00:00 Intake Total 240 ml Balance 240 ml Assessment & Plan Problem List: (1) Bipolar disorder ICD Code: F31.9 Assessment & Plan Continue current treatment plan Justification for Cont. Inpt. Patient will decompensate in a less restrictive setting Request HC Surrog/Guard Advoc?: Yes Problem Qualifiers (1) Bipolar disorder: Qualified Code: F31.2 - Bipolar affective disorder, currently manic, severe, with psychotic features Apollo Hope DO Apr 09, 2017 15:23
[2017-04-09 18:00] VITALS: BP 105/55; PULSE 87; RESP 18; TEMP 98.2
[2017-04-09] MEDS: clonazePAM 1 MG TAB PO SCH (20:52)
[2017-04-10 05:55] VITALS: BP 87/51; PULSE 78; RESP 18; TEMP 98.7; O2SAT 98
[2017-04-10] MEDS: carBAMazepine 200 MG TAB PO SCH ×2 (08:25→21:14)
[2017-04-10] MEDS: HALOPERIDOL 2 MG TAB PO SCH ×2 (08:25→21:14)
[2017-04-10] MEDS: OLANZapine 10 MG TAB PO SCH ×3 (08:25→21:14)
[2017-04-10] MEDS: NICOTINE 21 MG/24 HR PATCH T-DERMAL SCH (08:25)
[2017-04-10] MEDS: REMOVE OLD PATCH T-DERMAL SCH (08:25)
[2017-04-10] MEDS: buPROPion HCL 75 MG TAB PO SCH ×2 (08:27→12:40)
--- NOTE | 2017-04-10 15:35 | HHI.PYPN ---
Subjective Remarks Patient was seen and case discussed with nursing. Patient had a low blood pressure reading in the computer and we will start getting orthostatics along with vitals every 6 hours. She remains very disorganized and perseverative. She presents well until she is questioned about her delusion of police booking officer stealing her disability check. After that she becomes hyperverbal with flight of ideas and follows me after the interview to continues to explain her story. Denies auditory visual hallucinations Objective Alert: Yes [place]: Person, Place Mood: Calm Affect: Other (perseverative) Memory Intact: Comment (fair) Hallucinations: Other (None) Delusions: No Delusion Type: Other (No delusions) Suicidal: Ideation (No SI) Homicidal: Ideation (No HI) Insight/Judgment Poor Vitals/IOs Vital Signs Date Time Temp Pulse Resp B/P Pulse Ox O2 Delivery O2 Flow Rate FiO2 04/10/17 05:55 98.7 78 18 87/51 98 Assessment & Plan Problem List: (1) Bipolar disorder ICD Code: F31.9 Assessment & Plan Vitals every 6 hours, orthostatics Justification for Cont. Inpt. Patient would decompensate in a less restrictive setting Request HC Surrog/Guard Advoc?: Yes Problem Qualifiers (1) Bipolar disorder: Qualified Code: F31.2 - Bipolar affective disorder, currently manic, severe, with psychotic features Apollo Hope DO Apr 10, 2017 15:35
[2017-04-10 15:48] VITALS: BP 118/58; PULSE 79; RESP 18; TEMP 99; O2SAT 97
[2017-04-10 18:50] VITALS: BP_SYST 114; BP_SYST 115; BP_SYST 118; BP_DIAS 64; BP_DIAS 67; BP_DIAS 68
[2017-04-10] MEDS: clonazePAM 1 MG TAB PO SCH (21:13)
[2017-04-11 05:58] VITALS: BP_SYST 95; BP_SYST 98; BP_DIAS 53; BP_DIAS 55; PULSE 81; RESP 17; TEMP 98.6; O2SAT 100
[2017-04-11] MEDS: carBAMazepine 200 MG TAB PO SCH ×2 (08:47→21:30)
[2017-04-11] MEDS: HALOPERIDOL 2 MG TAB PO SCH ×2 (08:47→21:30)
[2017-04-11] MEDS: NICOTINE 21 MG/24 HR PATCH T-DERMAL SCH (08:47)
[2017-04-11] MEDS: buPROPion HCL 75 MG TAB PO SCH ×2 (08:47→12:00)
[2017-04-11] MEDS: OLANZapine 10 MG TAB PO SCH ×3 (08:47→21:30)
[2017-04-11] MEDS: REMOVE OLD PATCH T-DERMAL SCH (08:48)
--- NOTE | 2017-04-11 10:35 | HHI.PYPN ---
Subjective Remarks Patient seen and examined with counselor and nurse. Chart reviewed. Case discussed with nurse who reports that the patient is somewhat clearer thinking. On my examination today, the patient tells me that she is trying to include more salt in her diet. She is apparently alluding to the hyponatremia that she was found to have today. She insists that this is due to excessive water intake , which she says is related to her efforts to manage constipation. I have recommended alternative fluids with electrolytes like Gatorade and have offered to institute a bowel regimen. Some ongoing thought disorganization. Denies side effects from medications. No physical complaints. Review of Systems ROS Limitations: Poor Historian Except as stated in HPI: all other systems reviewed are Neg Objective Alert: Yes [place]: Person, Place Mood: Anxious Affect: Blunted Memory Intact: Comment (fair) Hallucinations: Other (no AVH) Delusions: No Delusion Type: Other (no delusional material) Suicidal: Ideation (No SI) Homicidal: Ideation (No HI) Insight/Judgment Poor Remarks No abnormal motor movements noted. Thought process somewhat perseverative with occasional episodes of disorganization. Speech somewhat rambling. Labs Test 04/10/17 15:47 Sodium Level 126 MEQ/L Labs reviewed. Hyponatremia noted. Vitals/IOs Vital Signs Date Time Temp Pulse Resp B/P Pulse Ox O2 Delivery O2 Flow Rate FiO2 04/11/17 05:58 98.6 81 17 98/55 100 95/53 Assessment & Plan Problem List: (1) Bipolar disorder ICD Code: F31.9 Assessment & Plan Continue current psychotropics as ordered. Hyponatremia may be related to excessive water consumption but also may be related to antipsychotic medications. I will recheck a BMP now and consult the hospitalist if sodium level was not improved. I will order Dulcolax as needed if the patient does not produce a bowel movement in 48 hours. Continue to monitor on the inpatient unit. Continue other medications and care as ordered. Justification for Cont. Inpt. Complicating conditions. High risk for decompensation in a less restrictive environment. Discharge Planning [facility] referral. Patient is #[facility] on the [facility] list. Request HC Surrog/Guard Advoc?: Yes Problem Qualifiers (1) Bipolar disorder: Qualified Code: F31.2 - Bipolar affective disorder, currently manic, severe, with psychotic features Estuardo Mancilla MD Apr 11, 2017 10:35
[2017-04-11] MEDS ORDERED: BISACODYL EC 5 MG TABEC PO PRN (14:30)
[2017-04-11 18:00] VITALS: BP 109/66; PULSE 78; RESP 17; TEMP 98.3; O2SAT 100
[2017-04-11] MEDS: clonazePAM 1 MG TAB PO SCH (21:30)
[2017-04-11 21:47] VITALS: BP_SYST 110; BP_SYST 117; BP_DIAS 65; BP_DIAS 66; PULSE 78; RESP 18; TEMP 98.2; O2SAT 98
[2017-04-12 06:22] VITALS: BP 89/53; PULSE 82; RESP 18; TEMP 98; O2SAT 97
[2017-04-12] MEDS: buPROPion HCL 75 MG TAB PO SCH ×2 (08:00→11:53)
[2017-04-12] MEDS: carBAMazepine 200 MG TAB PO SCH ×2 (08:53→21:18)
[2017-04-12] MEDS: HALOPERIDOL 2 MG TAB PO SCH (08:53)
[2017-04-12] MEDS: OLANZapine 10 MG TAB PO SCH ×3 (08:53→21:18)
[2017-04-12] MEDS: NICOTINE 21 MG/24 HR PATCH T-DERMAL SCH (08:54)
[2017-04-12] MEDS: REMOVE OLD PATCH T-DERMAL SCH (08:54)
[2017-04-12 10:27] LABS: BICARBONATE 30.1 MEQ/L (21.0-32.0); POTASSIUM 3.7 MEQ/L (3.5-5.1)
--- NOTE | 2017-04-12 12:19 | HHI.PYPN ---
Subjective Remarks Patient seen and examined with counselor. Chart reviewed. Case discussed with nursing staff and in treatment team. On my examination today, the patient is pleased because she has won twice at [employer]. She has gotten a small volleyball and speaks at some length about how she hopes to play this game with others. Hyperverbal, as in previous interactions. TP remains disorganized with extended questioning. Insight into mental illness remains poor. No side effects from medications. No physical complaints. Review of Systems ROS Limitations: Poor Historian Except as stated in HPI: all other systems reviewed are Neg Objective Alert: Yes [place]: Person, Place Mood: Anxious Affect: Blunted (remains somewhat blunted) Memory Intact: Comment (fair) Hallucinations: Other (no AVH) Delusions: No Delusion Type: Other (no delusional material) Suicidal: Ideation (No SI) Homicidal: Ideation (No HI) Insight/Judgment Poor Remarks Thought process remains disorganized especially with extended questioning. Grooming and hygiene fair. Labs Test 04/12/17 09:11 Sodium Level 139 MEQ/L Potassium Level 3.7 MEQ/L Chloride Level 102 MEQ/L Carbon Dioxide Level 30.1 MEQ/L Anion Gap 7 MEQ/L Blood Urea Nitrogen 11 MG/DL Creatinine 0.78 MG/DL Estimat Glomerular Filtration 77 ML/MIN Rate Random Glucose 75 MG/DL Calcium Level 9.0 MG/DL Labs reviewed. Sodium level improved. Vitals/IOs Vital Signs Date Time Temp Pulse Resp B/P Pulse Ox O2 Delivery O2 Flow Rate FiO2 04/12/17 06:22 98.0 82 18 89/53 97 Assessment & Plan Problem List: (1) Bipolar disorder ICD Code: F31.9 Assessment & Plan Titrate Haldol to 7.5mg BID to target disorganization. Continue other psychotropic meds as ordered. Continue to monitor on the inpatient unit. Continue other medications and care as ordered. Justification for Cont. Inpt. Medication changes in process. High risk for decompensation in a less restrictive environment. Discharge Planning Pending psychiatric stabilization. Patient remains #19 on the [facility] wait-list. Request HC Surrog/Guard Advoc?: Yes Problem Qualifiers (1) Bipolar disorder: Qualified Code: F31.2 - Bipolar affective disorder, currently manic, severe, with psychotic features Estuardo Mancilla MD Apr 12, 2017 12:19
--- NOTE | 2017-04-12 13:40 | PD.TTN ---
Patient Problems 1. Discharge planning 2. Medication compliance 3. Knowledge deficit 4. Lack of coping skills Progress Toward Goals Provider Input: Dr Mancilla's treatment team met to discuss patient's treatment plan, medication and discharge plan. Patient continues to present with delusional content. Patient's speech is rapid, and disorganized. Psych Therapist Input: Patient presents pleasant, anxious, confused, restless, affect labile. Patient's speech is clear, disorganized with pressured rambling. Patient's tone, rate, and volume is accelerated. Patient denies suicidal and homicidal ideation. Patient is alert to person, place but has poor insight into her situation. [facility] Occupational Therapist Input: Robert DAVIS reports minimal attendence in groups Cheyenne KilgoreRamesh Apr 12, 2017 13:40
[2017-04-12 15:49] VITALS: BP 109/71; PULSE 73; RESP 17; TEMP 98.1; O2SAT 100
[2017-04-12] MEDS ORDERED: HALOPERIDOL LACTATE 5 MG/ML AMP IM PRN (16:15)
[2017-04-12] MEDS ORDERED: PILL SPLITTER OTHER PRN (16:30)
[2017-04-12] MEDS: HALOPERIDOL 5 MG TAB PO SCH (21:18)
[2017-04-12] MEDS: clonazePAM 1 MG TAB PO SCH (21:18)
[2017-04-13 06:02] VITALS: BP 98/59; PULSE 69; RESP 17; TEMP 97.1; O2SAT 94
[2017-04-13] MEDS: buPROPion HCL 75 MG TAB PO SCH ×2 (08:00→12:20)
[2017-04-13] MEDS: carBAMazepine 200 MG TAB PO SCH ×2 (08:34→21:22)
[2017-04-13] MEDS: OLANZapine 10 MG TAB PO SCH ×3 (08:34→21:22)
[2017-04-13] MEDS: REMOVE OLD PATCH T-DERMAL SCH (08:34)
[2017-04-13] MEDS: HALOPERIDOL 5 MG TAB PO SCH ×2 (08:34→21:23)
[2017-04-13] MEDS: NICOTINE 21 MG/24 HR PATCH T-DERMAL SCH (09:00)
--- NOTE | 2017-04-13 15:05 | HHI.PYPN ---
Subjective Remarks Patient seen and examined. Chart reviewed. Case discussed with nursing staff and counselor. On my examination today, the patient says that she is "status quo, pretty boring." He denies side effects from medications. Slept well overnight. Denies suicidal or homicidal ideation. She is reportedly open to visiting with her mother although the 2 have had a fractious relationship in the past. She does derail towards the end of our conversation but this overall seems improved today. Had a bowel movement yesterday she tells me. No physical complaints. Review of Systems ROS Limitations: Poor Historian Except as stated in HPI: all other systems reviewed are Neg Objective Alert: Yes [place]: Person, Place Mood: Calm Affect: Blunted Memory Intact: Comment (fair) Hallucinations: Other (none) Delusions: No Delusion Type: Other (no delusions) Suicidal: Ideation (No SI) Homicidal: Ideation (No HI) Insight/Judgment Poor Remarks No motor abnormalities noted. Thought process gross more disorganized with extended questioning. Grooming and hygiene fair. Labs Labs reviewed. Vitals/IOs Vital Signs Date Time Temp Pulse Resp B/P Pulse Ox O2 Delivery O2 Flow Rate FiO2 04/13/17 06:02 97.1 69 17 98/59 94 Assessment & Plan Problem List: (1) Bipolar disorder ICD Code: F31.9 Assessment & Plan Continue current psychotropics as ordered. Could consider titrating Haldol still further to target thought disorganization. Continue to monitor on the inpatient unit. Continue other medications and care as ordered. Justification for Cont. Inpt. High risk for decompensation in a less restrictive environment Discharge Planning [facility] psychiatric hospital referral. I have asked the counselor to explore alternative disposition plans with patient's outpatient treatment team. Request HC Surrog/Guard Advoc?: Yes Problem Qualifiers (1) Bipolar disorder: Qualified Code: F31.2 - Bipolar affective disorder, currently manic, severe, with psychotic features Estuardo Mancilla MD Apr 13, 2017 15:05
[2017-04-13 16:00] VITALS: BP 92/57; PULSE 74; RESP 18; TEMP 97.8; O2SAT 100
[2017-04-13] MEDS: clonazePAM 1 MG TAB PO SCH (21:22)
[2017-04-14 05:29] VITALS: BP 101/52; PULSE 52; RESP 17; TEMP 97.6; O2SAT 98
[2017-04-14] MEDS: buPROPion HCL 75 MG TAB PO SCH ×2 (08:00→12:00)
[2017-04-14] MEDS: carBAMazepine 200 MG TAB PO SCH ×2 (08:42→21:21)
[2017-04-14] MEDS: HALOPERIDOL 5 MG TAB PO SCH ×2 (08:42→21:21)
[2017-04-14] MEDS: OLANZapine 10 MG TAB PO SCH ×3 (08:42→21:21)
[2017-04-14] MEDS: REMOVE OLD PATCH T-DERMAL SCH (09:00)
[2017-04-14] MEDS: NICOTINE 21 MG/24 HR PATCH T-DERMAL SCH (09:07)
--- NOTE | 2017-04-14 15:31 | HHI.PYPN ---
Subjective Remarks Patient seen and examined. Chart reviewed. Case discussed with nursing staff who reports that the patient is somewhat less intrusive. On my examination today, the patient is fixated on the possibility of placement. She has the initial notice of the [place] act hearing from several weeks ago and seems to believe that this implies that she has to be placed, although I cannot see that it says anything of the sort. She then derails into older material regarding the circumstances of her presentation here, etc. Somewhat difficult to redirect to a more relevant line of discussion. Denies side effects from medications. No physical complaints. Review of Systems ROS Limitations: Poor Historian Except as stated in HPI: all other systems reviewed are Neg Objective Alert: Yes [place]: Person, Place Mood: Calm Affect: Blunted Memory Intact: Comment (remains fair) Hallucinations: Other (no AVH) Delusions: No Delusion Type: Other (no delusions) Suicidal: Ideation (no SI voiced) Homicidal: Ideation (no HI voiced) Insight/Judgment Poor Remarks No abnormal motor movements noted. Thought process remains disorganized. Labs Labs reviewed. Vitals/IOs Vital Signs Date Time Temp Pulse Resp B/P Pulse Ox O2 Delivery O2 Flow Rate FiO2 04/14/17 05:29 97.6 52 17 101/52 98 Assessment & Plan Problem List: (1) Bipolar disorder ICD Code: F31.9 Assessment & Plan Continue Haldol and Zyprexa as ordered. Could consider further titration of Haldol, although it is unclear that it is having much beneficial effect. Continue other psychotropics as ordered. Continue other medications and care as ordered. Justification for Cont. Inpt. High risk for decompensation in a less restrictive environment. [facility] Might consider alternative disposition options as the patient seems to be at a plateau with regards to her symptomatology. Request HC Surrog/Guard Advoc?: Yes Problem Qualifiers (1) Bipolar disorder: Qualified Code: F31.2 - Bipolar affective disorder, currently manic, severe, with psychotic features Estuardo Mancilla MD Apr 14, 2017 15:31
[2017-04-14] MEDS: clonazePAM 1 MG TAB PO SCH (21:21)
[2017-04-15 05:27] VITALS: BP 93/52; PULSE 69; RESP 17; TEMP 96.6; O2SAT 98
[2017-04-15] MEDS: buPROPion HCL 75 MG TAB PO SCH ×2 (08:59→12:18)
[2017-04-15] MEDS: REMOVE OLD PATCH T-DERMAL SCH (09:00)
[2017-04-15] MEDS: carBAMazepine 200 MG TAB PO SCH ×2 (09:00→21:41)
[2017-04-15] MEDS: HALOPERIDOL 5 MG TAB PO SCH ×2 (09:01→21:41)
[2017-04-15] MEDS: OLANZapine 10 MG TAB PO SCH ×3 (09:01→21:41)
[2017-04-15] MEDS: NICOTINE 21 MG/24 HR PATCH T-DERMAL SCH (09:02)
--- NOTE | 2017-04-15 16:26 | HHI.PYPN ---
Subjective Remarks Patient seen and examined. Chart reviewed. Case discussed with nursing staff. Patient has reportedly written a note requesting to be made voluntary. On my examination today, patient reiterates much of the same material she has in the past about the circumstances of her presentation here. Says that she is worried about her mother because she has not been able to get in contact with her. Thought process continues to derail with extended conversation. Denies side effects from medications. No physical complaints. Review of Systems ROS Limitations: Poor Historian Except as stated in HPI: all other systems reviewed are Neg Objective Alert: Yes [place]: Person, Place Mood: Anxious Affect: Blunted Memory Intact: Comment (remains fair) Hallucinations: Other (None) Delusions: No Delusion Type: Other (no delusions) Suicidal: Ideation (no si) Homicidal: Ideation (no hi) Insight/Judgment Poor Remarks Thought process continues to derail with extended questioning. No motor abnormalities noted. Labs Labs reviewed. No new labs. Vitals/IOs Vital Signs Date Time Temp Pulse Resp B/P Pulse Ox O2 Delivery O2 Flow Rate FiO2 04/15/17 05:27 96.6 69 17 93/52 98 Assessment & Plan Problem List: (1) Bipolar disorder ICD Code: F31.9 Assessment & Plan Continue Haldol and other psychotropics as ordered. Continue to monitor on the inpatient unit. Continue other medications and care as ordered. Justification for Cont. Inpt. High risk for decompensation in a less restrictive setting Discharge Planning [facility] referral Request HC Surrog/Guard Advoc?: Yes Problem Qualifiers (1) Bipolar disorder: Qualified Code: F31.2 - Bipolar affective disorder, currently manic, severe, with psychotic features Estuardo Mancilla MD Apr 15, 2017 16:25
[2017-04-15 17:20] VITALS: BP 108/63; PULSE 73; RESP 17; O2SAT 97
[2017-04-15] MEDS: clonazePAM 1 MG TAB PO SCH (21:41)
[2017-04-16 05:37] VITALS: BP 94/65; PULSE 77; TEMP 97.3
[2017-04-16] MEDS: carBAMazepine 200 MG TAB PO SCH ×2 (08:00→21:25)
[2017-04-16] MEDS: OLANZapine 10 MG TAB PO SCH ×3 (08:00→21:25)
[2017-04-16] MEDS: REMOVE OLD PATCH T-DERMAL SCH (08:00)
[2017-04-16] MEDS: HALOPERIDOL 5 MG TAB PO SCH ×2 (08:00→21:25)
[2017-04-16] MEDS: NICOTINE 21 MG/24 HR PATCH T-DERMAL SCH (08:00)
[2017-04-16] MEDS: buPROPion HCL 75 MG TAB PO SCH ×2 (08:00→12:00)
--- NOTE | 2017-04-16 16:48 | HHI.PYPN ---
Subjective Remarks Pt seen and discussed with staff. She has been calm today but continues to write disorganized letters to Dr. Lara daily that state that she is not under a [place] Act.Thought process is remains disorganized but is improving. No aggression or agitation. No SI/HI Objective Alert: Yes [place]: Person, Place Mood: Calm Affect: Restricted Memory Intact: Comment (remains fair) Hallucinations: Other (None) Delusions: No Delusion Type: Other (no delusions) Suicidal: Ideation (no si) Homicidal: Ideation (no hi) Insight/Judgment poor Remarks disorganization improving Vitals/IOs Vital Signs Date Time Temp Pulse Resp B/P Pulse Ox O2 Delivery O2 Flow Rate FiO2 04/16/17 05:37 97.3 77 94/65 04/15/17 17:20 17 97 Assessment & Plan Problem List: (1) Bipolar disorder ICD Code: F31.9 Assessment & Plan Continue current tx plan. Estimated LOS: days Justification for Cont. Inpt. impairments in self care Request HC Surrog/Guard Advoc?: Yes Problem Qualifiers (1) Bipolar disorder: Qualified Code: F31.2 - Bipolar affective disorder, currently manic, severe, with psychotic features Trina Fernandez MD Apr 16, 2017 16:48
[2017-04-16 18:07] VITALS: BP 113/62; PULSE 66; RESP 16; TEMP 98.7; O2SAT 100
[2017-04-16] MEDS: clonazePAM 1 MG TAB PO SCH (21:25)
[2017-04-17 05:00] VITALS: BP 92/54; PULSE 82; RESP 16; TEMP 98.6; O2SAT 98
[2017-04-17] MEDS: buPROPion HCL 75 MG TAB PO SCH ×2 (08:00→11:14)
[2017-04-17] MEDS: REMOVE OLD PATCH T-DERMAL SCH (08:56)
[2017-04-17] MEDS: NICOTINE 21 MG/24 HR PATCH T-DERMAL SCH (08:56)
[2017-04-17] MEDS: OLANZapine 10 MG TAB PO SCH ×3 (08:56→21:27)
[2017-04-17] MEDS: carBAMazepine 200 MG TAB PO SCH ×2 (08:56→21:26)
[2017-04-17] MEDS: HALOPERIDOL 5 MG TAB PO SCH ×2 (08:56→21:27)
--- NOTE | 2017-04-17 16:06 | HHI.PYPN ---
Subjective Remarks Pt seen and discussed with staff. RN reports pt attempted to cheek olanzapine this morning but did take medication. She states that she needs to have two cups of coffee at every meal. No aggression/agitation. Objective Alert: Yes [place]: Person, Place Mood: Calm Affect: Restricted Memory Intact: Comment (remains fair) Hallucinations: Other (None) Delusions: No Delusion Type: Other (no delusions) Suicidal: Ideation (no si) Homicidal: Ideation (no hi) Insight/Judgment poor Vitals/IOs Vital Signs Date Time Temp Pulse Resp B/P Pulse Ox O2 Delivery O2 Flow Rate FiO2 04/17/17 05:00 98.6 82 16 92/54 98 Manual Cuff/Auscultation Intake and Output 04/16/17 04/16/17 04/17/17 08:00 16:00 00:00 Intake Total 680 ml Balance 680 ml Assessment & Plan Problem List: (1) Bipolar disorder ICD Code: F31.9 Assessment & Plan Continue current tx plan. Estimated LOS: days Justification for Cont. Inpt. risk of decompenstion Request HC Surrog/Guard Advoc?: Yes Problem Qualifiers (1) Bipolar disorder: Qualified Code: F31.2 - Bipolar affective disorder, currently manic, severe, with psychotic features Trina Fernandez MD Apr 17, 2017 16:06
[2017-04-17 18:31] VITALS: BP 111/62; PULSE 73; RESP 18; TEMP 98.6; O2SAT 98
[2017-04-17] MEDS: clonazePAM 1 MG TAB PO SCH (21:26)
[2017-04-18] MEDS: NICOTINE 21 MG/24 HR PATCH T-DERMAL SCH (09:00)
[2017-04-18] MEDS: REMOVE OLD PATCH T-DERMAL SCH (09:00)
[2017-04-18] MEDS: OLANZapine 10 MG TAB PO SCH ×3 (09:15→21:13)
[2017-04-18] MEDS: buPROPion HCL 75 MG TAB PO SCH ×2 (09:15→12:31)
[2017-04-18] MEDS: HALOPERIDOL 5 MG TAB PO SCH ×2 (09:15→21:13)
[2017-04-18] MEDS: carBAMazepine 200 MG TAB PO SCH ×2 (09:15→21:13)
--- NOTE | 2017-04-18 13:02 | HHI.PYPN ---
Subjective Remarks Patient seen and examined with nurse. Chart reviewed. Case discussed with nursing staff who reports that the patient had a single episode of diarrhea this morning and went into unnecessary detail describing this bowel movement to the nurse. On my examination today, the patient does bring up the episode of diarrhea but says this is resolved. She then tells me that her mother is visiting her sister. She then shows me a scar on her finger from when she cut herself making stirfry several years ago. She is presently open to the idea of assisted living placement, and I have relayed this to the counselor. Denies side effects from medications. No physical complaints at this time. Review of Systems ROS Limitations: Poor Historian Except as stated in HPI: all other systems reviewed are Neg Objective Alert: Yes [place]: Person, Place Mood: Calm Affect: Blunted Memory Intact: Comment (remains fair) Hallucinations: Other (No AVH) Delusions: No Delusion Type: Other (No delusional material) Suicidal: Ideation (No SI) Homicidal: Ideation (No HI) Insight/Judgment Poor Remarks No motor abnormalities noted. Thought process continues to derail with extended questioning. Labs Labs reviewed. No new labs. Vitals/IOs Vital Signs Date Time Temp Pulse Resp B/P Pulse Ox O2 Delivery O2 Flow Rate FiO2 04/17/17 18:31 98.6 73 18 111/62 98 Assessment & Plan Problem List: (1) Bipolar disorder ICD Code: F31.9 Assessment & Plan Continue current psychotropics as ordered. Could consider checking a C. difficile PCR if diarrhea recurs. Continue to monitor on the inpatient unit. Continue other medications and care as ordered. Justification for Cont. Inpt. High risk for decompensation in a less restrictive environment. Discharge Planning Counselor to explore assisted living placement as an alternative to state psychiatric referral. Request HC Surrog/Guard Advoc?: Yes Problem Qualifiers (1) Bipolar disorder: Qualified Code: F31.2 - Bipolar affective disorder, currently manic, severe, with psychotic features Estuardo Mancilla MD Apr 18, 2017 13:02
[2017-04-18 17:28] VITALS: BP 109/54; PULSE 60; RESP 17; TEMP 97.3; O2SAT 60
[2017-04-18] MEDS: clonazePAM 1 MG TAB PO SCH (21:13)
[2017-04-19 06:20] VITALS: BP 90/65; PULSE 73; RESP 17; TEMP 98.6; O2SAT 100
[2017-04-19] MEDS: carBAMazepine 200 MG TAB PO SCH ×2 (08:44→21:35)
[2017-04-19] MEDS: OLANZapine 10 MG TAB PO SCH ×3 (08:44→21:35)
[2017-04-19] MEDS: HALOPERIDOL 5 MG TAB PO SCH ×2 (08:44→21:34)
[2017-04-19] MEDS: buPROPion HCL 75 MG TAB PO SCH ×2 (08:44→12:30)
[2017-04-19] MEDS: NICOTINE 21 MG/24 HR PATCH T-DERMAL SCH (08:47)
[2017-04-19] MEDS: REMOVE OLD PATCH T-DERMAL SCH (09:00)
--- NOTE | 2017-04-19 11:13 | PD.TTN ---
Patient Problems 1. Discharge planning 2. Medication compliance 3. Knowledge deficit 4. Lack of coping skills Progress Toward Goals Provider Input: Dr. Mancilla treatment team met to discuss patient's treatment, medication, and discharge plan. Per Dr. Mancilla's patient could be discharged to an [facility] if placement would be obtained. Pateint is felt to be at her baseline. Nurse Input: Per patient's nurse Jaiden patient is seclusive, speech is less rapid and responses more coherent Psych Therapist Input: Patient reports she is feeling better. Patient is wanting this counselor to look for placement. Patient presents seclusive, restless, cooperative but constricted, affect blunted. Patient's speech was rapid, pressured with rambling. Patient's tone, rate, and volume were accerlerated. Patient does not present internally stimulated but still has some delusional content when speaking. Patient's FACT reconnaissance crewmember Fredi Arrietae was contacted in reference of doctor feeling she is at her baseline. Patient remains medication compliant, eating and sleeping well. Occupational Therapist Input: Sallie MCMULLEN reports patient goes to selective groups like exercise, ice cream social, bingo, and participates independently. Isolates to self, has some episodes of flight of ideas, hyperverbal requiring maximum redirection. Cheyenne Kilgore [facility] Apr 19, 2017 11:12
--- NOTE | 2017-04-19 13:46 | HHI.PYPN ---
Subjective Remarks Patient seen and examined. Chart reviewed. Case discussed in treatment team. On my examination today, patient is a little perseverative on the possibility of going to [facility]. She wants to be" room 118" because that room is close to the bathroom. She is worried that she will have to go back to [place], although I reassure her that this is not necessary at this time. Some ongoing thought disorganization. Denies AVH. No side effects from medications. No physical complaints. Review of Systems ROS Limitations: Poor Historian Except as stated in HPI: all other systems reviewed are Neg Objective Alert: Yes [place]: Person, Place Mood: Calm Affect: Blunted Memory Intact: Comment (remains fair) Hallucinations: Other (none) Delusions: No Delusion Type: Other (no delusions) Suicidal: Ideation (no SI voiced) Homicidal: Ideation (no HI voiced) Insight/Judgment Poor Remarks Some ongoing thought disorganization. No motor abnormalities. Labs Labs reviewed. No new labs. Vitals/IOs Vital Signs Date Time Temp Pulse Resp B/P Pulse Ox O2 Delivery O2 Flow Rate FiO2 04/19/17 06:20 98.6 73 17 90/65 100 Assessment & Plan Problem List: (1) Bipolar disorder ICD Code: F31.9 Assessment & Plan Continue current psychiatric medications as ordered. Continue to monitor on the inpatient unit. Continue other medications and care as ordered. Justification for Cont. Inpt. High risk for decompensation in a less restrictive environment. Discharge Planning Counselor to begin exploring assisted living placement. Patient is on board with this plan. Counselor to reach out the patient's outpatient treatment team. Request HC Surrog/Guard Advoc?: Yes Problem Qualifiers (1) Bipolar disorder: Qualified Code: F31.2 - Bipolar affective disorder, currently manic, severe, with psychotic features Estuardo Mancilla MD Apr 19, 2017 13:46
[2017-04-19 15:31] VITALS: BP 105/65; PULSE 76; RESP 18; TEMP 98.4; O2SAT 100
[2017-04-19] MEDS: clonazePAM 1 MG TAB PO SCH (21:35)
[2017-04-20 05:44] VITALS: BP 87/57; PULSE 64; RESP 16; O2SAT 96
[2017-04-20 06:54] VITALS: TEMP 97.8
[2017-04-20] MEDS: REMOVE OLD PATCH T-DERMAL SCH (09:00)
[2017-04-20] MEDS: HALOPERIDOL 5 MG TAB PO SCH ×2 (09:53→21:31)
[2017-04-20] MEDS: carBAMazepine 200 MG TAB PO SCH ×2 (09:53→21:31)
[2017-04-20] MEDS: NICOTINE 21 MG/24 HR PATCH T-DERMAL SCH (09:53)
[2017-04-20] MEDS: OLANZapine 10 MG TAB PO SCH ×3 (09:53→21:31)
--- NOTE | 2017-04-20 09:54 | HHI.PYPN ---
Subjective Remarks Patient seen and examined with nurse. Chart reviewed. Case discussed with nursing staff. No behavioral issues noted per nurse. On my examination today, patient is calm and cooperative with examination. She remains agreeable to placement in an assisted living facility. Denies AVH. Thought process may be a little more organized today. Denies side effects from medications. No physical complaints. Review of Systems ROS Limitations: Poor Historian Except as stated in HPI: all other systems reviewed are Neg Objective Alert: Yes [place]: Person, Place, Date (approximate) Mood: Calm Affect: Blunted Memory Intact: Comment (fair) Hallucinations: Other (denies AVH) Delusions: No Delusion Type: Other (no delusions elicited) Suicidal: Ideation (no SI voiced) Homicidal: Ideation (no HI voiced) Insight/Judgment Poor Remarks No motoric abnormalities noted Labs Labs reviewed. Vitals/IOs Vital Signs Date Time Temp Pulse Resp B/P Pulse Ox O2 Delivery O2 Flow Rate FiO2 04/20/17 06:54 97.8 04/20/17 05:44 64 16 87/57 96 Assessment & Plan Problem List: (1) Bipolar disorder ICD Code: F31.9 Assessment & Plan Continue current psychiatric medications as ordered. Continue to monitor on the inpatient unit. Continue other medications and care as ordered. Justification for Cont. Inpt. Risk for decompensation in a less restrictive environment. Discharge Planning Counselor is working on placement for this patient. [facility] referral represents a backup plan. Request HC Surrog/Guard Advoc?: Yes Problem Qualifiers (1) Bipolar disorder: Qualified Code: F31.73 - Bipolar disorder, in partial remission, most recent episode manic Estuardo Mancilla MD Apr 20, 2017 09:54
[2017-04-20] MEDS: buPROPion HCL 75 MG TAB PO SCH ×2 (09:56→12:00)
[2017-04-20 18:00] VITALS: BP 114/68; PULSE 79; RESP 18; TEMP 98.2; O2SAT 98
[2017-04-20] MEDS: clonazePAM 1 MG TAB PO SCH (21:31)
[2017-04-21 05:55] VITALS: BP 84/54; PULSE 78; RESP 16; TEMP 98; O2SAT 98
[2017-04-21] MEDS: carBAMazepine 200 MG TAB PO SCH ×2 (08:45→21:30)
[2017-04-21] MEDS: OLANZapine 10 MG TAB PO SCH ×3 (08:45→21:30)
[2017-04-21] MEDS: HALOPERIDOL 5 MG TAB PO SCH ×2 (08:46→21:30)
[2017-04-21] MEDS: NICOTINE 21 MG/24 HR PATCH T-DERMAL SCH (08:46)
[2017-04-21] MEDS: REMOVE OLD PATCH T-DERMAL SCH (08:47)
[2017-04-21] MEDS: buPROPion HCL 75 MG TAB PO SCH ×2 (08:49→12:00)
--- NOTE | 2017-04-21 11:58 | HHI.PYPN ---
Subjective Remarks Patient seen and examined with nurse. Chart reviewed. Case discussed with nursing staff. Case discussed with counselor who continues to work with patient 's outpatient manager case management to arrange placement for the patient. On my examination today, the patient is perseverative about her weight on the scale on the unit. I see that she was weighed at 111 pounds this morning, down 3 pounds from last check. No other concerns. Thought organization remains generally improved. No side effects from medications. Review of Systems ROS Limitations: Poor Historian Except as stated in HPI: all other systems reviewed are Neg Objective Alert: Yes [place]: Person, Place Mood: Anxious Affect: Blunted Memory Intact: Comment (fair) Hallucinations: Other (No AVH) Delusions: No Delusion Type: Other (None) Suicidal: Ideation (No SI) Homicidal: Ideation (No HI) Insight/Judgment Poor Remarks No motoric abnormalities noted. Labs Labs reviewed. Vitals/IOs Vital Signs Date Time Temp Pulse Resp B/P Pulse Ox O2 Delivery O2 Flow Rate FiO2 04/21/17 05:55 98.0 78 16 84/54 98 Intake and Output 04/20/17 04/20/17 04/21/17 08:00 16:00 00:00 Intake Total 480 ml Balance 480 ml Assessment & Plan Problem List: (1) Bipolar disorder ICD Code: F31.9 Assessment & Plan Continue current psychiatric meds as ordered. Continue to monitor on inpatient unit. Continue other medications and care as ordered. Justification for Cont. Inpt. High risk for decompensation in a less restrictive environment. Discharge Planning Placement versus state psychiatric hospitalization. Request HC Surrog/Guard Advoc?: Yes Problem Qualifiers (1) Bipolar disorder: Qualified Code: F31.73 - Bipolar disorder, in partial remission, most recent episode manic Estuardo Mancilla MD Apr 21, 2017 11:58
[2017-04-21 18:00] VITALS: BP 95/69; PULSE 89; RESP 17; TEMP 98.4; O2SAT 99
[2017-04-21] MEDS: clonazePAM 1 MG TAB PO SCH (21:30)
[2017-04-22] MEDS: REMOVE OLD PATCH T-DERMAL SCH (09:00)
[2017-04-22] MEDS: HALOPERIDOL 5 MG TAB PO SCH ×2 (09:21→21:50)
[2017-04-22] MEDS: OLANZapine 10 MG TAB PO SCH ×3 (09:21→21:51)
[2017-04-22] MEDS: carBAMazepine 200 MG TAB PO SCH ×2 (09:22→21:51)
[2017-04-22] MEDS: buPROPion HCL 75 MG TAB PO SCH ×2 (09:23→13:06)
[2017-04-22] MEDS: NICOTINE 21 MG/24 HR PATCH T-DERMAL SCH (09:24)
--- NOTE | 2017-04-22 11:06 | HHI.PYPN ---
Subjective Remarks Endeavored to see patient twice today with counselor. She is on the phone, reportedly paying bills. She tells us that this business is very important and she is not to be bothered. No evident side effects from medications. Case d/w RN. Review of Systems ROS Limitations: Uncooperative Other Unable to obtain ROS. Objective Alert: Yes [place]: Person (at least) Mood: Other (unable to assess) Affect: Blunted Memory Intact: Comment (unable to assess) Hallucinations: Other (unable to assess) Delusions: No Delusion Type: Other (unable to assess) Suicidal: Ideation (None voiced) Homicidal: Ideation (None voiced) Insight/Judgment suspect remains poor Remarks No motor abnormalities noted. Labs Labs reviewed. Vitals/IOs Vital Signs Date Time Temp Pulse Resp B/P Pulse Ox O2 Delivery O2 Flow Rate FiO2 04/21/17 18:00 98.4 89 17 95/69 99 Assessment & Plan Problem List: (1) Bipolar disorder ICD Code: F31.9 Assessment & Plan Continue psychotropics as currently ordered. Continue to monitor on inpatient unit. Continue other meds and care as ordered. Justification for Cont. Inpt. Risk for decompensation. Discharge Planning [facility] placement versus state psychiatric hospitalization. Counselor working with [facility] on placement options. Request HC Surrog/Guard Advoc?: Yes Problem Qualifiers (1) Bipolar disorder: Qualified Code: F31.73 - Bipolar disorder, in partial remission, most recent episode manic Estuardo Mancilla MD Apr 22, 2017 11:06
[2017-04-22 18:00] VITALS: BP 121/62; PULSE 86; RESP 16; TEMP 97.6; O2SAT 99
[2017-04-22] MEDS: clonazePAM 1 MG TAB PO SCH (21:51)
[2017-04-23 06:12] VITALS: BP 94/52; PULSE 63; RESP 17; TEMP 97.5; O2SAT 97
[2017-04-23] MEDS: buPROPion HCL 75 MG TAB PO SCH ×2 (08:00→11:35)
[2017-04-23] MEDS: REMOVE OLD PATCH T-DERMAL SCH (09:00)
[2017-04-23] MEDS: carBAMazepine 200 MG TAB PO SCH ×2 (09:00→21:06)
[2017-04-23] MEDS: OLANZapine 10 MG TAB PO SCH ×3 (09:00→21:07)
[2017-04-23] MEDS: NICOTINE 21 MG/24 HR PATCH T-DERMAL SCH (09:00)
[2017-04-23] MEDS: HALOPERIDOL 5 MG TAB PO SCH ×2 (09:00→21:07)
--- NOTE | 2017-04-23 15:16 | HHI.PYPN ---
Subjective Remarks Patient was seen and case discussed with nursing. Per nursing patient has some pleasant and cooperative throughout the day. His compliant with her medications and tolerating it well. Perseverative today and getting 2 cups of coffee tomorrow morning. She denies auditory or visual hallucinations Objective Alert: Yes [place]: Person (at least), Place Mood: Calm Affect: Blunted Memory Intact: Comment (not assessed today) Hallucinations: Other (denies) Delusions: No Delusion Type: Other (denies) Suicidal: Ideation (None voiced) Homicidal: Ideation (None voiced) Insight/Judgment Poor Vitals/IOs Vital Signs Date Time Temp Pulse Resp B/P Pulse Ox O2 Delivery O2 Flow Rate FiO2 04/23/17 06:12 97.5 63 17 94/52 97 Manual Cuff/Auscultation Assessment & Plan Problem List: (1) Bipolar disorder ICD Code: F31.9 Assessment & Plan Continue current treatment plan Justification for Cont. Inpt. Patient would decompensate in a less restrictive setting Request HC Surrog/Guard Advoc?: Yes Problem Qualifiers (1) Bipolar disorder: Qualified Code: F31.73 - Bipolar disorder, in partial remission, most recent episode manic Apollo Hope DO Apr 23, 2017 15:16
[2017-04-23 18:17] VITALS: BP 97/58; PULSE 81; RESP 17; TEMP 98.1; O2SAT 99
[2017-04-23] MEDS: clonazePAM 1 MG TAB PO SCH (21:07)
[2017-04-24 05:58] VITALS: BP 90/50; PULSE 54; RESP 16; TEMP 98.3; O2SAT 99
[2017-04-24] MEDS: NICOTINE 21 MG/24 HR PATCH T-DERMAL SCH (08:37)
[2017-04-24] MEDS: OLANZapine 10 MG TAB PO SCH ×3 (08:37→21:25)
[2017-04-24] MEDS: HALOPERIDOL 5 MG TAB PO SCH ×2 (08:38→21:25)
[2017-04-24] MEDS: carBAMazepine 200 MG TAB PO SCH ×2 (08:38→21:25)
[2017-04-24] MEDS: buPROPion HCL 75 MG TAB PO SCH ×2 (08:42→11:28)
[2017-04-24] MEDS: REMOVE OLD PATCH T-DERMAL SCH (08:50)
--- NOTE | 2017-04-24 14:17 | HHI.PYPN ---
Subjective Remarks Patient was seen and case discussed with nursing. Nursing notices an improvement in patient's behavior. She has not has any outbursts and is less internally preoccupied. She went to therapy. However, when asked about her initial reasons for admission she becomes irritable and perseverative. Compliant with medications Objective Alert: Yes [place]: Person (at least), Place, Date Mood: Calm Affect: Restricted Memory Intact: Comment (not assessed today) Hallucinations: Other (denies) Delusions: No Delusion Type: Other (denies) Suicidal: Ideation (None voiced) Homicidal: Ideation (None voiced) Insight/Judgment Poor Vitals/IOs Vital Signs Date Time Temp Pulse Resp B/P Pulse Ox O2 Delivery O2 Flow Rate FiO2 04/24/17 05:58 98.3 54 16 90/50 99 Assessment & Plan Problem List: (1) Bipolar disorder ICD Code: F31.9 Assessment & Plan Continue current treatment plan Justification for Cont. Inpt. Patient will decompensate in a less restrictive setting Request HC Surrog/Guard Advoc?: Yes Problem Qualifiers (1) Bipolar disorder: Qualified Code: F31.73 - Bipolar disorder, in partial remission, most recent episode manic Apollo Hope DO Apr 24, 2017 14:17
[2017-04-24 17:37] VITALS: BP 125/67; PULSE 87; RESP 18; TEMP 97.1; O2SAT 97
[2017-04-24] MEDS: clonazePAM 1 MG TAB PO SCH (21:25)
[2017-04-25 06:15] VITALS: BP 100/54; PULSE 61; RESP 18; TEMP 98.3; O2SAT 98
[2017-04-25] MEDS: OLANZapine 10 MG TAB PO SCH ×3 (09:22→20:32)
[2017-04-25] MEDS: HALOPERIDOL 5 MG TAB PO SCH ×2 (09:22→20:32)
[2017-04-25] MEDS: buPROPion HCL 75 MG TAB PO SCH ×2 (09:22→12:58)
[2017-04-25] MEDS: carBAMazepine 200 MG TAB PO SCH ×2 (09:22→20:33)
[2017-04-25] MEDS: NICOTINE 21 MG/24 HR PATCH T-DERMAL SCH (09:23)
[2017-04-25] MEDS: REMOVE OLD PATCH T-DERMAL SCH (09:23)
[2017-04-25] MEDS: MAGNESIUM HYDROXIDE SUSP 30 ML CUP PO PRN (10:52)
--- NOTE | 2017-04-25 13:59 | HHI.PYPN ---
Subjective Remarks Continues to demonstrate rapid speech, flight of ideas, ideas of reference, and is somewhat provocative. Review of Systems Except as stated in HPI: all other systems reviewed are Neg Objective Alert: Yes [place]: Person (at least), Place, Date Mood: Calm Affect: Restricted Memory Intact: Comment (not assessed today) Hallucinations: Other (denies) Delusions: No Delusion Type: [place], Other (denies) Suicidal: Ideation (None voiced) Homicidal: Ideation (None voiced) Insight/Judgment Impaired Vitals/IOs Vital Signs Date Time Temp Pulse Resp B/P Pulse Ox O2 Delivery O2 Flow Rate FiO2 04/25/17 06:15 98.3 61 18 100/54 98 Assessment & Plan Problem List: (1) Bipolar disorder ICD Code: F31.9 Assessment & Plan Estimated LOS: days needs more time on current medication regimen in order to respond. Justification for Cont. Inpt. Likely to decompensate at lower level of care. Request HC Surrog/Guard Advoc?: Yes Problem Qualifiers (1) Bipolar disorder: Qualified Code: F31.73 - Bipolar disorder, in partial remission, most recent episode manic Israel Easton MD Apr 25, 2017 13:59
[2017-04-25 16:54] VITALS: BP 123/73; PULSE 74; RESP 18; TEMP 97.6; O2SAT 100
[2017-04-25] MEDS: clonazePAM 1 MG TAB PO SCH (20:33)
[2017-04-26 06:21] VITALS: BP 94/43; PULSE 67; RESP 18; TEMP 98.4; O2SAT 97
[2017-04-26] MEDS: buPROPion HCL 75 MG TAB PO SCH ×2 (08:56→13:28)
[2017-04-26] MEDS: REMOVE OLD PATCH T-DERMAL SCH (08:57)
[2017-04-26] MEDS: OLANZapine 10 MG TAB PO SCH ×3 (08:57→21:59)
[2017-04-26] MEDS: HALOPERIDOL 5 MG TAB PO SCH ×2 (08:57→21:59)
[2017-04-26] MEDS: carBAMazepine 200 MG TAB PO SCH ×2 (08:57→21:59)
[2017-04-26] MEDS: NICOTINE 21 MG/24 HR PATCH T-DERMAL SCH (08:57)
--- NOTE | 2017-04-26 12:14 | HHI.PYPN ---
Subjective Remarks Continues to be delusional with hypomanic symptoms of increased energy, increased activity, rapid speech, flight of ideas. Review of Systems Except as stated in HPI: all other systems reviewed are Neg Objective Alert: Yes [place]: Person (at least), Place, Date Mood: Calm Affect: Restricted Memory Intact: Comment (not assessed today) Hallucinations: Other (denies) Delusions: No Delusion Type: Grandiose, Other (denies) Suicidal: Ideation (None voiced) Homicidal: Ideation (None voiced) Insight/Judgment Impaired Vitals/IOs Vital Signs Date Time Temp Pulse Resp B/P Pulse Ox O2 Delivery O2 Flow Rate FiO2 04/26/17 06:21 98.4 67 18 94/43 97 Assessment & Plan Problem List: (1) Bipolar disorder ICD Code: F31.9 Assessment & Plan Estimated LOS: days patient requires more time to stabilize on current medicines. Justification for Cont. Inpt. Likely to decompensate at lower level of care. Request HC Surrog/Guard Advoc?: Yes Problem Qualifiers (1) Bipolar disorder: Qualified Code: F31.73 - Bipolar disorder, in partial remission, most recent episode manic Israel Easton MD Apr 26, 2017 12:14
[2017-04-26 16:06] VITALS: BP 128/75; PULSE 73; RESP 18; TEMP 99; O2SAT 100
[2017-04-26] MEDS: clonazePAM 1 MG TAB PO SCH (21:59)
[2017-04-27 06:31] VITALS: BP 102/51; PULSE 77; RESP 18; TEMP 97.6; O2SAT 98
[2017-04-27] MEDS: NICOTINE 21 MG/24 HR PATCH T-DERMAL SCH (09:00)
[2017-04-27] MEDS: REMOVE OLD PATCH T-DERMAL SCH (09:00)
[2017-04-27] MEDS: OLANZapine 10 MG TAB PO SCH ×2 (09:08→12:31)
[2017-04-27] MEDS: HALOPERIDOL 5 MG TAB PO SCH (09:09)
[2017-04-27] MEDS: buPROPion HCL 75 MG TAB PO SCH ×2 (09:10→12:00)
[2017-04-27] MEDS: carBAMazepine 200 MG TAB PO SCH (09:10)
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
[2017-04-27] MEDS ORDERED: BUPR75TA PO (13:37)
[2017-04-27] MEDS ORDERED: CLON1 PO (13:37)
[2017-04-27] MEDS ORDERED: VENTAER INH (13:37)
[2017-04-27] MEDS ORDERED: OLAN10TA PO (13:37)
[2017-04-27] MEDS ORDERED: HALO5TAB PO (13:37)
[2017-04-27] MEDS ORDERED: CARB200T PO (13:37)
== END 2017-04-27 14:55 | DRG 885 ==
LOC: H4EA 15:00 → H260 03-23 14:08
PROVIDERS: ADMIT Psychiatry & Neurology Psychiatry; ATTEND Psychiatry & Neurology Psychiatry
DX: F25.0 Schizoaffective disorder, bipolar type (principal); N39.0 Urinary tract infection, site not specified; E87.1 Hypo-osmolality and hyponatremia; Z59.0 Homelessness; Z79.899 Other long term (current) drug therapy
CPT/HCPCS: 80048; 80053; 80156; 80307; 81001; 83605; 84295; 84436; 84443; 84480; 85025; 85027; 86403; 87040; 87077; 87086; 87186; 99285; J0696; J1644; J7030

== ENCOUNTER 2017-04-27 20:37 | Emergency (ER) | payer MEDICARE, OTHER ==
[~2017-04-27] VITALS: Ht 162.6 cm; Wt 50.0 kg
[~2017-04-27 20:37] MED LIST changes: -ACYC-1 PO; -BUPR-197 PO; +CIPR250T2 PO; -CLIN150 PO; +HALO5TAB PO; -KLON2TAB PO; +OLAN10TA PO
[2017-04-27 20:39] VITALS: BP 131/76; PULSE 97; RESP 16; TEMP 98.9; O2SAT 97
--- NOTE | 2017-04-28 02:11 | PD ---
HPI Chief Complaint: Psychiatric Symptoms Time Seen by Provider: 02:03 Travel History International Travel<30 days: No Contact w/Intl Traveler<30days: No Traveled to known affect area: No History of Present Illness HPI Patient comes back to the emergency department requesting voluntary psychiatric admission after being released from the hospital yesterday. Patient states that she feels that she was released to soon and did not feel safe in place she was sent. Patient denies any auditory or visual hallucinations. Patient denies anything making her symptoms better. States that the place she was sent to make her feel more paranoid. Patient denies any suicidal or homicidal ideations. Patient denies any chest pain, shortness of breath, fevers, back pain, abdominal pain, nausea, vomiting, loss change in bowel or bladder, headache, or numbness or tingling anywhere. Patient is complaining of being hungry states she has not ate since lunch yesterday. 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) Bipolar Disorder: Yes Anxiety: Yes Depression: Yes Cancer: No Cardiovascular Problems: Yes (MITRAL VALVE PROLAPSE) Diminished Hearing: No Endocrine: No Gastrointestinal Disorders: Yes (PEPTIC ULCER DISEASE) Genitourinary: No Immune Disorder: No Musculoskeletal: No Neurologic: No Psychiatric: Yes Respiratory: No Schizophrenia: Yes Seizures: Yes Ulcer: Yes ?: Not Menopausal: Yes : 1 Para: 0 Miscarriage: 0 : 1 Past Surgical History Abdominal Surgery: Yes (appendectomy) Appendectomy: Yes Other Surgery: Yes (BREAST IMPLANTS PLACED AND LATER REMOVED) Social History Alcohol Use: No Tobacco Use: Yes (1 ppd) Substance Use: No Allergies-Medications (Allergen,Severity, Reaction): Coded Allergies: Erythromycin (Verified Allergy, Severe, 04/27/17) Bactrim (Verified Allergy, Intermediate, Nausea/Vomiting, blurred vision, 04/27/17) Flagyl (Verified Allergy, Mild, Hives, 04/27/17) [place] (Verified Allergy, Unknown, Rash, 04/27/17) Per patient, she gets a rash from [place]. Reported Meds & Prescriptions Reported Meds & Active Scripts Active Olanzapine 10 Mg Tab 10 Mg PO DAILY@09,13,21 Haloperidol 5 Mg Tab 5 Mg PO BID Klonopin (Clonazepam) 1 Mg Tab 2 Mg PO HS Carbamazepine 200 Mg Tab 200 Mg PO Q12HR Bupropion HCl 75 Mg Tab 150 Mg PO DAILY@08,12 Ventolin Hfa 18 GM Inh (Albuterol Sulfate) 90 Mcg/Act Aer 2 Puff INH Q4H PRN Ciprofloxacin (Ciprofloxacin HCl) 250 Mg Tab 250 Mg PO BID Klonopin (Clonazepam) 1 Mg Tab 2 Mg PO HS Carbamazepine 200 Mg Tab 200 Mg PO BID Bupropion HCl 75 Mg Tab 150 Mg PO DAILY@08,12 30 Days Ventolin Hfa 18 GM Inh (Albuterol Sulfate) 90 Mcg/Act Aer 2 Puff INH Q4H PRN 30 Days Reported Zyprexa (Olanzapine) 15 Mg Tab 15 Mg PO HS Saphris (Asenapine) 10 Mg Subl 10 Mg SL HS Benztropine (Benztropine Mesylate) 1 Mg Tab 1 Mg PO HS Phenazopyridine (Phenazopyridine HCl) 100 Mg Tab 100 Mg PO Q8H PRN Review of Systems Except as stated in HPI: all other systems reviewed are Neg Physical Exam Narrative GENERAL: Well-developed, well nourished, in no acute distress, and non-ill appearing. SKIN: Focused skin assessment warm and dry. HEAD: Atraumatic. Normocephalic. EYES: Pupils equal and round. EOMI. No scleral icterus. No injection or drainage. ENT: No nasal bleeding or discharge. Mucous membranes pink and moist. NECK: Trachea midline. Supple. No nuclear rigidity. CARDIOVASCULAR: Regular rate and rhythm. No murmur appreciated. RESPIRATORY: No accessory muscle use. No respiratory distress. Clear to auscultation. Breath sounds equal bilaterally. MUSCULOSKELETAL: No obvious deformities. No clubbing. No cyanosis. No edema. Full range of motion. NEUROLOGICAL: Awake and alert. No obvious cranial nerve deficits. Motor grossly within normal limits. Normal speech. PSYCHIATRIC: Appropriate mood and affect. Rambling speech. Data Data Last Documented VS Vital Signs Date Time Temp Pulse Resp B/P Pulse Ox O2 Delivery O2 Flow Rate FiO2 04/27/17 20:39 98.9 97 16 131/76 97 Room Air Orders Psych Screen (04/28/17 02:03) MDM Medical Decision Making Medical Screen Exam Complete: Yes Emergency Medical Condition: Yes Medical Record Reviewed: Yes Differential Diagnosis Bipolar, schizophrenic, malingering, psychosis, other Narrative Course Patient was seen and examined. Patient was released from the hospital less than 24 hours ago and patient with no medical complaints, I do not see need for laboratory work at this time. Patient medically cleared for further treatment and evaluation by psych. Final disposition per psych. Diagnosis Primary Impression: Medical clearance for psychiatric admission Condition: Stable José Luis Connelly Apr 28, 2017 02:11
[2017-04-28 05:59] VITALS: BP 111/59; PULSE 63; RESP 16; O2SAT 96
[2017-04-28 11:30] VITALS: BP 118/62
== END 2017-04-28 11:47 | disposition home or self-care (01) ==
LOC: NEPD 20:37
DX: R68.89 Other general symptoms and signs (principal); F31.9 Bipolar disorder, unspecified; F17.210 Nicotine dependence, cigarettes, uncomplicated
CPT/HCPCS: 99283

== ENCOUNTER 2017-07-12 16:54 | Inpatient (IN) | payer MEDICARE ==
[~2017-07-12] VITALS: Ht 162.6 cm; Wt 50.2 kg
[~2017-07-12 16:54] MED LIST changes: +BENZ0.5T PO; -BENZ1TAB PO; -CIPR250T2 PO; +CLON0.5T PO; -CLON1 PO; -PHEN-426 PO; -SAPH10SU3 SL; -VENTAER INH; -ZYPR15TA PO
[2017-07-12 16:56] VITALS: BP 118/63; PULSE 93; RESP 12; TEMP 98.3; O2SAT 96
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
[2017-07-12 17:10] VITALS: BP 120/72; PULSE 89; RESP 19; TEMP 98.4; O2SAT 99
[2017-07-12 18:05] LABS: BASOPHIL # 0.1 TH/MM3 (0-0.2); BASOPHIL % 0.9 % (0.0-2.0); EOSINOPHIL # 0.3 TH/MM3 (0-0.4); EOSINOPHIL % 3.6 % (0.0-4.0); HEMO FLAGS DIFF FINAL; LYMPH % 18.2 % (9.0-44.0); LYMPHOCYTE # 1.3 TH/MM3 (1.0-4.8); MEAN CELL VOLUME 99.7 FL (80.0-100.0); MEAN CORPUSCULAR HEMOGLOBIN 35.1 PG (27.0-34.0); MEAN CORPUSCULAR HGB CONC 35.2 % (32.0-36.0); MONO % 7.7 % (0.0-8.0); NEUT % 69.6 % (16.0-70.0); PLATELET COUNT 261 TH/MM3 (150-450); RED BLOOD COUNT 3.71 MIL/MM3 (4.00-5.30); RED CELL DISTRIBUTION WIDTH 13.3 % (11.6-17.2); WHITE BLOOD COUNT 7.2 TH/MM3 (4.0-11.0)
[2017-07-12 18:22] LABS: ALT (GPT) 15 U/L (10-53); ANION GAP 10 MEQ/L (5-15); AST (GOT) 16 U/L (15-37); BICARBONATE 25.3 MEQ/L (21.0-32.0); BLOOD UREA NITROGEN 8 MG/DL (7-18); CHLORIDE 92 MEQ/L (98-107); GLOMERULAR FILTRATION RATE 72 ML/MIN (>89); POTASSIUM 3.7 MEQ/L (3.5-5.1); SODIUM (NA) 127 MEQ/L (136-145)
[2017-07-12 18:24] LABS: ALKALINE PHOSPHATASE 88 U/L (45-117); TOTAL BILIRUBIN ADULT 0.5 MG/DL (0.2-1.0)
[2017-07-12 18:25] LABS: ALCOHOL LESS THAN 3 MG/DL (0-5)
[2017-07-12] MEDS ORDERED: SODIUM CHLOR 0.9% 1000 ML INJ 1,000 ML IV ONE (19:00)
[2017-07-12 22:00] VITALS: BP 91/54; PULSE 90; RESP 18; TEMP 98.1; O2SAT 96
[2017-07-13 02:05] VITALS: BP 95/54; PULSE 80; RESP 18; TEMP 98.3; O2SAT 98
[2017-07-13 06:14] VITALS: BP 113/53; PULSE 80; RESP 18
[2017-07-13] MEDS ORDERED: NICOTINE 21 MG/24 HR PATCH T-DERMAL ONE (09:00)
[2017-07-13 10:36] VITALS: BP 102/60; PULSE 72; RESP 18; O2SAT 100
[2017-07-13 18:18] VITALS: BP 121/68; PULSE 87; RESP 18; O2SAT 100
[2017-07-13] MEDS ORDERED: ALUMINUM/MAGNESIUM/SIMETH 30 ML CUP PO PRN (20:00)
[2017-07-13] MEDS ORDERED: diphenhydrAMINE HCL 50 MG CAP PO PRN (20:00)
[2017-07-13] MEDS ORDERED: hydrOXYzine HCL 50 MG TAB PO PRN (20:00)
[2017-07-13] MEDS ORDERED: MAGNESIUM HYDROXIDE SUSP 30 ML CUP PO PRN (20:00)
[2017-07-13] MEDS ORDERED: diphenhydrAMINE HCL 50 MG/ML VIAL - HS PRN IM (20:00)
[2017-07-13] MEDS ORDERED: diphenhydrAMINE HCL 50 MG/ML VIAL IM PRN (20:00)
[2017-07-13] MEDS ORDERED: diphenhydrAMINE HCL 50 MG CAP - HS PRN PO (20:00)
[2017-07-13 20:20] VITALS: BP 125/71; PULSE 85; RESP 17; TEMP 98.2; O2SAT 98
[2017-07-13] MEDS: carBAMazepine 200 MG TAB PO SCH (20:44)
[2017-07-13] MEDS: REMOVE OLD NICOTINE PATCH T-DERMAL SCH (20:45)
[2017-07-13] MEDS: OLANZapine 10 MG TAB PO SCH (20:45)
[2017-07-13] MEDS ORDERED: clonazePAM 0.5 MG TAB PO SCH (21:00)
[2017-07-14 05:45] VITALS: BP 95/50; PULSE 64; RESP 16; TEMP 97.6; O2SAT 99
[2017-07-14] MEDS: OLANZapine 10 MG TAB PO SCH ×2 (08:49→20:19)
[2017-07-14] MEDS: carBAMazepine 200 MG TAB PO SCH ×2 (08:49→20:19)
[2017-07-14] MEDS: buPROPion HCL 75 MG TAB PO SCH ×2 (08:49→12:09)
[2017-07-14] MEDS: NICOTINE 21 MG/24 HR PATCH T-DERMAL SCH (08:50)
[2017-07-14] MEDS ORDERED: REMOVE OLD NICODERM (NICOTINE) PATCH T-DERMAL ONE (09:00)
[2017-07-14] MEDS ORDERED: clonazePAM 0.5 MG TAB PO SCH (09:00)
[2017-07-14 09:04] LABS: BICARBONATE 28.9 MEQ/L (21.0-32.0); BLOOD UREA NITROGEN 8 MG/DL (7-18); GLOMERULAR FILTRATION RATE 77 ML/MIN (>89)
[2017-07-14 09:07] LABS: HDL CHOLESTEROL 74.6 MG/DL (40.0-60.0); LDL CHOLESTEROL 74 MG/DL (0-99)
[2017-07-14 09:29] LABS: ANION GAP 6 MEQ/L (5-15); CHLORIDE 107 MEQ/L (98-107); POTASSIUM 3.6 MEQ/L (3.5-5.1); SODIUM (NA) 142 MEQ/L (136-145)
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
[2017-07-14] MEDS ORDERED: LORazepam 2 MG/ML VIAL IM PRN (11:00)
[2017-07-14] MEDS ORDERED: LORazepam 1 MG TAB PO PRN (11:00)
[2017-07-14 11:24] LABS: HEMOGLOBIN A1b 1.5 %; HEMOGLOBIN Ao 86.8 %; HEMOGLOBIN LA1C 1.8 %; HEMOGLOBIN P3 3.4 %
[2017-07-14] MEDS ORDERED: HALOPERIDOL DECANOATE 50 MG/ML VIAL IM SCH (12:00)
[2017-07-14 15:52] VITALS: BP 101/57; PULSE 84; RESP 18; TEMP 98.5; O2SAT 98
[2017-07-14] MEDS: clonazePAM 1 MG TAB PO SCH (20:19)
[2017-07-14] MEDS: HALOPERIDOL 5 MG TAB PO SCH (20:19)
[2017-07-14] MEDS: REMOVE OLD NICOTINE PATCH T-DERMAL SCH (20:20)
[2017-07-15 05:53] VITALS: BP 91/55; PULSE 68; RESP 18; TEMP 97.9; O2SAT 97
[2017-07-15] MEDS: HALOPERIDOL 5 MG TAB PO SCH ×2 (09:45→21:07)
[2017-07-15] MEDS: buPROPion HCL 75 MG TAB PO SCH ×2 (09:45→12:00)
[2017-07-15] MEDS: THIAMINE HCL 100 MG TAB PO SCH (09:46)
[2017-07-15] MEDS: OLANZapine 10 MG TAB PO SCH ×2 (09:46→21:07)
[2017-07-15] MEDS: carBAMazepine 200 MG TAB PO SCH ×2 (09:46→21:07)
[2017-07-15] MEDS: FOLIC ACID 1 MG TAB PO SCH (09:46)
[2017-07-15] MEDS: NICOTINE 21 MG/24 HR PATCH T-DERMAL SCH (09:52)
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
[2017-07-15 18:33] VITALS: BP 144/78; PULSE 70; RESP 18; TEMP 98.6; O2SAT 100
[2017-07-15] MEDS: REMOVE OLD NICOTINE PATCH T-DERMAL SCH (21:00)
[2017-07-15] MEDS: clonazePAM 1 MG TAB PO SCH (21:07)
[2017-07-15] MEDS: ACETAMINOPHEN 325 MG TAB PO PRN (23:56)
[2017-07-16 06:37] VITALS: BP 145/76; PULSE 85; RESP 17; TEMP 98.7
[2017-07-16] MEDS: buPROPion HCL 75 MG TAB PO SCH ×2 (08:00→12:17)
[2017-07-16] MEDS: OLANZapine 10 MG TAB PO SCH ×2 (09:08→21:44)
[2017-07-16] MEDS: HALOPERIDOL 5 MG TAB PO SCH ×2 (09:08→21:44)
[2017-07-16] MEDS: carBAMazepine 200 MG TAB PO SCH ×2 (09:08→21:44)
[2017-07-16] MEDS: FOLIC ACID 1 MG TAB PO SCH (09:08)
[2017-07-16] MEDS: THIAMINE HCL 100 MG TAB PO SCH (09:08)
[2017-07-16] MEDS: NICOTINE 21 MG/24 HR PATCH T-DERMAL SCH (09:09)
--- NOTE | 2017-07-16 14:57 | HHI.PYPN ---
Subjective Remarks Pt seen and discussed with staff. She slept poorly last night and has been pacing and talking to self. She is disorganized and mildly intrusive on unit, requiring redirection. She is compliant with medications. Objective Alert: Yes [place]: Person, Place Mood: Anxious Affect: Labile Memory Intact: Comment (Fair) Hallucinations: Other (Denies AVH) Delusions: No Delusion Type: Other (No delusions) Suicidal: Ideation (No SI) Homicidal: Ideation (No HI) Insight/Judgment poor Vitals/IOs Vital Signs Date Time Temp Pulse Resp B/P (MAP) Pulse Ox O2 Delivery O2 Flow Rate FiO2 07/16/17 06:37 98.7 85 17 145/76 (99) 07/15/17 18:33 100 07/13/17 18:18 Room Air Assessment & Plan Problem List: (1) Schizoaffective disorder ICD Codes: F25.9 - Schizoaffective disorder Status: Acute Assessment & Plan Continue current tx plan. Estimated LOS: days Justification for Cont. Inpt. mood instability Request HC Surrog/Guard Advoc?: No Problem Qualifiers (1) Schizoaffective disorder: Qualified Codes: F25.0 - Schizoaffective disorder, bipolar type Trina Fernandez MD Jul 16, 2017 14:57
[2017-07-16] MEDS: IBUPROFEN 600 MG TAB PO PRN ×2 (16:01→23:52)
[2017-07-16 18:48] VITALS: BP 116/66; PULSE 83; RESP 18; TEMP 98.7; O2SAT 100
[2017-07-16] MEDS: REMOVE OLD NICOTINE PATCH T-DERMAL SCH (21:00)
[2017-07-16] MEDS: clonazePAM 1 MG TAB PO SCH (21:44)
[2017-07-17 06:34] VITALS: BP 90/50; PULSE 78; RESP 18; TEMP 97.8; O2SAT 99
[2017-07-17] MEDS: NICOTINE 21 MG/24 HR PATCH T-DERMAL SCH (09:12)
[2017-07-17] MEDS: OLANZapine 10 MG TAB PO SCH ×2 (09:13→21:48)
[2017-07-17] MEDS: THIAMINE HCL 100 MG TAB PO SCH (09:13)
[2017-07-17] MEDS: carBAMazepine 200 MG TAB PO SCH ×2 (09:13→21:49)
[2017-07-17] MEDS: HALOPERIDOL 5 MG TAB PO SCH ×2 (09:14→21:48)
[2017-07-17] MEDS: FOLIC ACID 1 MG TAB PO SCH (09:14)
[2017-07-17] MEDS: buPROPion HCL 75 MG TAB PO SCH ×2 (09:16→12:13)
[2017-07-17] MEDS: IBUPROFEN 600 MG TAB PO PRN ×2 (14:03→21:58)
--- NOTE | 2017-07-17 15:00 | HHI.PYPN ---
Subjective Remarks Pt seen and discussed with staff. She has been less labile and intrusive today. Mood remains euphoric. She is compliant with medications. No SI/HI Objective Alert: Yes [place]: Person, Place Mood: Other (elevated) Affect: Labile Memory Intact: Comment (Fair) Hallucinations: Other (Denies AVH) Delusions: No Delusion Type: Other (No delusions) Suicidal: Ideation (No SI) Homicidal: Ideation (No HI) Insight/Judgment poor Vitals/IOs Vital Signs Date Time Temp Pulse Resp B/P (MAP) Pulse Ox O2 Delivery O2 Flow Rate FiO2 07/17/17 06:34 97.8 78 18 90/50 (63) 99 07/13/17 18:18 Room Air Intake and Output 07/17/17 07/17/17 07/18/17 08:00 16:00 00:00 Intake Total 240 ml Balance 240 ml Assessment & Plan Problem List: (1) Schizoaffective disorder ICD Codes: F25.9 - Schizoaffective disorder Status: Acute Assessment & Plan Continue current tx plan.Estimated LOS: days Justification for Cont. Inpt. risk of decompensation Request HC Surrog/Guard Advoc?: No Problem Qualifiers (1) Schizoaffective disorder: Qualified Codes: F25.0 - Schizoaffective disorder, bipolar type Trina Fernandez MD Jul 17, 2017 15:00
[2017-07-17] MEDS ORDERED: DOCUSATE SODIUM 100 MG CAP PO ONE (15:30)
[2017-07-17 18:36] VITALS: BP 99/58; PULSE 91; RESP 18; TEMP 97.9; O2SAT 99
[2017-07-17] MEDS: REMOVE OLD NICOTINE PATCH T-DERMAL SCH (21:00)
[2017-07-17] MEDS: clonazePAM 1 MG TAB PO SCH (21:48)
[2017-07-18 04:55] VITALS: BP 101/61; PULSE 78; RESP 17; TEMP 98.1
[2017-07-18] MEDS: THIAMINE HCL 100 MG TAB PO SCH (09:31)
[2017-07-18] MEDS: HALOPERIDOL 5 MG TAB PO SCH ×2 (09:31→21:28)
[2017-07-18] MEDS: buPROPion HCL 75 MG TAB PO SCH ×2 (09:31→12:44)
[2017-07-18] MEDS: FOLIC ACID 1 MG TAB PO SCH (09:32)
[2017-07-18] MEDS: NICOTINE 21 MG/24 HR PATCH T-DERMAL SCH (09:32)
[2017-07-18] MEDS: IBUPROFEN 600 MG TAB PO PRN ×2 (09:32→21:45)
[2017-07-18] MEDS: OLANZapine 10 MG TAB PO SCH ×2 (09:32→21:29)
[2017-07-18] MEDS: carBAMazepine 200 MG TAB PO SCH ×2 (09:32→21:29)
--- NOTE | 2017-07-18 12:34 | HHI.PYPN ---
Subjective Remarks Patient seen and examined with counselor and nurse. Chart reviewed. Case discussed with nursing staff who reports that the patient has been no behavioral problem. Some ongoing thought disorganization per nursing staff, who reports at one point patient was talking about being a seahorse. On my exam , patient is perseverative on her bowels. She did have a small BM this morning and repeatedly requests prune juice from the RN. I offer additional bowel regimen, but patient declines and is fixated on the prune juice. Denies AVH. No SI or HI. Denies side effects from medications. No other physical complaints. Review of Systems ROS Limitations: Poor Historian Except as stated in HPI: all other systems reviewed are Neg Objective Alert: Yes [employer]: Person, Place Mood: Anxious Affect: Restricted Memory Intact: Comment (Fair) Hallucinations: Other (Denies AVH) Delusions: No Delusion Type: Other (none elicited. Some somatic preoccupation.) Suicidal: Ideation (No SI) Homicidal: Ideation (No HI) Insight/Judgment Poor Remarks No abnormal motor movements noted. Abdomen is soft and nontender. Grooming and hygiene fair. Thought process perseverative. Labs Test 07/18/17 10:30 Carbamazepine (Tegretol) Level 6.3 MCG/ML Labs reviewed. Tegretol level within the therapeutic range. Vitals/IOs Vital Signs Date Time Temp Pulse Resp B/P (MAP) Pulse Ox O2 Delivery O2 Flow Rate FiO2 07/18/17 04:55 98.1 78 17 101/61 (74) 07/17/17 18:36 99 Intake and Output 07/18/17 07/18/17 07/19/17 08:00 16:00 00:00 Intake Total 260 ml 260 ml Balance 260 ml 260 ml Assessment & Plan Problem List: (1) Schizoaffective disorder ICD Codes: F25.9 - Schizoaffective disorder Status: Acute Assessment & Plan Some ongoing thought disorder, and I will titrate the patient's Haldol to 7.5 mg twice daily to target this. Plan for additional Haldol Decanoate. Continue other psychotropics as ordered. Continue to monitor on the inpatient unit. Continue other medications and care as ordered. Justification for Cont. Inpt. Med changes. Risk for decompensation in less restrictive environment. Discharge Planning Pending psychiatric stabilization. Request HC Surrog/Guard Advoc?: No Problem Qualifiers (1) Schizoaffective disorder: Qualified Codes: F25.0 - Schizoaffective disorder, bipolar type Estuardo Mancilla MD Jul 18, 2017 12:34
[2017-07-18] MEDS ORDERED: PILL SPLITTER OTHER PRN (15:15)
[2017-07-18] MEDS: REMOVE OLD NICOTINE PATCH T-DERMAL SCH (21:00)
[2017-07-18] MEDS: clonazePAM 1 MG TAB PO SCH (21:28)
[2017-07-19 06:00] VITALS: BP 93/53; PULSE 69; RESP 18; TEMP 98.6; O2SAT 99
[2017-07-19] MEDS: NICOTINE 21 MG/24 HR PATCH T-DERMAL SCH (08:58)
[2017-07-19] MEDS: buPROPion HCL 75 MG TAB PO SCH ×2 (08:59→11:34)
[2017-07-19] MEDS: FOLIC ACID 1 MG TAB PO SCH (09:00)
[2017-07-19] MEDS: THIAMINE HCL 100 MG TAB PO SCH (09:00)
[2017-07-19] MEDS: HALOPERIDOL 5 MG TAB PO SCH ×2 (09:00→21:15)
[2017-07-19] MEDS: OLANZapine 10 MG TAB PO SCH ×2 (09:00→21:14)
[2017-07-19] MEDS: carBAMazepine 200 MG TAB PO SCH ×2 (09:00→21:14)
--- NOTE | 2017-07-19 11:02 | PD.TTN ---
Patient Problems 1. Discharge planning 2. Medication compliance 3. Knowledge deficit 4. Lack of coping skills Progress Toward Goals Provider Present: Dr. Vivi Mancilla Provider Input: Dr. Mancilla Inquired regarding patient's medication compliance and behaviors overnight. Nurse(s) Present: Lucius Nurse(s) Input: Nurse Lucius reported the patient appears more coherent today with a flight of ideas and disorganized thought process. Per Nurse Lucius the patient stated "I'm not God." Patient remains paranoid regarding a female peer and is seclusive . Patient is compliant with medications. Psychiatric Counselors Present: RAFITA Garcia Psych Therapist Input: Counselor reported there are no female beds available at [facility]. Counselor will send patient's packet to [facility] for placement review. Group Spec/RT/OT/CASTRO Present: GLORIA Macdonald Group Spec/RT/OT/CASTRO Input: Jorge A reported the patient rarely attends groups. Discharge Plan SMA Documentation Scribe: RAFITA Garcia Date Resolved: Jul 19, 2017 Ninoska Donato Jul 19, 2017 11:02
--- NOTE | 2017-07-19 13:07 | HHI.PYPN ---
Subjective Remarks Patient seen and examined. Chart reviewed. Case discussed in treatment team. Per nursing staff, patient has occasional episode of derailment but in general has been linear and logical in her thought process. Treatment team in general feels that patient is doing better now than she has in any of her other recent admissions. On my examination today, the patient's thought process is generally linear with only minor detours of derailment with extended interview. Denies any AVH. No delusions elicited. She is able to converse rationally regarding her discharge plan and is presently receptive to assisted living placement. Denies side effects from medications. No physical complaints. Patient reports she had a bowel movement today. Review of Systems ROS Limitations: Poor Historian Except as stated in HPI: all other systems reviewed are Neg Objective Alert: Yes [place]: Person, Place Mood: Calm Affect: Blunted Memory Intact: Comment (Fair) Hallucinations: Other (Denies AVH) Delusions: No Delusion Type: Other (no delusions) Suicidal: Ideation (No SI) Homicidal: Ideation (No HI) Insight/Judgment Poor Remarks No abnormal motor movements noted. Thought process fairly linear. Grooming and hygiene fair. Labs Labs reviewed. Vitals/IOs Vital Signs Date Time Temp Pulse Resp B/P (MAP) Pulse Ox O2 Delivery O2 Flow Rate FiO2 07/19/17 06:00 98.6 69 18 93/53 (66) 99 Intake and Output 07/19/17 07/19/17 07/20/17 08:00 16:00 00:00 Intake Total 720 ml Balance 720 ml Assessment & Plan Problem List: (1) Schizoaffective disorder ICD Codes: F25.9 - Schizoaffective disorder Status: Acute Assessment & Plan Continue current psychotropics as ordered. Plan to administer additional Haldol Decanoate tomorrow morning to bring total dose to 300 mg IM or 20 times the oral daily dose. Prior to doing so, I will check an EKG for QTc to make sure this interval was not prolonged with existing antipsychotic treatment. Continue to monitor on the inpatient unit. Continue other medications and care as ordered. Justification for Cont. Inpt. Risk for decompensation in less restrictive environment. Medication changes planned. Discharge Planning Possible assisted living placement. Case discussed with counselor. Request HC Surrog/Guard Advoc?: No Problem Qualifiers (1) Schizoaffective disorder: Qualified Codes: F25.0 - Schizoaffective disorder, bipolar type Estuardo Mancilla MD Jul 19, 2017 13:07
[2017-07-19 17:19] VITALS: BP 116/66; PULSE 84; RESP 16; TEMP 98.4; O2SAT 100
[2017-07-19] MEDS: REMOVE OLD NICOTINE PATCH T-DERMAL SCH (21:00)
[2017-07-19] MEDS: clonazePAM 1 MG TAB PO SCH (21:15)
[2017-07-19] MEDS: IBUPROFEN 600 MG TAB PO PRN (21:30)
[2017-07-20 06:22] VITALS: BP 99/56; PULSE 70; RESP 18; TEMP 97.7; O2SAT 97
[2017-07-20] MEDS ORDERED: HALOPERIDOL DECANOATE 50 MG/ML VIAL IM SCH (09:00)
[2017-07-20] MEDS: HALOPERIDOL 5 MG TAB PO SCH ×2 (09:45→21:16)
[2017-07-20] MEDS: THIAMINE HCL 100 MG TAB PO SCH (09:46)
[2017-07-20] MEDS: carBAMazepine 200 MG TAB PO SCH ×2 (09:46→21:17)
[2017-07-20] MEDS: OLANZapine 10 MG TAB PO SCH ×2 (09:46→21:16)
[2017-07-20] MEDS: FOLIC ACID 1 MG TAB PO SCH (09:46)
[2017-07-20] MEDS: NICOTINE 21 MG/24 HR PATCH T-DERMAL SCH (09:47)
[2017-07-20] MEDS: buPROPion HCL 75 MG TAB PO SCH ×2 (09:50→12:00)
--- NOTE | 2017-07-20 11:29 | HHI.PYPN ---
Subjective Remarks Patient seen and examined. Chart reviewed. Case discussed with nursing staff. On my examination today, patient informs me that she is moving her bowels well. She wants me to "ask me how old I am. I'm 18. Have you heard of human cloning? I'm a clone." She says that she can tell because "my scars are different. I need a cat named Naima." No SI or HI. Denies side effects from medications. No physical complaints. Patient did refuse EKG yesterday. I have explained the purpose of the EKG to her today, and she now says that she will comply. Review of Systems ROS Limitations: Psychotic, Poor Historian Except as stated in HPI: all other systems reviewed are Neg Objective Alert: Yes [place]: Person, Place Mood: Calm Affect: Blunted Memory Intact: Comment (Fair) Hallucinations: Other (No AVH) Delusions: Yes Delusion Type: Other (bizarre) Suicidal: Ideation (No SI) Homicidal: Ideation (No HI) Insight/Judgment Poor Remarks No motor abnormalities noted. Thought process fairly linear despite delusional content noted above. Labs Labs reviewed. Vitals/IOs Vital Signs Date Time Temp Pulse Resp B/P (MAP) Pulse Ox O2 Delivery O2 Flow Rate FiO2 07/20/17 06:22 97.7 70 18 99/56 (70) 97 Assessment & Plan Problem List: (1) Schizoaffective disorder ICD Codes: F25.9 - Schizoaffective disorder Status: Acute Assessment & Plan Titrate oral Haldol to 10 mg twice daily to target psychotic symptoms. Haldol Decanoate on hold pending EKG, which we will check today. Continue other psychotropics as ordered. Continue other medications and care as ordered. Justification for Cont. Inpt. Med changes. Impairment in reality construction. High risk for decompensation in less restrictive environment. Discharge Planning Pending psychiatric stabilization Request HC Surrog/Guard Advoc?: No Problem Qualifiers (1) Schizoaffective disorder: Qualified Codes: F25.0 - Schizoaffective disorder, bipolar type Estuardo Mancilla MD Jul 20, 2017 11:29
[2017-07-20 18:00] VITALS: BP 117/70; PULSE 95; RESP 18; TEMP 98.2; O2SAT 98
[2017-07-20] MEDS: REMOVE OLD NICOTINE PATCH T-DERMAL SCH (21:00)
[2017-07-20] MEDS: clonazePAM 1 MG TAB PO SCH (21:16)
[2017-07-21 05:48] VITALS: BP 94/50; PULSE 65; RESP 17; TEMP 97.3; O2SAT 97
--- NOTE | 2017-07-21 07:53 | EKG ---
Date Performed: 07/20/2017 Time Performed: 16:53:49 PTAGE: 56 years EKG: Sinus rhythm NORMAL ECG Since PREVIOUS TRACING , no significant change noted PREVIOUS TRACIN07/31/2010 22.06 DOCTOR: Aida Earl Interpretating Date/Time 07/21/2017 07:51:22
[2017-07-21] MEDS: OLANZapine 10 MG TAB PO SCH ×2 (08:30→22:10)
[2017-07-21] MEDS: carBAMazepine 200 MG TAB PO SCH ×2 (08:30→22:09)
[2017-07-21] MEDS: FOLIC ACID 1 MG TAB PO SCH (08:30)
[2017-07-21] MEDS: THIAMINE HCL 100 MG TAB PO SCH (08:30)
[2017-07-21] MEDS: NICOTINE 21 MG/24 HR PATCH T-DERMAL SCH (08:31)
[2017-07-21] MEDS: HALOPERIDOL 5 MG TAB PO SCH ×2 (08:31→22:09)
[2017-07-21] MEDS: buPROPion HCL 75 MG TAB PO SCH ×2 (09:11→11:20)
--- NOTE | 2017-07-21 11:46 | HHI.PYPN ---
Subjective Remarks Patient seen and examined with counselor. Chart reviewed. Case discussed with nursing staff. On my examination today, the patient no longer believes that she is a clone. She remains somewhat perseverative, today on discontinuing her thiamine and folate. She derails a little bit toward the end of our conversation saying, "You don't have a name when you do the math. It's algebra. Let's do the name Estuardo [this bond writer's first name]. You take out the 2 D's. You don't have a name." No side effects from medications. No physical complaints. Review of Systems ROS Limitations: Poor Historian Except as stated in HPI: all other systems reviewed are Neg Objective Alert: Yes [place]: Person, Place Mood: Calm Affect: Blunted Memory Intact: Comment (not formally assessed) Hallucinations: Other (no hallucinations) Delusions: No Delusion Type: Other (no delusions elicited today) Suicidal: Ideation (No SI) Homicidal: Ideation (No HI) Insight/Judgment Poor Remarks No hand tremor, no cogwheeling, no other motoric abnormalities noted. Thought process generally linear is a little bit perseverative, but the patient tends to derail with extended conversation. Grooming and hygiene fair. Labs labs reviewed. EKG read as normal sinus rhythm with a QTC of 385 ms. Vitals/IOs Vital Signs Date Time Temp Pulse Resp B/P (MAP) Pulse Ox O2 Delivery O2 Flow Rate FiO2 07/21/17 05:48 97.3 65 17 94/50 (65) 97 Assessment & Plan Problem List: (1) Schizoaffective disorder ICD Codes: F25.9 - Schizoaffective disorder Status: Acute Assessment & Plan Administer Haldol Decanoate 200 mg IM to bring total dose to 300 mg IM, or about 15 times current oral daily dose. Continue oral supplementation with Haldol PO. Continue other psychotropics as ordered. I will discontinue the thiamine and folate per patient request. Continue to monitor on the inpatient unit. Continue other medications and care as ordered. I did discuss the patient's case briefly with FACT team SW who was present for [address] today. Justification for Cont. Inpt. Medication changes. Impairment in reality construction. High risk for decompensation in less restrictive environment. Discharge Planning Assisted living placement. Patient would like to go to [facility] but is receptive to any placement other than [facility] or [facility]. Case discussed with counselor. Request HC Surrog/Guard Advoc?: No Problem Qualifiers (1) Schizoaffective disorder: Qualified Codes: F25.0 - Schizoaffective disorder, bipolar type Estuardo Mancilla MD Jul 21, 2017 11:46
[2017-07-21] MEDS ORDERED: HALOPERIDOL DECANOATE 50 MG/ML VIAL IM ONE (14:00)
[2017-07-21 20:28] VITALS: BP 115/60; PULSE 90; RESP 17; TEMP 98.1; O2SAT 100
[2017-07-21] MEDS: REMOVE OLD NICOTINE PATCH T-DERMAL SCH (21:00)
[2017-07-21] MEDS: IBUPROFEN 600 MG TAB PO PRN ×2 (22:00→22:08)
[2017-07-21] MEDS: clonazePAM 1 MG TAB PO SCH (22:09)
[2017-07-22] MEDS: IBUPROFEN 600 MG TAB PO PRN ×2 (03:37→23:17)
[2017-07-22 05:20] VITALS: BP 91/58; PULSE 79; RESP 18; TEMP 97.4; O2SAT 98
[2017-07-22] MEDS: carBAMazepine 200 MG TAB PO SCH ×2 (09:35→21:00)
[2017-07-22] MEDS: OLANZapine 10 MG TAB PO SCH ×2 (09:35→21:00)
[2017-07-22] MEDS: buPROPion HCL 75 MG TAB PO SCH ×2 (09:35→12:16)
[2017-07-22] MEDS: NICOTINE 21 MG/24 HR PATCH T-DERMAL SCH (09:35)
[2017-07-22] MEDS: HALOPERIDOL 5 MG TAB PO SCH ×2 (09:37→21:00)
--- NOTE | 2017-07-22 11:55 | HHI.PYPN ---
Subjective Remarks Patient seen and examined. Chart reviewed. Case discussed with nursing staff. On my exam today, patient is relevant and appropriate in conversation. She does not verbalize any psychotic material, although mild perseveration persists , today about dyeing her hair, and I have already written an order permitting her to dye her hair with staff supervision. She says that she was visited by a risk control field representative from [facility] and is agreeable to going there if accepted. She says that she should have gone there when she had the chance in the past instead of moving in with her mother. Denies side effects from medications, although she is a little resistant to continuing with Haldol Dec going forward. No physical complaints. Review of Systems Except as stated in HPI: all other systems reviewed are Neg Objective Alert: Yes [place]: Person, Place (at least) Mood: Calm Affect: Appropriate Memory Intact: Comment (not formally assessed) Hallucinations: Other (no AVH) Delusions: No Delusion Type: Other (no delusional material) Suicidal: Ideation (no suicidal ideation) Homicidal: Ideation (no homicidal ideation) Insight/Judgment poor Remarks Thought process fairly linear today. Grooming and hygiene fair. Speech within normal limits for rate, tone and volume. No hand tremor, dystonia or dyskinesias noted. Labs Labs reviewed. Vitals/IOs Vital Signs Date Time Temp Pulse Resp B/P (MAP) Pulse Ox O2 Delivery O2 Flow Rate FiO2 07/22/17 05:20 97.4 79 18 91/58 (69) 98 Assessment & Plan Problem List: (1) Schizoaffective disorder ICD Codes: F25.9 - Schizoaffective disorder Status: Acute Assessment & Plan Continue oral Haldol supplementing Haldol Decanoate 300mg IM. Patient will next be due for Haldol Dec on 08/17. Continue Tegretol, Zyprexa and Wellbutrin as ordered. Continue other medications and care as ordered. Justification for Cont. Inpt. High risk for decompensation in less restrictive environment. Discharge Planning Placement Request HC Surrog/Guard Advoc?: No Problem Qualifiers (1) Schizoaffective disorder: Qualified Codes: F25.0 - Schizoaffective disorder, bipolar type Estuardo Mancilla MD Jul 22, 2017 11:55
[2017-07-22 17:08] VITALS: BP 104/56; PULSE 88; RESP 18; TEMP 98.4
[2017-07-22] MEDS: clonazePAM 1 MG TAB PO SCH (21:00)
[2017-07-22] MEDS: REMOVE OLD NICOTINE PATCH T-DERMAL SCH (21:00)
[2017-07-23 06:09] VITALS: BP 109/53; PULSE 79; RESP 18; TEMP 97.5; O2SAT 98
[2017-07-23] MEDS: NICOTINE 21 MG/24 HR PATCH T-DERMAL SCH (09:51)
[2017-07-23] MEDS: buPROPion HCL 75 MG TAB PO SCH ×2 (09:51→13:31)
[2017-07-23] MEDS: HALOPERIDOL 5 MG TAB PO SCH ×2 (09:52→21:11)
[2017-07-23] MEDS: carBAMazepine 200 MG TAB PO SCH ×2 (09:52→21:11)
[2017-07-23] MEDS: OLANZapine 10 MG TAB PO SCH ×2 (09:52→21:11)
--- NOTE | 2017-07-23 17:33 | HHI.PYPN ---
Subjective Remarks Patient was seen and case discussed with nursing. Patient is pleasant and cooperative with exam. No longer believes she 18, no other delusions elicited. Somewhat watchful. Is perseverative on discharge. Compliant with medications and behaving well me unit Objective Alert: Yes [place]: Person, Place (at least), Situation Mood: Calm Affect: Restricted Memory Intact: Comment (not formally assessed) Hallucinations: Other (no AVH) Delusions: No Delusion Type: Other (no delusional material) Suicidal: Ideation (no suicidal ideation) Homicidal: Ideation (no homicidal ideation) Insight/Judgment Poor Vitals/IOs Vital Signs Date Time Temp Pulse Resp B/P (MAP) Pulse Ox O2 Delivery O2 Flow Rate FiO2 07/23/17 06:09 97.5 79 18 109/53 (71) 98 Assessment & Plan Problem List: (1) Schizoaffective disorder ICD Codes: F25.9 - Schizoaffective disorder Status: Acute Assessment & Plan Continue current treatment plan Justification for Cont. Inpt. Patient would decompensate in a less restrictive setting Request HC Surrog/Guard Advoc?: No Problem Qualifiers (1) Schizoaffective disorder: Qualified Codes: F25.0 - Schizoaffective disorder, bipolar type Apollo Hope DO Jul 23, 2017 17:33
[2017-07-23] MEDS: REMOVE OLD NICOTINE PATCH T-DERMAL SCH (21:00)
[2017-07-23] MEDS: clonazePAM 1 MG TAB PO SCH (21:12)
[2017-07-24 04:40] VITALS: BP 92/55; PULSE 64; RESP 17; TEMP 98.1; O2SAT 96
[2017-07-24] MEDS: carBAMazepine 200 MG TAB PO SCH ×2 (09:07→20:58)
[2017-07-24] MEDS: HALOPERIDOL 5 MG TAB PO SCH ×2 (09:07→20:59)
[2017-07-24] MEDS: OLANZapine 10 MG TAB PO SCH ×2 (09:07→20:59)
[2017-07-24] MEDS: buPROPion HCL 75 MG TAB PO SCH ×2 (09:07→12:00)
[2017-07-24] MEDS: NICOTINE 21 MG/24 HR PATCH T-DERMAL SCH (09:07)
--- NOTE | 2017-07-24 11:14 | HHI.PYPN ---
Subjective Remarks Patient was seen and case discussed with nursing. Patient is pleasant and cooperative with exam. She continues to improve and is more lucid. No delusions were elicited. Is looking forward to her discharge to [facility]. Is perseverative on coloring her hair before she leaves. Tolerating her medications well Objective Alert: Yes [place]: Person, Place (at least), Date, Situation Mood: Calm Affect: Other (perseverant) Memory Intact: Comment (not formally assessed) Hallucinations: Other (no AVH) Delusions: No Delusion Type: Other (no delusional material) Suicidal: Ideation (no suicidal ideation) Homicidal: Ideation (no homicidal ideation) Insight/Judgment Poor Vitals/IOs Vital Signs Date Time Temp Pulse Resp B/P (MAP) Pulse Ox O2 Delivery O2 Flow Rate FiO2 07/24/17 04:40 98.1 64 17 92/55 (67) 96 Assessment & Plan Problem List: (1) Schizoaffective disorder ICD Codes: F25.9 - Schizoaffective disorder Status: Acute Assessment & Plan Continue current treatment plan Justification for Cont. Inpt. Patient will decompensate in a less restrictive setting Request HC Surrog/Guard Advoc?: No Problem Qualifiers (1) Schizoaffective disorder: Qualified Codes: F25.0 - Schizoaffective disorder, bipolar type Apollo Hope DO Jul 24, 2017 11:14
[2017-07-24 18:00] VITALS: BP 149/64; PULSE 84; RESP 16; TEMP 97.8; O2SAT 100
[2017-07-24] MEDS: IBUPROFEN 600 MG TAB PO PRN (20:58)
[2017-07-24] MEDS: clonazePAM 1 MG TAB PO SCH (20:58)
[2017-07-24] MEDS: REMOVE OLD NICOTINE PATCH T-DERMAL SCH (21:00)
[2017-07-25 06:42] VITALS: BP 103/63; PULSE 68; RESP 16; TEMP 97.9; O2SAT 96
[2017-07-25] MEDS: HALOPERIDOL 5 MG TAB PO SCH ×2 (09:00→21:00)
[2017-07-25] MEDS: NICOTINE 21 MG/24 HR PATCH T-DERMAL SCH (09:05)
[2017-07-25] MEDS: carBAMazepine 200 MG TAB PO SCH ×2 (09:06→21:00)
[2017-07-25] MEDS: buPROPion HCL 75 MG TAB PO SCH ×2 (09:06→11:15)
[2017-07-25] MEDS: OLANZapine 10 MG TAB PO SCH ×2 (09:06→21:00)
--- NOTE | 2017-07-25 16:50 | HHI.PYPN ---
Subjective Remarks Patient seen in her room with floor staff, chart reviewed, patient compliant medication. She did recognize me from prior contact years ago., States she is feeling somewhat better, now denies voices or visions. Denies suicidality. States she is still a member of the fact team. For now continue treatment Review of Systems Except as stated in HPI: all other systems reviewed are Neg Objective Alert: Yes [place]: Person, Place (at least), Date, Situation Mood: Calm Affect: Other (perseverant) Memory Intact: Comment (not formally assessed) Hallucinations: Other (no AVH) Delusions: No Delusion Type: Other (no delusional material) Suicidal: Ideation (no suicidal ideation) Homicidal: Ideation (no homicidal ideation) Insight/Judgment Poor Vitals/IOs Vital Signs Date Time Temp Pulse Resp B/P (MAP) Pulse Ox O2 Delivery O2 Flow Rate FiO2 07/25/17 06:42 97.9 68 16 103/63 (76) 96 Assessment & Plan Problem List: (1) Schizoaffective disorder ICD Codes: F25.9 - Schizoaffective disorder Status: Acute Assessment & Plan Estimated LOS: days patient continues psychotic but calmer and somewhat more appropriate. For now continue treatment Justification for Cont. Inpt. At this time patient decompensate if not placed in an appropriate level of care Discharge Planning To be determined Request HC Surrog/Guard Advoc?: No Problem Qualifiers (1) Schizoaffective disorder: Qualified Codes: F25.0 - Schizoaffective disorder, bipolar type Darrel Friedman MD Jul 25, 2017 16:50
[2017-07-25 18:00] VITALS: BP 98/54; PULSE 94; RESP 18; TEMP 98; O2SAT 96
[2017-07-25] MEDS: clonazePAM 1 MG TAB PO SCH (21:00)
[2017-07-25] MEDS: REMOVE OLD NICOTINE PATCH T-DERMAL SCH (21:00)
[2017-07-26 06:22] VITALS: BP 95/52; PULSE 74; RESP 18; TEMP 98.5; O2SAT 95
[2017-07-26] MEDS: NICOTINE 21 MG/24 HR PATCH T-DERMAL SCH (09:10)
[2017-07-26] MEDS: HALOPERIDOL 5 MG TAB PO SCH ×2 (09:10→21:00)
[2017-07-26] MEDS: OLANZapine 10 MG TAB PO SCH ×2 (09:11→21:00)
[2017-07-26] MEDS: carBAMazepine 200 MG TAB PO SCH ×2 (09:11→21:00)
[2017-07-26] MEDS: buPROPion HCL 75 MG TAB PO SCH ×2 (09:11→12:30)
--- NOTE | 2017-07-26 13:34 | HHI.PYPN ---
Subjective Remarks Patient seen in her room with nurse Jaiden, chart reviewed, patient's Tegretol level drawn on 07/18 is 6.3 on 200 mg twice a day will increase to 200 mg a.m. 300 mg at at bedtime recheck blood level on 07/29. Patient continues with speech still somewhat rapid and pressured still some mild grandiosity and intrusiveness. She is aware though of and willingness to return to [facility] and follow-through with the fact team Review of Systems Except as stated in HPI: all other systems reviewed are Neg Objective Alert: Yes [place]: Person, Place (at least), Date, Situation Mood: Calm Affect: Other (perseverant) Memory Intact: Comment (not formally assessed) Hallucinations: Other (no AVH) Delusions: No Delusion Type: Other (no delusional material) Suicidal: Ideation (no suicidal ideation) Homicidal: Ideation (no homicidal ideation) Insight/Judgment Poor Vitals/IOs Vital Signs Date Time Temp Pulse Resp B/P (MAP) Pulse Ox O2 Delivery O2 Flow Rate FiO2 07/26/17 06:22 98.5 74 18 95/52 (66) 95 Intake and Output 07/26/17 07/26/17 07/27/17 08:00 16:00 00:00 Intake Total 240 ml Balance 240 ml Assessment & Plan Problem List: (1) Schizoaffective disorder ICD Codes: F25.9 - Schizoaffective disorder Status: Acute Assessment & Plan Estimated LOS: days patient remains somewhat grandiose mildly psychotic. She medication adjustment above Justification for Cont. Inpt. At this time patient will decompensate placed in a lower level of care Discharge Planning To be determined Request HC Surrog/Guard Advoc?: No Problem Qualifiers (1) Schizoaffective disorder: Qualified Codes: F25.0 - Schizoaffective disorder, bipolar type Darrel Friemdan MD Jul 26, 2017 13:33
[2017-07-26] MEDS: IBUPROFEN 600 MG TAB PO PRN (17:04)
[2017-07-26 18:15] VITALS: BP 108/67; PULSE 69; RESP 17; TEMP 98.1; O2SAT 96
[2017-07-26] MEDS: REMOVE OLD NICOTINE PATCH T-DERMAL SCH (21:00)
[2017-07-26] MEDS: clonazePAM 1 MG TAB PO SCH (21:00)
[2017-07-27 05:44] VITALS: BP 78/51; PULSE 62; RESP 18; TEMP 97.3; O2SAT 95
[2017-07-27] MEDS: HALOPERIDOL 5 MG TAB PO SCH ×2 (08:15→20:44)
[2017-07-27] MEDS: NICOTINE 21 MG/24 HR PATCH T-DERMAL SCH (08:15)
[2017-07-27] MEDS: carBAMazepine 200 MG TAB PO SCH ×2 (08:15→20:45)
[2017-07-27] MEDS: OLANZapine 10 MG TAB PO SCH ×2 (08:15→20:44)
[2017-07-27] MEDS: buPROPion HCL 75 MG TAB PO SCH ×2 (08:18→13:33)
--- NOTE | 2017-07-27 12:33 | HHI.PYPN ---
Subjective Remarks Patient seen in [place] nurse Jaiden, chart review, patient compliant medication. Patient is making an effort to be more social about on the unit. She is calm cooperative still somewhat intense. She is tolerating the increased dose of Tegretol without problems. For now continue treatment Review of Systems Except as stated in HPI: all other systems reviewed are Neg Objective Alert: Yes [place]: Person, Place (at least), Date, Situation Mood: Calm Affect: Other (perseverant) Memory Intact: Comment (not formally assessed) Hallucinations: Other (no AVH) Delusions: No Delusion Type: Other (no delusional material) Suicidal: Ideation (no suicidal ideation) Homicidal: Ideation (no homicidal ideation) Insight/Judgment Poor Vitals/IOs Vital Signs Date Time Temp Pulse Resp B/P (MAP) Pulse Ox O2 Delivery O2 Flow Rate FiO2 07/27/17 05:44 97.3 62 18 78/51 (60) 95 Assessment & Plan Problem List: (1) Schizoaffective disorder ICD Codes: F25.9 - Schizoaffective disorder Status: Acute Assessment & Plan Estimated LOS: days patient continue somewhat intense vigilant though improving calmer more social and compliant medication Justification for Cont. Inpt. At this time patient decompensated placed on a lower level of care Discharge Planning To be determined Request HC Surrog/Guard Advoc?: No Problem Qualifiers (1) Schizoaffective disorder: Qualified Codes: F25.0 - Schizoaffective disorder, bipolar type Darrel Friedman MD Jul 27, 2017 12:33
[2017-07-27 17:06] VITALS: BP 108/69; PULSE 70; RESP 16; TEMP 98; O2SAT 98
[2017-07-27] MEDS: IBUPROFEN 600 MG TAB PO PRN (18:47)
[2017-07-27] MEDS: clonazePAM 1 MG TAB PO SCH (20:44)
[2017-07-27] MEDS: REMOVE OLD NICOTINE PATCH T-DERMAL SCH (20:46)
[2017-07-28 06:17] VITALS: BP 89/58; PULSE 65; RESP 16; TEMP 96.7; O2SAT 95
[2017-07-28] MEDS: OLANZapine 10 MG TAB PO SCH ×2 (08:43→20:47)
[2017-07-28] MEDS: NICOTINE 21 MG/24 HR PATCH T-DERMAL SCH (08:43)
[2017-07-28] MEDS: buPROPion HCL 75 MG TAB PO SCH ×2 (08:43→11:47)
[2017-07-28] MEDS: carBAMazepine 200 MG TAB PO SCH ×2 (08:44→20:47)
[2017-07-28] MEDS: HALOPERIDOL 5 MG TAB PO SCH ×2 (08:44→20:47)
--- NOTE | 2017-07-28 14:12 | HHI.PYPN ---
Subjective Remarks Patient seen in [place] with nurse Lucius, patient continues to make efforts to be in milieu and participated groups. She does denies suicidality homicidality or voices at this time. Has been compliant with medication patient is scheduled for Tegretol blood level drawn tomorrow morning. Patient continues well and we can verify bed availability [facility] consider discharge tomorrow Review of Systems Except as stated in HPI: all other systems reviewed are Neg Mental Status Examination Appearance: Appropriate Consciousness: Alert Speech: Rapid, Other (rambling, difficult to follow) Orientation: Person, Place Memory: Impaired (describe) (likely some degree of confabulation) Thought Content: Linear Thought Associations: Loose associations Fund of Knowledge: Below average Hallucination Type: None (denies at this time) Attention and Concentration: Easily Distracted Suicidal Ideation: No Previous Suicide Attempts: No (none recent) Homicidal Ideation: No Previous Homicide Attempts: No Affect: Other (good range and intensity) Mood: Euthymic Motor Activity: Normal gait Results Vitals/IOs Vital Signs Date Time Temp Pulse Resp B/P (MAP) Pulse Ox O2 Delivery O2 Flow Rate FiO2 07/28/17 06:17 96.7 65 16 89/58 (68) 95 Assessment & Plan Problem List: (1) Schizoaffective disorder ICD Codes: F25.9 - Schizoaffective disorder Status: Acute Assessment & Plan Estimated LOS: days patient is compliant with medication his ability Tegretol blood level tomorrow. Patient somewhat less intrusive more focused and concentrating consider discharge tomorrow if bed available at [facility] Justification for Cont. Inpt. With this time patient decompensate from a placed in an appropriate level of care Discharge Planning Consider discharge [facility] tomorrow if bed available Request HC Surrog/Guard Advoc?: No Problem Qualifiers (1) Schizoaffective disorder: Qualified Codes: F25.0 - Schizoaffective disorder, bipolar type Darrel Friedman MD Jul 28, 2017 14:12
[2017-07-28] MEDS: IBUPROFEN 600 MG TAB PO PRN (17:30)
[2017-07-28 18:35] VITALS: BP 115/66; PULSE 78; RESP 16; TEMP 98.2; O2SAT 97
[2017-07-28] MEDS: clonazePAM 1 MG TAB PO SCH (20:47)
[2017-07-28] MEDS: REMOVE OLD NICOTINE PATCH T-DERMAL SCH (21:00)
[2017-07-29 05:54] VITALS: BP 84/45; TEMP 97.8
[2017-07-29] MEDS: NICOTINE 21 MG/24 HR PATCH T-DERMAL SCH (08:34)
[2017-07-29] MEDS: carBAMazepine 200 MG TAB PO SCH ×2 (08:35→20:20)
[2017-07-29] MEDS: OLANZapine 10 MG TAB PO SCH ×2 (08:35→20:19)
[2017-07-29] MEDS: buPROPion HCL 75 MG TAB PO SCH ×2 (08:35→13:43)
[2017-07-29] MEDS: HALOPERIDOL 5 MG TAB PO SCH ×2 (08:35→20:19)
--- NOTE | 2017-07-29 12:25 | HHI.PYPN ---
Subjective Remarks Patient seen in [place] with nurse Josemanuel and counselor Ninoska, chart reviewed, patient compliant medications. Patient's Tegretol level this a.m. is 6.6 on 20 mg a.m. 300 mg at bedtime. Will increase to 20 mg a.m. 400 mg at bedtime and recheck blood level 08/01. Otherwise patient showing some slight decrease in intensity and intrusiveness over behaviors still is willing to but to [facility] as soon as been placement is confirmed. She denies suicidality of voices at this time Chief Complaint: patient confused disorganized appears to be responding to internal stimuli, Review of Systems Except as stated in HPI: all other systems reviewed are Neg Mental Status Examination Appearance: Appropriate Consciousness: Alert Motor Activity: Normal gait Hallucination Type: None (denies at this time) Results Labs Test 07/29/17 07:12 Carbamazepine (Tegretol) Level 6.6 MCG/ML Vitals/IOs Vital Signs Date Time Temp Pulse Resp B/P (MAP) Pulse Ox O2 Delivery O2 Flow Rate FiO2 07/29/17 05:54 97.8 84/45 (58) 07/28/17 18:35 78 16 97 Assessment & Plan Problem List: (1) Schizoaffective disorder ICD Codes: F25.9 - Schizoaffective disorder Status: Acute Assessment & Plan Estimated LOS: days patient continues intense and intrusive but is softer and calmer. Compliant medications. See medication adjustment above. Continue to await word from [facility] [employer] Justification for Cont. Inpt. At this time patient decompensate in place to the lower level of care Discharge Planning We await word from [facility] on bed availability, also continues medication management and adjustment Request HC Surrog/Guard Advoc?: No Problem Qualifiers (1) Schizoaffective disorder: Qualified Codes: F25.0 - Schizoaffective disorder, bipolar type Darrel Friedman MD Jul 29, 2017 12:25
[2017-07-29 18:00] VITALS: BP 111/64; PULSE 76; RESP 17; TEMP 97.5; O2SAT 97
[2017-07-29] MEDS: IBUPROFEN 600 MG TAB PO PRN (18:15)
[2017-07-29] MEDS: clonazePAM 1 MG TAB PO SCH (20:19)
[2017-07-29] MEDS: REMOVE OLD NICOTINE PATCH T-DERMAL SCH (20:20)
[2017-07-30 06:16] VITALS: BP 84/40; PULSE 75; RESP 18; TEMP 98; O2SAT 96
[2017-07-30] MEDS: buPROPion HCL 75 MG TAB PO SCH ×2 (08:00→12:15)
[2017-07-30] MEDS: carBAMazepine 200 MG TAB PO SCH ×2 (09:00→21:00)
[2017-07-30] MEDS: HALOPERIDOL 5 MG TAB PO SCH ×3 (09:04→21:23)
[2017-07-30] MEDS: OLANZapine 10 MG TAB PO SCH ×2 (09:04→21:21)
[2017-07-30] MEDS: NICOTINE 21 MG/24 HR PATCH T-DERMAL SCH (09:05)
[2017-07-30] MEDS: IBUPROFEN 600 MG TAB PO PRN (14:45)
--- NOTE | 2017-07-30 14:50 | HHI.PYPN ---
Subjective Remarks Pt seen and discussed with staff. She is compliant with medications and care. She is less disorganized and internally preoccupied and has not been agitated or aggressive. No SI/HI Chief Complaint: Pt admitted for khushi with psychosis Mental Status Examination Appearance: Appropriate Consciousness: Alert Motor Activity: Normal gait Speech: Unremarkable Language: Adequate, Perseveration Attention and Concentration: Easily Distracted Memory: Unremarkable Mood: Appropriate Affect: Appropriate Thought Process & Associations: Intact Thought Content: Appropriate Hallucination Type: None (denies at this time) Suicidal Ideation: No Suicidal Plan: No Suicidal Intention: No Homicidal Ideation: No Homicidal Plan: No Homicidal Intention: No Insight: Fair Judgment: Adequate Results Vitals/IOs Vital Signs Date Time Temp Pulse Resp B/P (MAP) Pulse Ox O2 Delivery O2 Flow Rate FiO2 07/30/17 06:16 98.0 75 18 84/40 (55) 96 Assessment & Plan Problem List: (1) Schizoaffective disorder ICD Codes: F25.9 - Schizoaffective disorder Status: Acute Assessment & Plan Continue current tx plan. Estimated LOS: days Justification for Cont. Inpt. risk of decompensation Request HC Surrog/Guard Advoc?: No Problem Qualifiers (1) Schizoaffective disorder: Qualified Codes: F25.0 - Schizoaffective disorder, bipolar type Trina Fernandez MD Jul 30, 2017 14:50
[2017-07-30 18:21] VITALS: BP 107/59; PULSE 77; RESP 18; TEMP 98; O2SAT 99
[2017-07-30] MEDS: REMOVE OLD NICOTINE PATCH T-DERMAL SCH (21:00)
[2017-07-30] MEDS: clonazePAM 1 MG TAB PO SCH (21:20)
[2017-07-31 05:37] VITALS: BP 90/52; PULSE 65; RESP 16; TEMP 97.6; O2SAT 97
[2017-07-31] MEDS: OLANZapine 10 MG TAB PO SCH ×2 (09:04→20:44)
[2017-07-31] MEDS: carBAMazepine 200 MG TAB PO SCH ×2 (09:04→20:45)
[2017-07-31] MEDS: HALOPERIDOL 5 MG TAB PO SCH ×3 (09:05→20:44)
[2017-07-31] MEDS: NICOTINE 21 MG/24 HR PATCH T-DERMAL SCH (09:07)
[2017-07-31] MEDS: buPROPion HCL 75 MG TAB PO SCH ×2 (09:13→11:52)
[2017-07-31] MEDS: ACETAMINOPHEN 325 MG TAB PO PRN ×2 (13:20→17:07)
[2017-07-31 16:58] VITALS: BP 107/58; PULSE 66; RESP 18; TEMP 98.2; O2SAT 98
--- NOTE | 2017-07-31 19:17 | HHI.PYPN ---
Subjective Remarks Pt seen and discussed with staff. She has had no behavioral problems today. She has been compliant with medications and denies side effects. Mood continues to improve. No SI/HI Chief Complaint: Pt admitted for khushi with psychosis Mental Status Examination Appearance: Appropriate Consciousness: Alert Motor Activity: Normal gait Speech: Unremarkable Language: Adequate, Perseveration Attention and Concentration: Adequate Memory: Unremarkable Mood: Appropriate Affect: Appropriate Thought Process & Associations: Intact Thought Content: Appropriate Hallucination Type: None (denies at this time) Suicidal Ideation: No Suicidal Plan: No Suicidal Intention: No Homicidal Ideation: No Homicidal Plan: No Homicidal Intention: No Insight: Fair Judgment: Adequate Results Vitals/IOs Vital Signs Date Time Temp Pulse Resp B/P (MAP) Pulse Ox O2 Delivery O2 Flow Rate FiO2 07/31/17 16:58 98.2 66 18 107/58 (74) 98 Assessment & Plan Problem List: (1) Schizoaffective disorder ICD Codes: F25.9 - Schizoaffective disorder Status: Acute Assessment & Plan Pt improving. Continue current tx plan. Estimated LOS: days Justification for Cont. Inpt. risk of decompenstaion Request HC Surrog/Guard Advoc?: No Problem Qualifiers (1) Schizoaffective disorder: Qualified Codes: F25.0 - Schizoaffective disorder, bipolar type Trina Fernandez MD Jul 31, 2017 19:16
[2017-07-31] MEDS: clonazePAM 1 MG TAB PO SCH (20:44)
[2017-07-31] MEDS: REMOVE OLD NICOTINE PATCH T-DERMAL SCH (20:44)
[2017-08-01 06:10] VITALS: BP 101/51; PULSE 70; RESP 16; TEMP 97.6; O2SAT 96
[2017-08-01] MEDS: NICOTINE 21 MG/24 HR PATCH T-DERMAL SCH (08:40)
[2017-08-01] MEDS: HALOPERIDOL 5 MG TAB PO SCH (08:40)
[2017-08-01] MEDS: OLANZapine 10 MG TAB PO SCH (08:41)
[2017-08-01] MEDS: carBAMazepine 200 MG TAB PO SCH (08:41)
[2017-08-01] MEDS: buPROPion HCL 75 MG TAB PO SCH ×2 (08:56→11:14)
[2017-08-01] MEDS ORDERED: BUPR150CR PO (11:06)
[2017-08-01] MEDS ORDERED: OLAN10TA PO (11:06)
[2017-08-01] MEDS ORDERED: KLON2TAB PO (11:06)
[2017-08-01] MEDS ORDERED: CARB200T PO (11:06)
[2017-08-01] MEDS ORDERED: HALO10TA PO (11:06)
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
--- NOTE | 2017-08-01 12:30 | RADRPT ---
EXAM DATE/TIME: 08/01/2017 12:00 [facility] COMPARISON: No previous studies available for comparison. INDICATIONS : For placement, evaluate for communicable disease MEDICAL HISTORY : Seizure. Mitral valve prolapse. Schizophrenia. Bipolar. Von [place] SURGICAL HISTORY : Appendectomy. ENCOUNTER: Initial ACUITY: 1 day PAIN SCORE: 0/10 LOCATION: Bilateral chest FINDINGS: A single view of the chest demonstrates the lungs to be symmetrically aerated without evidence of mas s, infiltrate or effusion. The cardiomediastinal contours are unremarkable. Osseous structures are intact with mild scoliosis of lateral lumbar spine to the right.. CONCLUSION: No acute disease. Brent Morgan MD on August 01, 2017 at 12:28 Board Certified Radiologist. This report was verified electronically.
== END 2017-08-01 14:30 | DRG 885 ==
LOC: NEPD 16:54 → NEDA 07-13 18:09 → H270 07-13 20:22 → H260 07-15 10:35
PROVIDERS: ADMIT Psychiatry & Neurology Psychiatry; ATTEND Psychiatry & Neurology Psychiatry
DX: F25.9 Schizoaffective disorder, unspecified (principal); E87.1 Hypo-osmolality and hyponatremia
CPT/HCPCS: 71010; 80048; 80053; 80061; 80156; 80307; 83036; 85025; 93005; J1631; Q0163